=== PATIENT | male | born 1945 | race Caucasian/White ===

== ENCOUNTER 2018-08-27 16:27 | Observation (INO) | payer MEDICARE, OTHER ==
[~2018-08-27] VITALS: Ht 182.9 cm; Wt 107.9 kg
[2018-08-27 17:34] LABS: BASOPHILS ABSOLUTE AUTO 0.03 K/mm3 (0.00-0.23); BASOPHILS PERCENT AUTO 0 % (0-2); EOSINOPHILS ABSOLUTE AUTO 0.03 K/mm3 (0.00-0.68); EOSINOPHILS PERCENT AUTO 0 % (0-6); Hematocrit 44.9 % (37.0-53.0); Hemoglobin 14.4 g/dL (13.5-17.5); IMMATURE GRAN ABSOLUTE AUTO 0.02 K/mm3 (0.00-0.10); IMMATURE GRAN PERCENT AUTO 0 % (0-1); LYMPHOCYTES ABSOLUTE AUTO 1.53 K/mm3 (0.84-5.20); LYMPHOCYTES PERCENT AUTO 21 % (21-46); MONOCYTES ABSOLUTE AUTO 0.43 K/mm3 (0.16-1.47); MONOCYTES PERCENT AUTO 6 % (4-13); Mean Corpuscular HGB 32.7 pg (26.0-34.0); Mean Corpuscular HGB Conc 32.1 g/dL (31.5-36.5); Mean Corpuscular Volume 102 fL (80-100); Mean Platelet Volume 10.7 fL (9.1-12.4); NEUTROPHILS ABSOLUTE AUTO 5.28 K/mm3 (1.96-9.15); NEUTROPHILS PERCENT AUTO 72 % (41-73); Platelet Count 214 K/mm3 (150-400); RDW Coefficient Variation 13.5 % (11.7-14.2); RDW Standard Deviation 51.5 fL (35.1-46.3); White Blood Cell Count 7.32 K/mm3 (4.00-11.30)
[2018-08-27 17:54] LABS: Alanine Aminotransfer (ALT/SGP 28 U/L (12-78); Albumin, Blood 3.3 g/dL (3.4-5.0); Albumin/Globulin Ratio 0.9 (0.8-1.8); Alk Phos 84 U/L (50-136); Anion Gap 6 mmol/L (6-16); Aspartate Aminotrans (AST/SGOT 34 U/L (12-37); Bilirubin, Total 0.5 mg/dL (0.1-1.0); Blood Urea Nitrogen 18 mg/dL (8-24); Bun/Creatinine Ratio 32.4 (12.0-20.0); CO2, Blood 25 mmol/L (21-32); Calcium, Blood 8.2 mg/dL (8.5-10.1); Chloride, Blood 107 mmol/L (98-108); Creatinine, Blood 0.56 mg/dL (0.60-1.20); Globulin, Blood 3.7 g/dL (2.2-4.0); Glomerular Filtration Rate >60 (60-); Glucose, Blood 113 mg/dL (70-99); Potassium, Blood 5.2 mmol/L (3.5-5.5); Sodium, Blood 138 mmol/L (136-145); Troponin I <0.015 ng/mL (0.000-0.040)
[2018-08-27] MEDS ORDERED: TIOT18 INH (19:06)
[2018-08-27] MEDS ORDERED: CILO100 PO (19:07)
[2018-08-27] MEDS ORDERED: NITR.4SL PO (19:07)
[2018-08-27] MEDS ORDERED: TAMS.4ER PO (19:07)
[2018-08-27] MEDS ORDERED: Pacerone100 MG PO ×2 (19:08)
[2018-08-27] MEDS ORDERED: CILO100 (19:08)
[2018-08-27] MEDS ORDERED: METO100ER PO (19:09)
[2018-08-27] MEDS ORDERED: DULO30 PO (19:09)
[2018-08-27] MEDS ORDERED: Isosorbide Dini30 MG (19:10)
[2018-08-27] MEDS ORDERED: ATOM40 (19:10)
[2018-08-28 01:25] LABS: Hematocrit 46.5 % (37.0-53.0); Hemoglobin 14.7 g/dL (13.5-17.5); Mean Corpuscular HGB 32.9 pg (26.0-34.0); Mean Corpuscular HGB Conc 31.6 g/dL (31.5-36.5); Mean Corpuscular Volume 104 fL (80-100); Mean Platelet Volume 10.1 fL (9.1-12.4); Platelet Count 190 K/mm3 (150-400); RDW Coefficient Variation 13.4 % (11.7-14.2); RDW Standard Deviation 51.5 fL (35.1-46.3); Red Blood Cell Count 4.47 M/mm3 (4.30-5.90); White Blood Cell Count 7.35 K/mm3 (4.00-11.30)
[2018-08-28 01:44] LABS: CPK Creatine Kinase 48 U/L (39-308); Troponin I <0.015 ng/mL (0.000-0.040)
[2018-08-28] MEDS ORDERED: Plavix75 MG PO (02:28)
[2018-08-28] MEDS ORDERED: ATOR40TA PO (02:29)
[2018-08-28] MEDS ORDERED: Isosorbide Mono30 MG PO (02:29)
[2018-08-28] MEDS ORDERED: Flonase 0.05% N16 GM (02:31)
[2018-08-28] MEDS ORDERED: Hydrocodone-Ap1 EA20 PO (02:32)
[2018-08-28] MEDS ORDERED: ASPI81CH PO (02:33)
--- NOTE | 2018-08-28 05:33 | NUR ---
T/F AND SUMMARY: REPORT RECIEVED FROM POOJA QUIÑONES, FINANCIAL REPORTING ANALYST AND PT T/F TO ROOM 306 AT 2236 W/ AT BEDSIDE. 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 HE SPECIFIES NEEDS THOUGH AND HAS NO ISSUE REMEMBERING TO CALL FOR ASSIST. PT HAS DENIED CP AND ALL OTHER S/S CARDIAC DISTRESS. TROPS REMAIN (-) AND PT IN NSR W/BBB AT 60'S BPM PER PCU PARKING LOT MANAGER. PT HAS PM/DEFIBRILATOR W/PAPERWORK ON CHART. HE REPORTS RECENT NUMBNESS TO FINGERTIPS AND INTERMITTENT L.ARM PAIN AND CHEST PRESSURE PRIOR TO ADMIT REQUIRING NTG PRN AT HOME. HE HAS AN EXTENSIVE CARDIAC HX W/PM INTERROGATION PERFORMED IN ER PER REPORT. PT ALSO REPORTS FEELING WEAK AND MALAISE LATELY. HE USES L.ARM CRUTCH AT BASELINE D/T HIP AND KNEE REPLACEMENTS. PT WEARS 3L O2 AT ALL TIMES AT BASELINE AND CPAP AT HS, TO BRING IN MACHINE. LASIX WAS PROVIDED PER EMAR W/BNP ELEVATION NOTED AND BLE SWELLING OBSERVED. SCATTERED BRUISES OBSERVED AND PT TAKES PLAVIX AT HOME. MED LIST SHOULD BE REEVALUATED D/T CONFUSING DOSAGES, WILL DISCUSS W/DAY RN. SS CX WAS PLACED D/T PT AND BEING DISPLACED BY [place] FIRE. THEY LIVE IN AT THIS TIME AND ARE IN NEED OF LOCAL PCP, SPECIALISTS ([facility]W WORKDAY DIRECTOR AND NEUROLOGIST IN [place]), HOME O2 AND POSSIBLE ASSIST W/PTSD, ANXIETY. NO ACUTE CHANGES, VSS/AFEBRILE. WILL MONITOR AND REPORT TO DAY RN.
[2018-08-28 09:31] LABS: Alanine Aminotransfer (ALT/SGP 26 U/L (12-78); Albumin, Blood 3.9 g/dL (3.4-5.0); Albumin/Globulin Ratio 1.1 (0.8-1.8); Alk Phos 95 U/L (50-136); Anion Gap 7 mmol/L (6-16); Aspartate Aminotrans (AST/SGOT 14 U/L (12-37); Bilirubin, Total 0.6 mg/dL (0.1-1.0); Blood Urea Nitrogen 16 mg/dL (8-24); Bun/Creatinine Ratio 20.6 (12.0-20.0); CO2, Blood 31 mmol/L (21-32); CPK Creatine Kinase 47 U/L (39-308); Calcium, Blood 8.8 mg/dL (8.5-10.1); Chloride, Blood 105 mmol/L (98-108); Creatinine, Blood 0.78 mg/dL (0.60-1.20); Globulin, Blood 3.7 g/dL (2.2-4.0); Glomerular Filtration Rate >60 (60-); Glucose, Blood 122 mg/dL (70-99); Potassium, Blood 4.1 mmol/L (3.5-5.5); Sodium, Blood 143 mmol/L (136-145); Total Protein, Blood 7.6 g/dL (6.4-8.2); Troponin I <0.015 ng/mL (0.000-0.040)
--- NOTE | 2018-08-28 12:54 | NUR ---
PT REPORTED CHEST PAIN RESOLVED WITH INCREASE OF IMDUR BUT NOW REPORTS A HEADACHE FROM THE MEDICATIONS. PRN ALEVE ORDERED AND GIVEN.
--- NOTE | 2018-08-28 13:33 | NUR ---
ECHOCARDIOGRAM COMPLETE
--- NOTE | 2018-08-28 16:45 | NUR ---
SHIFT SUMMARY- PT A/OX4, UP INDEP WITH COLIN HOOPERUTCH. PT MEDICATED X2 WITH NORCO FOR CHRONIC RIGHT HIP PAIN, PRN ALEVE X1 FOR HEADACHE. PT REPORTED CHEST CRAMPING THIS AM BUT RESOLVED AFTER INCREASE OF IMDUR TO 60MG. PT REPORTS CHRONIC NUMBNESS TO FINGERS. LS DIMINISHED WITH EXP WHEEZES, PT RECEIVING NEBS T/O THE DAY. HOME 02 DEPENDANT AT 3L N/C, SPOUSE BROUGHT IN CPAP FOR TONIGHT AND REFUSED CONT BIOX. HOME 02 EVAL ORDERED PRIOR TO DISHCHARGE TO GET PT SET UP WITH A LOCAL 02 PROVIDER. TELE NSR WITH BBB AT 68. DEPRESSION MEDS ADJUSTED. SOCIAL SERVICE TO ASSIST PT TOMORROW WITH ESTABLISHING A PCP AND MELTER SUPERVISOR. NO OTHER ACUTE CHANGES THIS SHIFT.
--- NOTE | 2018-08-29 05:15 | NUR ---
SHIFT SUMMARY NO CHANGES OVERNIGHT. PT HAS SLEPT MOST OF THE NIGHT, AND HAS NOT HAD ANY NEEDS. INDEPENDENT IN THE ROOM. O2 IN PLACE AT 3L, SOB WITH EXERTION. LUNGS DIMINISHED. ASSESSMENT HAS REMAINED UNCHANGED. HE HAS DENIED CHEST PAIN OR PAIN OF ANYKIND, NO N/V. RESTFUL NIGHT. PLAN IS FOR S/S CONSULT, THEN DC. PT PLESANT AND COOPERATIVE. A/OX4. WILL CONTINUE TO MONITOR AND REPORT TO ONCOMING RN.
--- NOTE | 2018-08-29 12:25 | NUR ---
HOME O2 ORDERED DR. GOMEZ CALLED & NOTIFIED THAT PT DOES NOT HAVE NEEDED EQUIPMENT AT HOME FOR O2 SUPPLIES. NEW HOME O2 EVAL ORDERED. RT AWARE OF ORDER. WILL CONTINUE TO ORDER
--- NOTE | 2018-08-29 14:00 | NUR ---
DEVICE INTERROGATION DONE PER ORDER. PT THOUGH HE GOT SHOCKED A WEEK AGO. NORMAL FUNCTIONING DUAL CHAMBER ICD.ATRIAL LEAD IMPEDANCE 480 OHMS. VENTRICULAR LEAD IMPEDANCE 460 OHMS. P WAVE 4.0mV. R WAVE 11.7mV. ATRIAL CPATURE THRESHOLD .75V@.5ms.VENTRICULAR CAPTURE THRESHOLD .625V@.5 ms. Ap 47%. [place] <1%. NO EPISODES NOTED.
[2018-08-29] MEDS ORDERED: Lopressor 25 mg25 MG PO (14:49)
[2018-08-29] MEDS ORDERED: FURO40 PO (14:51)
[2018-08-29] MEDS ORDERED: LISI5 PO (14:53)
[2018-08-29] MEDS ORDERED: PAXIL40 MG PO (14:54)
[2018-08-29] MEDS ORDERED: PANT40 PO (14:55)
--- NOTE | 2018-08-29 16:43 | NUR ---
PT DISCHARGED PT DISCHARGED AT 1630. PT IN STABLE CONDITION WITH VSS. PT & EDUCATED ON MEDICATION CHANGES & FOLLOW UP APPOINTMENTS. [facility] ORIENTED PT & FAMILY TO HOME O2 USE. PT INSTRUCTED TO CALL [facility] WHEN HOME TO HAVE CONCENTRATOR SET UP. IV REMOVED & INTACT. PT BELONGINGS GATHERED. PT WHEELED OUT BY THIS RN AND DRIVEN HOME BY .
--- NOTE | 2018-08-29 17:10 | NUR ---
Per admit trigger, I attempted to meet with Saul Carlson regarding and Advanced directive for him. He was discharged before I could see him.
== END 2018-08-29 16:26 | disposition home or self-care (01) ==
LOC: ER 16:27 → MEDS 16:28
PROVIDERS: Emergency Medicine; ADMIT Internal Medicine
DX: R07.89 Other chest pain (principal); I11.0 Hypertensive heart disease with heart failure; I50.21 Acute systolic (congestive) heart failure; I25.110 Atherosclerotic heart disease of native coronary artery with unstable angina pectoris; J44.9 Chronic obstructive pulmonary disease, unspecified; I73.9 Peripheral vascular disease, unspecified; F43.10 Post-traumatic stress disorder, unspecified; I25.5 Ischemic cardiomyopathy; I25.2 Old myocardial infarction; E78.5 Hyperlipidemia, unspecified; F43.9 Reaction to severe stress, unspecified; E66.01 Morbid (severe) obesity due to excess calories; Z95.5 Presence of coronary angioplasty implant and graft; Z99.81 Dependence on supplemental oxygen; Z88.5 Allergy status to narcotic agent; Z79.899 Other long term (current) drug therapy; Z79.02 Long term (current) use of antithrombotics/antiplatelets; Z95.810 Presence of automatic (implantable) cardiac defibrillator; Z79.82 Long term (current) use of aspirin; Z68.31 Body mass index [BMI] 31.0-31.9, adult
CPT/HCPCS: 36415; 71046; 80053; 82550; 83880; 84484; 85025; 85027; 93005; 93010; 93283; 93306; 94640; 94664; 94760; 94761; 96372; 96374; 96376; 99285-25; G0378; J1650; J1940

== ENCOUNTER 2018-11-03 09:56 | Emergency (ER) | payer MEDICARE, OTHER ==
[~2018-11-03] VITALS: Ht 182.9 cm; Wt 106.6 kg
[~2018-11-03 09:56] MED LIST changes: -CEPH500 PO; -Hydrocodone-Ap1 EA20 PO; -Nitroglycerin0.4 MG SL; -SPIRIVA RESPIMAT4 GM INH
[2018-11-03 10:26] LABS: BASOPHILS ABSOLUTE AUTO 0.03 K/mm3 (0.00-0.23); BASOPHILS PERCENT AUTO 0 % (0-2); EOSINOPHILS ABSOLUTE AUTO 0.03 K/mm3 (0.00-0.68); EOSINOPHILS PERCENT AUTO 0 % (0-6); Hematocrit 41.6 % (37.0-53.0); IMMATURE GRAN ABSOLUTE AUTO 0.06 K/mm3 (0.00-0.10); IMMATURE GRAN PERCENT AUTO 0 % (0-1); LYMPHOCYTES PERCENT AUTO 8 % (21-46); MONOCYTES ABSOLUTE AUTO 1.11 K/mm3 (0.16-1.47); MONOCYTES PERCENT AUTO 7 % (4-13); Mean Corpuscular HGB 32.2 pg (26.0-34.0); Mean Corpuscular HGB Conc 31.3 g/dL (31.5-36.5); Mean Corpuscular Volume 103 fL (80-100); Mean Platelet Volume 10.5 fL (9.1-12.4); NEUTROPHILS PERCENT AUTO 84 % (41-73); Platelet Count 170 K/mm3 (150-400); RDW Coefficient Variation 13.4 % (11.7-14.2); RDW Standard Deviation 51.5 fL (35.1-46.3); Red Blood Cell Count 4.04 M/mm3 (4.30-5.90); White Blood Cell Count 15.53 K/mm3 (4.00-11.30)
[2018-11-03 10:27] LABS: Source, Urine Clean Catch
[2018-11-03 10:30] LABS: Bilirubin, Urine Neg (Neg); Blood, Urine 4+ (Neg); Glucose Qualitative, Urine Neg (Neg); Ketones, Urine Neg (Neg); Leukocyte Esterase, Urine 3+ (Neg); Nitrite, Urine Neg (Neg); Protein, Urine 2+ (Neg); Specific Gravity, Urine 1.015 (1.003-1.022); Urobilinogen, Urine NORM (Normal)
[2018-11-03 10:41] LABS: Appearance, Urine Hazy (Clear); Color, Urine Yellow (P-Yellow)
[2018-11-03 10:43] LABS: White Blood Cells, Urine 50-100 /hpf (0-5)
[2018-11-03 10:45] LABS: Bacteria Many /hpf; Squamous Epithelial Cells Rare /hpf (Few)
[2018-11-03 10:50] LABS: Alanine Aminotransfer (ALT/SGP 28 U/L (12-78); Albumin, Blood 3.4 g/dL (3.4-5.0); Albumin/Globulin Ratio 1.1 (0.8-1.8); Alk Phos 90 U/L (50-136); Anion Gap 4 mmol/L (6-16); Aspartate Aminotrans (AST/SGOT 10 U/L (12-37); Bilirubin, Total 0.7 mg/dL (0.1-1.0); Blood Urea Nitrogen 18 mg/dL (8-24); Bun/Creatinine Ratio 22.8 (12.0-20.0); CO2, Blood 29 mmol/L (21-32); Calcium, Blood 8.1 mg/dL (8.5-10.1); Chloride, Blood 107 mmol/L (98-108); Creatinine, Blood 0.79 mg/dL (0.60-1.20); Globulin, Blood 3.2 g/dL (2.2-4.0); Glomerular Filtration Rate >60 (60-); Glucose, Blood 107 mg/dL (70-99); Potassium, Blood 4.5 mmol/L (3.5-5.5); Sodium, Blood 140 mmol/L (136-145); Total Protein, Blood 6.6 g/dL (6.4-8.2); Troponin I <0.015 ng/mL (0.000-0.040)
[2018-11-03] MEDS ORDERED: CEPH500 PO (12:43)
[2018-11-03] MEDS ORDERED: SPIRIVA RESPIMAT4 GM INH (19:27)
[2018-11-03] MEDS ORDERED: Nitroglycerin0.4 MG SL (19:48)
[2018-11-03] MEDS ORDERED: Hydrocodone-Ap1 EA20 PO (19:50)
== END 2018-11-03 12:57 | disposition home or self-care (01) ==
LOC: ER 09:56
PROVIDERS: Emergency Medicine
DX: I20.9 Angina pectoris, unspecified (principal); N39.0 Urinary tract infection, site not specified; I10 Essential (primary) hypertension; I25.2 Old myocardial infarction; J44.9 Chronic obstructive pulmonary disease, unspecified; Z79.899 Other long term (current) drug therapy
CPT/HCPCS: 36415; 71045; 80053; 81001; 83880; 84484; 85025; 87077; 87086; 87186; 93005; 93010; 96361; 96365; 96375; 99285-25; J0696; J1170; J7030

== ENCOUNTER 2018-11-03 17:22 | Inpatient (IN) | payer MEDICARE, OTHER ==
[~2018-11-03] VITALS: Ht 180.3 cm; Wt 104.3 kg
[~2018-11-03 17:22] MED LIST changes: +CEPH500 PO
[2018-11-03 18:38] LABS: BASOPHILS ABSOLUTE AUTO 0.02 K/mm3 (0.00-0.23); BASOPHILS PERCENT AUTO 0 % (0-2); EOSINOPHILS PERCENT AUTO 0 % (0-6); Hematocrit 40.6 % (37.0-53.0); IMMATURE GRAN ABSOLUTE AUTO 0.12 K/mm3 (0.00-0.10); IMMATURE GRAN PERCENT AUTO 1 % (0-1); LYMPHOCYTES ABSOLUTE AUTO 0.77 K/mm3 (0.84-5.20); LYMPHOCYTES PERCENT AUTO 4 % (21-46); MONOCYTES ABSOLUTE AUTO 1.43 K/mm3 (0.16-1.47); MONOCYTES PERCENT AUTO 7 % (4-13); Mean Corpuscular HGB 32.7 pg (26.0-34.0); Mean Corpuscular Volume 102 fL (80-100); Mean Platelet Volume 10.6 fL (9.1-12.4); NEUTROPHILS ABSOLUTE AUTO 17.14 K/mm3 (1.96-9.15); NEUTROPHILS PERCENT AUTO 88 % (41-73); Platelet Count 146 K/mm3 (150-400); RDW Coefficient Variation 13.4 % (11.7-14.2); RDW Standard Deviation 51.3 fL (35.1-46.3); Red Blood Cell Count 3.97 M/mm3 (4.30-5.90); White Blood Cell Count 19.48 K/mm3 (4.00-11.30)
[2018-11-03 18:47] LABS: Troponin I <0.015 ng/mL (0.000-0.040)
[2018-11-03 18:48] LABS: Alanine Aminotransfer (ALT/SGP 23 U/L (12-78); Albumin, Blood 3.2 g/dL (3.4-5.0); Alk Phos 82 U/L (50-136); Anion Gap 7 mmol/L (6-16); Aspartate Aminotrans (AST/SGOT 10 U/L (12-37); Blood Urea Nitrogen 17 mg/dL (8-24); Bun/Creatinine Ratio 21.7 (12.0-20.0); CO2, Blood 24 mmol/L (21-32); Chloride, Blood 108 mmol/L (98-108); Creatinine, Blood 0.78 mg/dL (0.60-1.20); Globulin, Blood 3.2 g/dL (2.2-4.0); Glomerular Filtration Rate >60 (60-); Glucose, Blood 147 mg/dL (70-99); Potassium, Blood 4.2 mmol/L (3.5-5.5); Sodium, Blood 139 mmol/L (136-145); Total Protein, Blood 6.4 g/dL (6.4-8.2)
[2018-11-03] MEDS ORDERED: SPIRIVA RESPIMAT4 GM INH (19:27)
[2018-11-03] MEDS ORDERED: Nitroglycerin0.4 MG SL (19:48)
[2018-11-03] MEDS ORDERED: Hydrocodone-Ap1 EA20 PO (19:50)
--- NOTE | 2018-11-04 05:16 | NUR ---
0435 RECEIVED REPORT FROM ED RN AROUND 0420. ARRIVED TO THE MEDICAL FLOOR @ 0435 VIA BED. CHANGED BEDS OUT OF ROOM. ORIENTED TO ROOM AND CALL SYSTEM. TELE PLACED AND VERIFIED. RUNNING NSR WITH BBB AND 1 DEGREE. VSS/AFEBRILE. ON 3L VIA NC WHICH IS HOME DOSE. NO C/O PAIN/DISCOMFORT. WCTM. BED IN LOWEST POSITION. CALL LIGHT WITHIN REACH.
[2018-11-04 06:15] LABS: Hematocrit 38.6 % (37.0-53.0); Hemoglobin 12.1 g/dL (13.5-17.5); Mean Corpuscular HGB 32.5 pg (26.0-34.0); Mean Corpuscular HGB Conc 31.3 g/dL (31.5-36.5); Mean Corpuscular Volume 104 fL (80-100); Mean Platelet Volume 10.1 fL (9.1-12.4); Platelet Count 130 K/mm3 (150-400); RDW Coefficient Variation 13.7 % (11.7-14.2); RDW Standard Deviation 53.1 fL (35.1-46.3); Red Blood Cell Count 3.72 M/mm3 (4.30-5.90); White Blood Cell Count 19.32 K/mm3 (4.00-11.30)
[2018-11-04 06:31] LABS: Anion Gap 7 mmol/L (6-16); Blood Urea Nitrogen 17 mg/dL (8-24); Bun/Creatinine Ratio 23.8 (12.0-20.0); CO2, Blood 25 mmol/L (21-32); Calcium, Blood 7.9 mg/dL (8.5-10.1); Chloride, Blood 109 mmol/L (98-108); Creatinine, Blood 0.72 mg/dL (0.60-1.20); Glomerular Filtration Rate >60 (60-); Glucose, Blood 140 mg/dL (70-99); Potassium, Blood 3.9 mmol/L (3.5-5.5); Sodium, Blood 141 mmol/L (136-145)
--- NOTE | 2018-11-04 07:44 | NUR ---
SHIFT SUMMARY: PT ARRIVED TO ROOM AT 0435 VIA GURNEY. PT AOX3 PLEASANT AND COOPERATIVE. REPORTS HE ARRIVED IN ED YESTERDAY, THEY TOLD HIM HE HAD UTI AND SENT HIM HOME WITH ANTIBOTICS. THEY ARRIVED BACK AT HOME, HE WAS UNABLE TO GET OUT OF THE CAR. ATTEMPTED TO GET HIM OUT WAS UNABLE TO, HAD TO CALL 911 AT WHICH HE RETURNED BACK TO ER, DUE TO INABILITY TO BREATH. HE HAS COPD, WITH LONG HISTORY OF CARDIO PROBLEMS, 8 STENTS, AND BYPASS YEARS AGO. LONG HX OF BULL RIDING THAT CAUSED ALOT OF INJURIES. HE DOES REPORT HX OF DEMENTIA BUT WAS ABLE TO GIVE HISTORY WELL. LUNG SOUNDS ARE VERY TIGHT AND DIMINISHED THROUGHOUT. IS ON 3L O2 AT HOME, AND IS CURRENTLY TAKING NC 3L IN ROOM. SOB NOTED WITH EXERTION OF JUST SITTING UP. COUGH MOIST WITH LITTLE PRODUCTION. REPORTS HE DID VOMIT LARGE AMOUNT OF BRIGHT GREEN PRIOR TO EMT ARRIVING. HAS BEEN FEELING VERY WEAK AND INABILITY TO DO NORMAL ADLS. HR PER CLIENT CARE COORDINATOR WAS 1ST DEGREE BUNDLE BRANCH, WITH PVC AND NORMAL SINUS RYTHEM AVERAGING IN 70'S. CURRENTLY DENIES CP OR DISCOMFORT. DID FEEL LIKE THERE WAS SOMETHING GOING ON WHEN HE WAS UNABLE TO GET OUT OF THE CAR. WBC IS ELVATED PER LABS. ABD SOFT WITH BT X4 REPORTS DIARRHEA LAST FEW DAYS. IV WITH FLUIDS INFUSING WELL. SKIN PWD NO SKIN BREAKDOWN. WEAKNESS NOTED WITH ANTISQUEAK FILLER AND DORSAL FLEXTION. ENCOURAGED PATIENT TO USE CALL SYSTEM TO GET UP. DENIES ANY NAUSEA AT THIS TIME. REPORTS PAIN IN LOWER BACK AND RIGHT HIP. WILL DELEIVER PAIN MEDS. REPORTS WILL BE IN LATER TODAY. NO OTHER CONCERNS TO NOTE.
--- NOTE | 2018-11-04 17:37 | NUR ---
SHIFT SUMMARY PT IS A/O, CALM, AND COOPERATIVE THROUGHOUT THE DAY. PT STOOD AT THE SIDE OF THE BED AND TRIED TO HAVE GIVE HIM A SPONGE BATH. HE BECAME VERY SHORT OF BREATH AND NEEDED HELP TO GET BACK TO BED. RESPIRATORY CAME AND GAVE HIM A TREATMENT. PT HAD A CHEST XRAY POSSIBLE PNEUMONIA. PT C/O PAIN IN BACK AND HIPS AND HE WAS MEDICATED PER EMAR. HAS BEEN IN ROOM WITH PT THROUGHOUT THE DAY.
[2018-11-04 17:47] LABS: Adenovirus Not Detected (NOT DETECT); Bordetella pertussis Not Detected (NOT DETECT); Chlamydophila pneumoniae Not Detected (NOT DETECT); Coronavirus 229E Not Detected (NOT DETECT); Coronavirus HKU1 Not Detected (NOT DETECT); Coronavirus NL63 Not Detected (NOT DETECT); Coronavirus OC43 Not Detected (NOT DETECT); Human Metapneumovirus Not Detected (NOT DETECT); Human Rhinovirus/Enterovirus Not Detected (NOT DETECT); Influenza A Not Detected (NOT DETECT); Influenza A/2009-H1 Not Detected (NOT DETECT); Influenza A/H1 Not Detected (NOT DETECT); Influenza A/H3 Not Detected (NOT DETECT); Influenza B Not Detected (NOT DETECT); Mycoplasma pneumoniae Not Detected (NOT DETECT); Parainfluenza Virus 1 Not Detected (NOT DETECT); Parainfluenza Virus 2 Not Detected (NOT DETECT); Parainfluenza Virus 3 Not Detected (NOT DETECT); Parainfluenza Virus 4 Not Detected (NOT DETECT); Respiratory Syncytial Virus Not Detected (NOT DETECT)
[2018-11-05 01:03] LABS: Adenovirus F 40/41 Not Detected (NOT DETECT); Astrovirus Not Detected (NOT DETECT); Campylobacter Sp Not Detected (NOT DETECT); Cryptosporidium Not Detected (NOT DETECT); Cyclospora Cayetanensis Not Detected (NOT DETECT); E. Coli O157 Not Detected (NOT DETECT); Entamoeba Histolytica Not Detected (NOT DETECT); Enteroaggregative E. coli-EAEC Not Detected (NOT DETECT); Enteropathogenic E. coli-EPEC Not Detected (NOT DETECT); Enterotoxigenic E. coli-ETEC Not Detected (NOT DETECT); Giardia Lamblia Not Detected (NOT DETECT); Norovirus GI/GII Not Detected (NOT DETECT); Plesiomonas Shigelloides Not Detected (NOT DETECT); Rotavirus A Not Detected (NOT DETECT); Salmonella Sp Not Detected (NOT DETECT); Sapovirus Not Detected (NOT DETECT); Shiga Toxin-prod E. coli-STEC Not Detected (NOT DETECT); Shigella/Enteroin E. coli-EIEC Not Detected (NOT DETECT); Vibrio Cholerae Not Detected (NOT DETECT); Vibrio Sp Not Detected (NOT DETECT); Yersinia Enterocolitica Not Detected (NOT DETECT)
--- NOTE | 2018-11-05 03:26 | NUR ---
PHYSICIAN CORRESPONDENCE [id number] CALLED TO LET PHYSICIAN KNOW THAT PATIENT POSITIVE FOR C.DIFFICLE AND THAT HE HAS BEEN ISOLATED.
--- NOTE | 2018-11-05 04:38 | NUR ---
SHIFT SUMMARY A/O, ABLE TO MAKE NEEDS KNOWN. COOPERATIVE WITH CARE. CALLS AND ANSWERS QUESTIONS APPROPRIATELY. AT BEDSIDE. PATIENT WITH INCONTINENT VOID/BOWEL. GI PANEL SENT (SEE PREV GRETTA NOTE). EDUCATION WILL BE GIVEN ON C.DIFF. BECOMES VERY DYSPENIC WHILE TURNING; REQUIRES 2 PER TURN IS VERY WEAK. REMAINS ON 3L WITH CPAP @ HS. WCTM. BED IN LOWEST POSTION. CALL LIGHT AND BELONGINGS WITHIN REACH. REPORT TO ONCOMING RN.
[2018-11-05 06:19] LABS: BASOPHILS ABSOLUTE AUTO 0.02 K/mm3 (0.00-0.23); BASOPHILS PERCENT AUTO 0 % (0-2); EOSINOPHILS ABSOLUTE AUTO 0.02 K/mm3 (0.00-0.68); EOSINOPHILS PERCENT AUTO 0 % (0-6); Hematocrit 38.9 % (37.0-53.0); Hemoglobin 11.9 g/dL (13.5-17.5); IMMATURE GRAN ABSOLUTE AUTO 0.08 K/mm3 (0.00-0.10); IMMATURE GRAN PERCENT AUTO 1 % (0-1); LYMPHOCYTES ABSOLUTE AUTO 1.21 K/mm3 (0.84-5.20); LYMPHOCYTES PERCENT AUTO 8 % (21-46); MONOCYTES ABSOLUTE AUTO 0.83 K/mm3 (0.16-1.47); MONOCYTES PERCENT AUTO 6 % (4-13); Mean Corpuscular HGB 32.4 pg (26.0-34.0); Mean Corpuscular HGB Conc 30.6 g/dL (31.5-36.5); Mean Corpuscular Volume 106 fL (80-100); Mean Platelet Volume 10.6 fL (9.1-12.4); NEUTROPHILS ABSOLUTE AUTO 12.44 K/mm3 (1.96-9.15); NEUTROPHILS PERCENT AUTO 85 % (41-73); Platelet Count 126 K/mm3 (150-400); RDW Coefficient Variation 13.9 % (11.7-14.2); RDW Standard Deviation 54.5 fL (35.1-46.3); Red Blood Cell Count 3.67 M/mm3 (4.30-5.90)
[2018-11-05 06:32] LABS: Anion Gap 4 mmol/L (6-16); Blood Urea Nitrogen 15 mg/dL (8-24); Bun/Creatinine Ratio 19.9 (12.0-20.0); CO2, Blood 29 mmol/L (21-32); Calcium, Blood 8.6 mg/dL (8.5-10.1); Chloride, Blood 107 mmol/L (98-108); Creatinine, Blood 0.75 mg/dL (0.60-1.20); Glomerular Filtration Rate >60 (60-); Glucose, Blood 131 mg/dL (70-99); Phosphorus, Blood 2.6 mg/dL (2.5-4.9); Potassium, Blood 4.3 mmol/L (3.5-5.5); Sodium, Blood 140 mmol/L (136-145)
--- NOTE | 2018-11-05 16:52 | NUR ---
SHIFT SUMMARY PT AXO, PLEASANT AND COOPERATIVE WITH CARE. PT COMPLAINED OF PAIN, MEDICATED PER EMAR WITH GOOD RELIEF. PT SOB WITH EXERTION, DESATING WITH SOME EXERTION WELL. PT UP TO CHAIR WITH PHYSICAL THERAPY, SEE NOTE. PT'S SPOUSE BROUGHT IN HIS HOME C-PAP, RT AWARE. PT HAS ON AT THIS TIME, REPORTS FEELING BETTER. PT 93% AT THIS TIME. PT CONTINUES TO BE INCONTINENT OF BOWEL. PT REPORTS DYSURIA, DR AWARE, NEW ORDERS INITIATED. PT ALSO REQUESTED IMMODIUM FOR DIARRHEA, NURSE EDUCATED PT ON RISKS ASSOCIATED WITH THIS AND C-DIFF. IV PATENT AND SALINE LOCKED. BED IN LOW POSITION, CALL LIGHT WITHIN REACH.
[2018-11-06 05:42] LABS: BASOPHILS ABSOLUTE AUTO 0.01 K/mm3 (0.00-0.23); BASOPHILS PERCENT AUTO 0 % (0-2); EOSINOPHILS ABSOLUTE AUTO 0.02 K/mm3 (0.00-0.68); EOSINOPHILS PERCENT AUTO 0 % (0-6); Hematocrit 35.8 % (37.0-53.0); IMMATURE GRAN ABSOLUTE AUTO 0.03 K/mm3 (0.00-0.10); IMMATURE GRAN PERCENT AUTO 0 % (0-1); LYMPHOCYTES PERCENT AUTO 10 % (21-46); MONOCYTES ABSOLUTE AUTO 0.82 K/mm3 (0.16-1.47); MONOCYTES PERCENT AUTO 9 % (4-13); Mean Corpuscular HGB 31.7 pg (26.0-34.0); Mean Corpuscular HGB Conc 30.7 g/dL (31.5-36.5); Mean Platelet Volume 10.5 fL (9.1-12.4); NEUTROPHILS ABSOLUTE AUTO 6.95 K/mm3 (1.96-9.15); NEUTROPHILS PERCENT AUTO 80 % (41-73); Platelet Count 136 K/mm3 (150-400); RDW Coefficient Variation 13.8 % (11.7-14.2); RDW Standard Deviation 52.6 fL (35.1-46.3); Red Blood Cell Count 3.47 M/mm3 (4.30-5.90); White Blood Cell Count 8.73 K/mm3 (4.00-11.30)
[2018-11-06 05:45] LABS: Mean Corpuscular Volume 103 fL (80-100)
[2018-11-06 06:06] LABS: Albumin, Blood 2.8 g/dL (3.4-5.0); Anion Gap 4 mmol/L (6-16); Blood Urea Nitrogen 14 mg/dL (8-24); Bun/Creatinine Ratio 18.3 (12.0-20.0); CO2, Blood 29 mmol/L (21-32); Calcium, Blood 8.7 mg/dL (8.5-10.1); Chloride, Blood 107 mmol/L (98-108); Creatinine, Blood 0.76 mg/dL (0.60-1.20); Glomerular Filtration Rate >60 (60-); Glucose, Blood 123 mg/dL (70-99); Phosphorus, Blood 2.9 mg/dL (2.5-4.9); Potassium, Blood 4.4 mmol/L (3.5-5.5); Sodium, Blood 140 mmol/L (136-145)
--- NOTE | 2018-11-06 06:45 | NUR ---
shift summary: Pt medicated x 2 with norco last pm for back pain with adequate relief. Cpap on at hs- tolerated well. No chest pain reported last pm. Pt on telemetry
--- NOTE | 2018-11-06 09:05 | NUR ---
WHEN PT WENT TO TAKE PILLS, HE DROPPED (HE THINKS) TWO PILLS. NURSE LOOKED EXTENSIVELY FOR DROPPED PILLS AND COULDNT FIND THEM. NURSE WILL KEEP LOOKING BUT AT THIS POINT ARE UNSURE WHICH WERE DROPPED
--- NOTE | 2018-11-06 19:26 | NUR ---
AT SHIFT CHANGE THIS MORNING PT WAS VERY UPSET, COMPLAINING ABOUT A RUDE ROCKET MOTOR MECHANIC LAST NIGHT. NURSE APPLIED ACTIVE LISTENING AND THERAPEUTIC COMMINICATION TO LISTEN TO PT CONCERNS AND APOLOGIZE. THROUGHOUT THE DAY, PT WAS HAPPY, TALKING WITH NURSE. NURSE AND ROCKET MOTOR MECHANIC PROVIDED EXTRA CARE. JUST PRIOR TO SHIFT CHANGE, PT DEMANDED THAT ROCKET MOTOR MECHANIC REFILL HIS CPAP MACHINE WITH WATER. ROCKET MOTOR MECHANIC STATED THAT SHE DID NOT KNOW HOW TO DO THAT SO SHE COULD NOT. PT GOT UPSET, BEGAN COMPLAINING ABOUT HIS CARE AGAIN, STATING THAT SOME STAFF HAVE BEEN TERRIBLE TO HIM. NURSE AGAIN APOLOGIZED.
--- NOTE | 2018-11-07 04:20 | NUR ---
Shift summary> Pt waking up at times very confused and hard to placate. Around 0300 pt wake up having a hard time breathing and not making much sense. Respiratory called and pt given a breathing treatment which seem to help some. pt up in chair. pt has an easier time breathing when up in chair. Pt has not requested any pain meds tonight. Pt now sleeping in chair.
--- NOTE | 2018-11-07 18:26 | NUR ---
NO ACUTE CHANGES NOTED, PT SPENT A LARGE AMOUNT OF TIME UP TO BEDSIDE CHAIR. NO C/O PAIN, WILL CONTINUE TO MONITOR AND REPORT TO ONCOMING RN
--- NOTE | 2018-11-08 03:51 | NUR ---
sHIFT SUMMARY: pT DOING MUCH BETTER THIS PM. gAVE PT A NORCO AT HS AND PT HAS BEEN ABLE TO SLEEP MOST OF NIGHT. Pt is up sleeping in chair and is able to breath much easier and get his sleep. No resp tx's requested last pm.
[2018-11-08 05:36] LABS: Anion Gap 4 mmol/L (6-16); Blood Urea Nitrogen 16 mg/dL (8-24); Bun/Creatinine Ratio 20.4 (12.0-20.0); CO2, Blood 34 mmol/L (21-32); Calcium, Blood 9.1 mg/dL (8.5-10.1); Chloride, Blood 105 mmol/L (98-108); Creatinine, Blood 0.78 mg/dL (0.60-1.20); Glomerular Filtration Rate >60 (60-); Glucose, Blood 100 mg/dL (70-99); Potassium, Blood 4.2 mmol/L (3.5-5.5); Sodium, Blood 143 mmol/L (136-145)
[2018-11-08] MEDS ORDERED: Florastor250 MG PO (11:27)
[2018-11-08] MEDS ORDERED: CEFP200 PO (11:27)
[2018-11-08] MEDS ORDERED: DULERA 200 MCG/13 GM INH (11:28)
[2018-11-08] MEDS ORDERED: SPIR25 PO (11:28)
[2018-11-08] MEDS ORDERED: ALBU90OI6 INH (11:29)
--- NOTE | 2018-11-08 15:59 | NUR ---
DISCHARGE DISCHARGE INSTRUCTIONS, FOLLOW UP APPOINTMENT AND MEDICATION LIST REVIEWED WITH PT AND HIS SPOUSE. QUESTIONS/CONCERNS ANSWERED. [facility]. HOME HEALTH COORDINATOR INTO TO SEE PT AND WALKER DELIVERED TO ROOM. PT AND SPOUSE VERBALLY INDICATED UNDERSTANDING OF ALL INSTRUCTIONS RECEIVED. ESCORTED OUT VIA W/C.
== END 2018-11-08 15:54 | disposition home health service (06) | DRG 871 ==
LOC: ER 17:22 → MEDS 20:06 → ERHOLD 20:06 → MEDS 11-04 04:33 → ENPENDDIS 11-08 10:27 → MEDS 11-08 15:54
PROVIDERS: Emergency Medicine; Family Medicine; Internal Medicine; Nurse Practitioner Acute Care; ADMIT Hospitalist
DX: A41.9 Sepsis, unspecified organism (principal); J18.9 Pneumonia, unspecified organism; J96.21 Acute and chronic respiratory failure with hypoxia; N39.0 Urinary tract infection, site not specified; I50.42 Chronic combined systolic (congestive) and diastolic (congestive) heart failure; B96.4 Proteus (mirabilis) (morganii) as the cause of diseases classified elsewhere; J44.9 Chronic obstructive pulmonary disease, unspecified; G47.33 Obstructive sleep apnea (adult) (pediatric); D64.9 Anemia, unspecified; D69.6 Thrombocytopenia, unspecified; E66.9 Obesity, unspecified; I25.10 Atherosclerotic heart disease of native coronary artery without angina pectoris; K21.9 Gastro-esophageal reflux disease without esophagitis; N40.1 Benign prostatic hyperplasia with lower urinary tract symptoms; F32.9 Major depressive disorder, single episode, unspecified
CPT/HCPCS: 36415; 71046; 76770; 80048; 80053; 80069; 83605; 83880; 84145; 84484; 85025; 85027; 87040; 87070; 87205; 87324; 87486; 87507; 87581; 87633; 87798; 93005; 93010; 94640; 94660; 94667; 94762; 96361; 96372-59; 96374; 97116; 97162; 97530; 99285-25; A9270-GY; J0456; J0696; J1650; J2405; J7030; J7050

== ENCOUNTER → 2018-11-03 | Outpatient (CLI) | payer MEDICARE, OTHER ==
[~2018-11-03] MED LIST: ASPI81CH PO; ATOM40; ATOR80 PO; Amiodarone HCl200 MG PO; CEPH500 PO; CILO100; CILO100 PO; DULO30 PO; FURO40 PO; Flonase 0.05% N16 GM; Hydrocodone-Ap1 EA20 PO; Isosorbide Dini30 MG; Isosorbide Mono60 MG PO; LISI5 PO; METO100ER PO; METO25ER PO; Nitroglycerin0.4 MG SL; PANT40 PO; PAXIL40 MG PO; Pacerone100 MG PO; Plavix75 MG PO; SPIRIVA RESPIMAT4 GM INH; TAMS.4ER PO
== END ==
LOC: LAB 12:23 → LAB SHORT 12:23
DX: N39.0 Urinary tract infection, site not specified (principal)
CPT/HCPCS: 87077; 87086; 87186

== ENCOUNTER 2019-05-30 07:16 | Observation (INO) | payer MEDICARE, OTHER ==
[~2019-05-30] VITALS: Ht 182.9 cm; Wt 111.9 kg
[~2019-05-30 07:16] MED LIST changes: +ALBU90OI6 INH; -ASPI81CH PO; +Aspirin EC81 MG PO; +CEFP200 PO; +DULERA 200 MCG/13 GM INH; +Florastor250 MG PO; +Hydrocodone-Ap1 EA20 PO; +Nitroglycerin0.4 MG SL; +SPIR25 PO; +SPIRIVA RESPIMAT4 GM INH
[2019-05-30] MEDS ORDERED: Pravachol40 MG PO (08:13)
[2019-05-30 08:19] LABS: BASOPHILS ABSOLUTE AUTO 0.03 K/mm3 (0.00-0.23); BASOPHILS PERCENT AUTO 1 % (0-2); EOSINOPHILS ABSOLUTE AUTO 0.03 K/mm3 (0.00-0.68); EOSINOPHILS PERCENT AUTO 1 % (0-6); Hematocrit 41.4 % (37.0-53.0); IMMATURE GRAN ABSOLUTE AUTO 0.02 K/mm3 (0.00-0.10); IMMATURE GRAN PERCENT AUTO 0 % (0-1); LYMPHOCYTES ABSOLUTE AUTO 1.13 K/mm3 (0.84-5.20); LYMPHOCYTES PERCENT AUTO 18 % (21-46); MONOCYTES ABSOLUTE AUTO 0.49 K/mm3 (0.16-1.47); MONOCYTES PERCENT AUTO 8 % (4-13); Mean Corpuscular HGB 32.7 pg (26.0-34.0); Mean Corpuscular HGB Conc 31.4 g/dL (31.5-36.5); Mean Corpuscular Volume 104 fL (80-100); Mean Platelet Volume 10.1 fL (9.1-12.4); NEUTROPHILS ABSOLUTE AUTO 4.72 K/mm3 (1.96-9.15); NEUTROPHILS PERCENT AUTO 74 % (41-73); Platelet Count 205 K/mm3 (150-400); RDW Coefficient Variation 13.1 % (11.7-14.2); RDW Standard Deviation 50.3 fL (35.1-46.3); Red Blood Cell Count 3.97 M/mm3 (4.30-5.90); White Blood Cell Count 6.42 K/mm3 (4.00-11.30)
[2019-05-30 08:35] LABS: Alanine Aminotransfer (ALT/SGP 24 U/L (12-78); Albumin, Blood 3.4 g/dL (3.4-5.0); Albumin/Globulin Ratio 1.1 (0.8-1.8); Alk Phos 74 U/L (50-136); Anion Gap 6 mmol/L (6-16); Aspartate Aminotrans (AST/SGOT 15 U/L (12-37); Bilirubin, Total 0.4 mg/dL (0.1-1.0); Blood Urea Nitrogen 18 mg/dL (8-24); Bun/Creatinine Ratio 33.1 (12.0-20.0); CO2, Blood 26 mmol/L (21-32); Calcium, Blood 8.7 mg/dL (8.5-10.1); Chloride, Blood 106 mmol/L (98-108); Creatinine, Blood 0.54 mg/dL (0.60-1.20); Globulin, Blood 3.2 g/dL (2.2-4.0); Glomerular Filtration Rate >60 (60-); Glucose, Blood 120 mg/dL (70-99); Potassium, Blood 4.4 mmol/L (3.5-5.5); Sodium, Blood 138 mmol/L (136-145); Total Protein, Blood 6.6 g/dL (6.4-8.2)
[2019-05-30] MEDS ORDERED: ARIPIPRAZOLE5 MG PO (11:51)
[2019-05-30] MEDS ORDERED: PRAZOSIN HCL2 MG PO (11:52)
[2019-05-30] MEDS ORDERED: Paxil20 MG PO (11:52)
[2019-05-30] MEDS ORDERED: SPIRIVA RESPIMAT4 G1 INH (11:53)
[2019-05-30] MEDS ORDERED: PRINIVIL5 MG PO (11:54)
[2019-05-30] MEDS ORDERED: Paxil40 MG PO (11:54)
[2019-05-30] MEDS ORDERED: NEBI5 PO (14:13)
[2019-05-30] MEDS ORDERED: PROAIR DIGIHAL90 MCG INH (14:13)
[2019-05-30] MEDS ORDERED: Hydrocodone-Ap1 EA20 PO (15:08)
[2019-05-30] MEDS ORDERED: NITR.4SL SL (15:12)
[2019-05-30] MEDS ORDERED: folate (15:15)
[2019-05-30] MEDS ORDERED: B 12 (15:16)
[2019-05-30 15:51] LABS: Source, Urine Clean Catch
[2019-05-30 15:59] LABS: Bilirubin, Urine Neg (Neg); Blood, Urine Neg (Neg); Glucose Qualitative, Urine Neg (Neg); Ketones, Urine Neg (Neg); Leukocyte Esterase, Urine Neg (Neg); Nitrite, Urine Neg (Neg); Protein, Urine Neg (Neg); Urobilinogen, Urine NORM (Normal)
[2019-05-30 16:00] LABS: Appearance, Urine Clear (Clear); Color, Urine Yellow (P-Yellow)
[2019-05-30 16:10] LABS: U Amphetamine Screen Not Detected; U Barbituate Screen Not Detected; U Benzodiazapine Screen Not Detected; U Buprenorphine Screen Not Detected; U Cannabinoids Screen Not Detected; U Cocaine Screen Not Detected; U Methadone Screen Not Detected; U Methamphetamine Screen Not Detected; U Opiates Screen DETECTED; U Oxycodone Screen Not Detected; U Phencyclidine Screen Not Detected; U Propoxyphene Screen Not Detected
--- NOTE | 2019-05-30 17:06 | NUR ---
ATTEMPTED TO STAND PATIENT FOR ORTHOSTATIC VS AND PATIENT WAS TOO UNSTEADY AND DIZZY TO GET A STANDING B/P. B/P WENT UP FROM LYING TO SITTING. MECLIZINE GIVEN TO TREAT VERTIGO.
[2019-05-31 05:02] LABS: BASOPHILS ABSOLUTE AUTO 0.03 K/mm3 (0.00-0.23); BASOPHILS PERCENT AUTO 1 % (0-2); EOSINOPHILS ABSOLUTE AUTO 0.04 K/mm3 (0.00-0.68); EOSINOPHILS PERCENT AUTO 1 % (0-6); Hemoglobin 13.8 g/dL (13.5-17.5); IMMATURE GRAN ABSOLUTE AUTO 0.02 K/mm3 (0.00-0.10); IMMATURE GRAN PERCENT AUTO 0 % (0-1); LYMPHOCYTES ABSOLUTE AUTO 1.39 K/mm3 (0.84-5.20); LYMPHOCYTES PERCENT AUTO 24 % (21-46); MONOCYTES ABSOLUTE AUTO 0.44 K/mm3 (0.16-1.47); MONOCYTES PERCENT AUTO 8 % (4-13); Mean Corpuscular HGB 32.9 pg (26.0-34.0); Mean Corpuscular HGB Conc 31.4 g/dL (31.5-36.5); Mean Corpuscular Volume 105 fL (80-100); Mean Platelet Volume 10.1 fL (9.1-12.4); NEUTROPHILS ABSOLUTE AUTO 3.92 K/mm3 (1.96-9.15); NEUTROPHILS PERCENT AUTO 67 % (41-73); Platelet Count 200 K/mm3 (150-400); RDW Coefficient Variation 13.3 % (11.7-14.2); RDW Standard Deviation 51.4 fL (35.1-46.3); White Blood Cell Count 5.84 K/mm3 (4.00-11.30)
[2019-05-31 05:26] LABS: Anion Gap 4 mmol/L (6-16); Blood Urea Nitrogen 13 mg/dL (8-24); CO2, Blood 29 mmol/L (21-32); Calcium, Blood 8.9 mg/dL (8.5-10.1); Chloride, Blood 107 mmol/L (98-108); Creatinine, Blood 0.62 mg/dL (0.60-1.20); Glomerular Filtration Rate >60 (60-); Glucose, Blood 108 mg/dL (70-99); Potassium, Blood 4.3 mmol/L (3.5-5.5); Sodium, Blood 140 mmol/L (136-145)
--- NOTE | 2019-05-31 07:30 | NUR ---
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 PT IS STILL REPORTING DIZZINESS WHEN MOVING OR SITTING UP, THOUGH HE WAS ABLE TO REMAIN SITTING UP ON THE SIDE OF THE BED W/O ASSISTANCE. HE WAS MEDICATED ONCE FOR BACK PAIN THIS AM WITH PRN NORCO. NO COMPLAINTS OF NAUSEA OR SOB. VITAL SIGNS STABLE. PT COMPLETED ONE BAG OF NS AT 125 ML/HR. NO ACUTE CHANGES IN PT CONDITION NOTED. WILL CONTINUE TO MONITOR AND TREAT PER EMAR UNTIL HAND OFF TO DAY SHIFT RN.
[2019-05-31] MEDS ORDERED: CLOP75 PO (15:28)
[2019-05-31] MEDS ORDERED: CYAN500 PO (15:28)
[2019-05-31] MEDS ORDERED: FOLI400 PO (15:29)
[2019-05-31] MEDS ORDERED: MOTION RELIEF25 MG PO (15:40)
--- NOTE | 2019-05-31 16:03 | NUR ---
DISCHARGE NOTE PT DISCHARGED VIA W/C POV WITH SPOUSE TO HOME AND IN NO ACUTE DISTRESS; RX CALLED TO PHARMACY BY TAI Powell RN. ALL BELONGINGS SENT WITH PATIENT. IV DISCONTINUED INTACT. PT VERBALIZED UNDERSTANDING OF MAKING FOLLOW UP APPOINTMENTS AND TAKING MEDICATIONS PRESCRIBED.
--- NOTE | 2019-05-31 18:37 | NUR ---
Spiritual Care inital note: Provided budget counselor and prayer to spouse. Pt slept peacefully throughout visit. No needs or concerns presented. Pt being d/c'd.
== END 2019-05-31 16:15 | disposition home health service (06) ==
LOC: ER 07:16 → MEDS 07:17
PROVIDERS: Emergency Medicine; Nurse Practitioner Acute Care; ADMIT Internal Medicine
DX: R42 Dizziness and giddiness (principal); I11.0 Hypertensive heart disease with heart failure; I50.22 Chronic systolic (congestive) heart failure; E66.9 Obesity, unspecified; J44.9 Chronic obstructive pulmonary disease, unspecified; I73.9 Peripheral vascular disease, unspecified; F32.9 Major depressive disorder, single episode, unspecified; K21.9 Gastro-esophageal reflux disease without esophagitis; I67.2 Cerebral atherosclerosis; I25.10 Atherosclerotic heart disease of native coronary artery without angina pectoris; Z79.82 Long term (current) use of aspirin; Z79.02 Long term (current) use of antithrombotics/antiplatelets; Z79.899 Other long term (current) drug therapy; Z99.81 Dependence on supplemental oxygen; Z99.89 Dependence on other enabling machines and devices; Z95.1 Presence of aortocoronary bypass graft; Z88.5 Allergy status to narcotic agent; Z66 Do not resuscitate; E78.5 Hyperlipidemia, unspecified; Z68.32 Body mass index [BMI] 32.0-32.9, adult
CPT/HCPCS: 36415; 70450; 80048; 80053; 81003; 83735; 85025; 93005; 93010; 94640; 94660; 94762; 96361; 96372; 96374; 97110; 97116; 97162; 97530; 99285-25; A9270-GY; G0378; J1650; J2765; J7030; Q0163

== ENCOUNTER 2019-06-06 17:05 | Emergency (ER) | payer MEDICARE, OTHER ==
[~2019-06-06] VITALS: Ht 185.4 cm; Wt 108.9 kg
[~2019-06-06 17:05] MED LIST changes: +ARIPIPRAZOLE5 MG PO; +B 12; +CLOP75 PO; +CYAN500 PO; +FOLI400 PO; +MOTION RELIEF25 MG PO; +NEBI5 PO; +NITR.4SL SL; +PRAZOSIN HCL2 MG PO; +PRINIVIL5 MG PO; +PROAIR DIGIHAL90 MCG INH; +Paxil20 MG PO; +Paxil40 MG PO; +Pravachol40 MG PO; +SPIRIVA RESPIMAT4 G1 INH; +folate
== END 2019-06-06 19:04 | disposition home or self-care (01) ==
LOC: ER 17:05
DX: S70.01XA Contusion of right hip, initial encounter (principal); I10 Essential (primary) hypertension; I25.10 Atherosclerotic heart disease of native coronary artery without angina pectoris; J44.9 Chronic obstructive pulmonary disease, unspecified; K21.9 Gastro-esophageal reflux disease without esophagitis; F32.9 Major depressive disorder, single episode, unspecified; G47.33 Obstructive sleep apnea (adult) (pediatric); Z99.89 Dependence on other enabling machines and devices; Z99.81 Dependence on supplemental oxygen; Z88.5 Allergy status to narcotic agent; Z79.899 Other long term (current) drug therapy; Z79.82 Long term (current) use of aspirin; Z79.51 Long term (current) use of inhaled steroids; Z79.01 Long term (current) use of anticoagulants; Z96.649 Presence of unspecified artificial hip joint; W19.XXXA Unspecified fall, initial encounter
CPT/HCPCS: 73502; 96372; 99283-25; J1170

== ENCOUNTER 2019-06-09 16:04 | Emergency (ER) | payer MEDICARE, OTHER ==
[~2019-06-09] VITALS: Ht 185.4 cm; Wt 108.9 kg
[2019-06-09 16:37] LABS: BASOPHILS ABSOLUTE AUTO 0.02 K/mm3 (0.00-0.23); BASOPHILS PERCENT AUTO 0 % (0-2); EOSINOPHILS ABSOLUTE AUTO 0.02 K/mm3 (0.00-0.68); EOSINOPHILS PERCENT AUTO 0 % (0-6); Hemoglobin 12.7 g/dL (13.5-17.5); IMMATURE GRAN ABSOLUTE AUTO 0.02 K/mm3 (0.00-0.10); IMMATURE GRAN PERCENT AUTO 0 % (0-1); LYMPHOCYTES ABSOLUTE AUTO 1.25 K/mm3 (0.84-5.20); LYMPHOCYTES PERCENT AUTO 14 % (21-46); MONOCYTES ABSOLUTE AUTO 0.66 K/mm3 (0.16-1.47); MONOCYTES PERCENT AUTO 8 % (4-13); Mean Corpuscular HGB 33.2 pg (26.0-34.0); Mean Corpuscular HGB Conc 31.8 g/dL (31.5-36.5); Mean Corpuscular Volume 104 fL (80-100); NEUTROPHILS ABSOLUTE AUTO 6.71 K/mm3 (1.96-9.15); NEUTROPHILS PERCENT AUTO 77 % (41-73); Platelet Count 204 K/mm3 (150-400); RDW Coefficient Variation 13.1 % (11.7-14.2); RDW Standard Deviation 50.4 fL (35.1-46.3); Red Blood Cell Count 3.83 M/mm3 (4.30-5.90); White Blood Cell Count 8.68 K/mm3 (4.00-11.30)
[2019-06-09 16:57] LABS: Alanine Aminotransfer (ALT/SGP 28 U/L (12-78); Albumin, Blood 3.5 g/dL (3.4-5.0); Albumin/Globulin Ratio 1.1 (0.8-1.8); Alk Phos 71 U/L (50-136); Anion Gap 4 mmol/L (6-16); Aspartate Aminotrans (AST/SGOT 14 U/L (12-37); Bilirubin, Total 0.2 mg/dL (0.1-1.0); Blood Urea Nitrogen 27 mg/dL (8-24); Bun/Creatinine Ratio 37.6 (12.0-20.0); CO2, Blood 26 mmol/L (21-32); Calcium, Blood 8.7 mg/dL (8.5-10.1); Chloride, Blood 109 mmol/L (98-108); Creatinine, Blood 0.72 mg/dL (0.60-1.20); Globulin, Blood 3.3 g/dL (2.2-4.0); Glomerular Filtration Rate >60 (60-); Glucose, Blood 98 mg/dL (70-99); Potassium, Blood 4.4 mmol/L (3.5-5.5); Sodium, Blood 139 mmol/L (136-145); Total Protein, Blood 6.8 g/dL (6.4-8.2)
[2019-06-09 17:15] LABS: Source, Urine Clean Catch
[2019-06-09 17:17] LABS: Bilirubin, Urine Neg (Neg); Blood, Urine Neg (Neg); Glucose Qualitative, Urine Neg (Neg); Ketones, Urine Neg (Neg); Leukocyte Esterase, Urine Neg (Neg); Nitrite, Urine Neg (Neg); Protein, Urine Neg (Neg); Specific Gravity, Urine 1.015 (1.003-1.022); Urobilinogen, Urine NORM (Normal)
[2019-06-09 17:25] LABS: Appearance, Urine Clear (Clear); Color, Urine Yellow (P-Yellow)
[2019-06-09] MEDS ORDERED: CYCL10 PO (19:30)
== END 2019-06-09 19:39 | disposition home or self-care (01) ==
LOC: ER 16:04
PROVIDERS: Emergency Medicine
DX: S70.01XA Contusion of right hip, initial encounter (principal); S40.011A Contusion of right shoulder, initial encounter; I10 Essential (primary) hypertension; I25.2 Old myocardial infarction; J44.9 Chronic obstructive pulmonary disease, unspecified; Z88.5 Allergy status to narcotic agent; Z79.899 Other long term (current) drug therapy; Z79.82 Long term (current) use of aspirin; Z79.01 Long term (current) use of anticoagulants; Z99.81 Dependence on supplemental oxygen; W18.30XA Fall on same level, unspecified, initial encounter
CPT/HCPCS: 72192; 73030; 73502; 80053; 81003; 85025; 93005; 93010; 96374; 99284-25; A9270; J1170

== ENCOUNTER 2019-07-09 15:37 | Emergency (ER) | payer MEDICARE, OTHER ==
[~2019-07-09] VITALS: Ht 182.9 cm; Wt 108.9 kg
[~2019-07-09 15:37] MED LIST changes: +CYCL10 PO
== END 2019-07-09 20:30 | disposition home or self-care (01) ==
LOC: ER 15:37
DX: G89.29 Other chronic pain (principal); M25.551 Pain in right hip; I11.0 Hypertensive heart disease with heart failure; I50.22 Chronic systolic (congestive) heart failure; I25.10 Atherosclerotic heart disease of native coronary artery without angina pectoris; K21.9 Gastro-esophageal reflux disease without esophagitis; J44.9 Chronic obstructive pulmonary disease, unspecified; F32.9 Major depressive disorder, single episode, unspecified; G47.33 Obstructive sleep apnea (adult) (pediatric); Z88.5 Allergy status to narcotic agent; Z79.899 Other long term (current) drug therapy; Z79.82 Long term (current) use of aspirin; Z79.51 Long term (current) use of inhaled steroids; Z79.01 Long term (current) use of anticoagulants
CPT/HCPCS: 73502; 96372; 99283-25; J1170

== ENCOUNTER 2019-12-31 06:12 | Observation (INO) | payer MEDICARE, OTHER ==
[~2019-12-31] VITALS: Ht 182.9 cm; Wt 113.7 kg
[~2019-12-31 06:12] MED LIST changes: +Bisoprolol Fumar5 MG PO; +Imdur60 MG PO; +PAXIL40 M1 PO; +Percocet 10-321 EACH PO
[2019-12-31 06:37] LABS: BASOPHILS ABSOLUTE AUTO 0.02 K/mm3 (0.00-0.23); BASOPHILS PERCENT AUTO 0 % (0-2); EOSINOPHILS ABSOLUTE AUTO 0.04 K/mm3 (0.00-0.68); EOSINOPHILS PERCENT AUTO 1 % (0-6); Hematocrit 41.5 % (37.0-53.0); Hemoglobin 12.5 g/dL (13.5-17.5); IMMATURE GRAN ABSOLUTE AUTO 0.01 K/mm3 (0.00-0.10); IMMATURE GRAN PERCENT AUTO 0 % (0-1); LYMPHOCYTES ABSOLUTE AUTO 1.46 K/mm3 (0.84-5.20); LYMPHOCYTES PERCENT AUTO 24 % (21-46); MONOCYTES ABSOLUTE AUTO 0.42 K/mm3 (0.16-1.47); MONOCYTES PERCENT AUTO 7 % (4-13); Mean Corpuscular HGB 31.3 pg (26.0-34.0); Mean Corpuscular HGB Conc 30.1 g/dL (31.5-36.5); Mean Corpuscular Volume 104 fL (80-100); Mean Platelet Volume 10.8 fL (9.1-12.4); NEUTROPHILS ABSOLUTE AUTO 4.07 K/mm3 (1.96-9.15); NEUTROPHILS PERCENT AUTO 68 % (41-73); Platelet Count 170 K/mm3 (150-400); RDW Coefficient Variation 13.8 % (11.7-14.2); RDW Standard Deviation 52.5 fL (35.1-46.3); White Blood Cell Count 6.02 K/mm3 (4.00-11.30)
[2019-12-31 06:57] LABS: Alanine Aminotransfer (ALT/SGP 21 U/L (12-78); Albumin, Blood 3.3 g/dL (3.4-5.0); Albumin/Globulin Ratio 0.9 (0.8-1.8); Alk Phos 85 U/L (50-136); Anion Gap 5 mmol/L (6-16); Aspartate Aminotrans (AST/SGOT 11 U/L (12-37); Bilirubin, Total 0.4 mg/dL (0.1-1.0); Blood Urea Nitrogen 17 mg/dL (8-24); Bun/Creatinine Ratio 24.8 (12.0-20.0); CO2, Blood 30 mmol/L (21-32); Calcium, Blood 8.7 mg/dL (8.5-10.1); Chloride, Blood 109 mmol/L (98-108); Creatinine, Blood 0.69 mg/dL (0.60-1.20); Globulin, Blood 3.7 g/dL (2.2-4.0); Glomerular Filtration Rate >60 (60-); Glucose, Blood 96 mg/dL (70-99); Potassium, Blood 3.9 mmol/L (3.5-5.5); Sodium, Blood 144 mmol/L (136-145); Troponin I <0.015 ng/mL (0.000-0.040)
[2019-12-31] MEDS ORDERED: MORP30 PO (07:52)
[2019-12-31] MEDS ORDERED: PRAVASTATIN SOD40 MG PO (07:55)
[2019-12-31] MEDS ORDERED: MORPHINE SULFAT15 M1 PO (11:55)
--- NOTE | 2019-12-31 17:02 | NUR ---
pt quite pleasant coop a/o, but occ forgetful on some details. states is noticable with details. pt states has had diarrhea for last 2 days. since wednesday. loose watery. called dr caban. orders for cdiff ruleout. pt is very concerned that has become incont of stool over last 2 days. has been incont urine some time. but is worse. very humiliated. pt reports pending revascularization with dr mojica next week on rt ankle. then radio frequency nerve ablation next month on back. this to help stop pain. bed in low position, call lite in reach, calls approp. bed alarm on for safety
[2020-01-01 04:51] LABS: BASOPHILS ABSOLUTE AUTO 0.01 K/mm3 (0.00-0.23); BASOPHILS PERCENT AUTO 0 % (0-2); EOSINOPHILS PERCENT AUTO 0 % (0-6); Hematocrit 40.3 % (37.0-53.0); Hemoglobin 12.5 g/dL (13.5-17.5); IMMATURE GRAN ABSOLUTE AUTO 0.04 K/mm3 (0.00-0.10); IMMATURE GRAN PERCENT AUTO 0 % (0-1); LYMPHOCYTES ABSOLUTE AUTO 1.01 K/mm3 (0.84-5.20); LYMPHOCYTES PERCENT AUTO 10 % (21-46); MONOCYTES ABSOLUTE AUTO 0.66 K/mm3 (0.16-1.47); MONOCYTES PERCENT AUTO 7 % (4-13); Mean Corpuscular HGB 31.3 pg (26.0-34.0); Mean Corpuscular Volume 101 fL (80-100); Mean Platelet Volume 10.8 fL (9.1-12.4); NEUTROPHILS ABSOLUTE AUTO 8.07 K/mm3 (1.96-9.15); NEUTROPHILS PERCENT AUTO 83 % (41-73); Platelet Count 176 K/mm3 (150-400); RDW Coefficient Variation 13.7 % (11.7-14.2); RDW Standard Deviation 51.1 fL (35.1-46.3); White Blood Cell Count 9.79 K/mm3 (4.00-11.30)
[2020-01-01 05:24] LABS: Alanine Aminotransfer (ALT/SGP 21 U/L (12-78); Albumin, Blood 3.5 g/dL (3.4-5.0); Albumin/Globulin Ratio 0.9 (0.8-1.8); Alk Phos 85 U/L (50-136); Anion Gap 5 mmol/L (6-16); Aspartate Aminotrans (AST/SGOT 8 U/L (12-37); Bilirubin, Total 0.3 mg/dL (0.1-1.0); Blood Urea Nitrogen 18 mg/dL (8-24); Bun/Creatinine Ratio 28.8 (12.0-20.0); CO2, Blood 29 mmol/L (21-32); Calcium, Blood 9.4 mg/dL (8.5-10.1); Chloride, Blood 108 mmol/L (98-108); Creatinine, Blood 0.62 mg/dL (0.60-1.20); Globulin, Blood 3.7 g/dL (2.2-4.0); Glomerular Filtration Rate >60 (60-); Glucose, Blood 130 mg/dL (70-99); Magnesium, Blood 2.1 mg/dL (1.6-2.4); Potassium, Blood 4.1 mmol/L (3.5-5.5); Sodium, Blood 142 mmol/L (136-145); Total Protein, Blood 7.2 g/dL (6.4-8.2)
--- NOTE | 2020-01-01 06:18 | NUR ---
SHIFT SUMMARY PT IS A 74 Y/O MALE, ADMITTED FOR CHF EXACERBATION. HE IS A&O X 3, SBA TO THE [facility] [place]. PT REPORTED THAT HE FEELS "BETTER" THIS AM, AND DENIED ANY SOB OR NAUSEA. PT WAS MEDICATED WITH PRN TYLENOL FOR CHRONIC BACK PAIN AND A WATKINS. VITAL SIGNS STABLE. PT IS ON 3L OF O2 VIA NC WHILE AWAKE, AND WAS ON CPAP DURING THE NIGHT. PT REPORTS THAT HE WAS UNABLE TO SLEEP DURING THE NIGHT. NO OTHER ACUTE CHANGES IN PT CONDITION NOTED DURING THE NIGHT. WILL CONTINUE TO MONITOR AND TREAT PER EMAR UNTIL HAND OFF TO DAY SHIFT RN.
[2020-01-01] MEDS ORDERED: FURO20 PO (12:07)
--- NOTE | 2020-01-01 14:53 | NUR ---
PT SITTING IN CHAIR AT BS DURING SHIFT REPORT. A&O, PLEASANT. DENIED NEEDS AT THAT TIME, EXCEPT WANTING TO GO HOME. HACK IN TO SEE PT; P/T ORDERED TO EVAL PT'S ABILITY TO CLIMB STAIRS AND GET INTO RV. PT ABLE TO WALK HALLS W/O DIFFICULTY WELL CLIMB UP AND DOWN STAIRS WITH P/T. NOTIFIED OF P/T EVAL RESULT. D/C ORDERS PLACED. PT BECAME A LITTLE IMPATIENT WAITING FOR D/C ORDERS, BUT REMAINED CO-OP. IV D/C'D WNL. D/C INSTRUCTIONS DISCUSSED WITH PT. CHEMIST WATER PURIFICATION TOOK PT OUT TO 'S CAR VIA W/C.
[2020-01-08] MEDS ORDERED: FLONASE SENSIM5.9 M1 INH (14:08)
[2020-01-08] MEDS ORDERED: PERCOCET 10-321 EAC1 PO (14:09)
[2020-01-08] MEDS ORDERED: ABILIFY MYCITE5 M2 PO (14:11)
[2020-01-08] MEDS ORDERED: PROAIR DIGIHAL90 MCG INH (14:12)
[2020-01-08] MEDS ORDERED: B-121000 MC7 PO (14:12)
[2020-01-08] MEDS ORDERED: CYCL10 PO (14:14)
== END 2020-01-01 12:29 | disposition home or self-care (01) ==
LOC: ER 06:12 → MEDS 06:13 → ENPENDDIS 01-01 11:38 → MEDS 01-01 12:29
PROVIDERS: Emergency Medicine; Nurse Practitioner Acute Care; ADMIT Family Medicine
DX: I11.0 Hypertensive heart disease with heart failure (principal); I50.9 Heart failure, unspecified; N40.0 Benign prostatic hyperplasia without lower urinary tract symptoms; F32.9 Major depressive disorder, single episode, unspecified; K21.9 Gastro-esophageal reflux disease without esophagitis; I25.10 Atherosclerotic heart disease of native coronary artery without angina pectoris; I50.42 Chronic combined systolic (congestive) and diastolic (congestive) heart failure; Z95.5 Presence of coronary angioplasty implant and graft; Z99.81 Dependence on supplemental oxygen; Z79.899 Other long term (current) drug therapy; Z79.82 Long term (current) use of aspirin; Z79.02 Long term (current) use of antithrombotics/antiplatelets; Z91.14 Patient's other noncompliance with medication regimen; Z88.5 Allergy status to narcotic agent; Z66 Do not resuscitate; J44.1 Chronic obstructive pulmonary disease with (acute) exacerbation; E66.01 Morbid (severe) obesity due to excess calories; Z99.89 Dependence on other enabling machines and devices; D53.9 Nutritional anemia, unspecified; G47.33 Obstructive sleep apnea (adult) (pediatric); Z95.1 Presence of aortocoronary bypass graft; Z68.32 Body mass index [BMI] 32.0-32.9, adult
CPT/HCPCS: 36415; 71045; 80053; 83735; 83880; 84484; 85025; 93005; 93010; 94640; 94644; 94660; 94760; 94762; 96372; 97162; 99285-25; A9270; A9270-GY; G0378; J1650; J1940; J2930

== ENCOUNTER 2020-01-07 07:44 | Emergency (ER) | payer MEDICARE, OTHER ==
[~2020-01-07] VITALS: Ht 182.9 cm; Wt 108.9 kg
[~2020-01-07 07:44] MED LIST changes: +FURO20 PO; +MORP30 PO; +MORPHINE SULFAT15 M1 PO; +PRAVASTATIN SOD40 MG PO
[2020-01-08] MEDS ORDERED: FLONASE SENSIM5.9 M1 INH (14:08)
[2020-01-08] MEDS ORDERED: PERCOCET 10-321 EAC1 PO (14:09)
[2020-01-08] MEDS ORDERED: ABILIFY MYCITE5 M2 PO (14:11)
[2020-01-08] MEDS ORDERED: PROAIR DIGIHAL90 MCG INH (14:12)
[2020-01-08] MEDS ORDERED: B-121000 MC7 PO (14:12)
[2020-01-08] MEDS ORDERED: CYCL10 PO (14:14)
== END 2020-01-07 10:44 | disposition home or self-care (01) ==
LOC: ER 07:44
DX: I73.9 Peripheral vascular disease, unspecified (principal); Z79.82 Long term (current) use of aspirin; Z79.899 Other long term (current) drug therapy; I10 Essential (primary) hypertension; I25.2 Old myocardial infarction; J44.9 Chronic obstructive pulmonary disease, unspecified
CPT/HCPCS: 93926; 99283-25

== ENCOUNTER 2020-01-09 06:17 | Day surgery (SDC) | payer MEDICARE, OTHER ==
[~2020-01-09] VITALS: Ht 175.3 cm; Wt 110.0 kg
[~2020-01-09 06:17] MED LIST changes: +ABILIFY MYCITE5 M2 PO; +B-121000 MC7 PO; +FLONASE SENSIM5.9 M1 INH; +PERCOCET 10-321 EAC1 PO
--- NOTE | 2020-01-09 10:48 | NUR ---
TO RECOVERY ROOM. LEFT GROIN SOFT NONTENDER. NO BLEEDING AT SITE. RIGHT PEDAL ACCESS NO BLEEDING AT SITE.
--- NOTE | 2020-01-09 11:16 | NUR ---
C/0 10+ BACK PAIN. FENTANYL 25 MCG IV GIVEN PER ORDER.
[2020-01-09] MEDS ORDERED: CLOP75 PO (11:40)
--- NOTE | 2020-01-09 11:43 | NUR ---
FENTANYL 25 MCG IV GIVEN FOR 10/10 BACK PAIN.
--- NOTE | 2020-01-09 12:13 | NUR ---
FENTANYL 25 MCG IV GIVEN FOR 10/10 BACK PAIN.
--- NOTE | 2020-01-09 13:21 | NUR ---
PT CONTINUES TO HAVE BACK DISCOMFORT R/T LAYING FLAT 03/23; REPORTS CHRONIC BACK PAIN; ADMINISTERED FENTANYL 25 MCG IV AND RAISED HOB-L GROIN SITE UNCHANGED.
--- NOTE | 2020-01-09 13:25 | NUR ---
UP AT BEDSIDE. SITTING IN CHAIR EATING LUNCH. BACK PAIN MUCH LESS IN CHAIR.
--- NOTE | 2020-01-09 13:47 | NUR ---
DISCHARGE INSTRUCTIONS GIVEN WITH VERBAL AND WRITTEN UNDERSTANDING
--- NOTE | 2020-01-09 14:25 | NUR ---
DR. JAMES HERE TO DISCUSS PROCEDURE. IV REMOVED INTACT, 2X2, COBAN AND MANUAL PRESSURE HELD.
--- NOTE | 2020-01-09 14:35 | NUR ---
DISCHARGED HME VIA WHEELCHAIR. DRIVING.
== END 2020-01-09 14:30 | disposition home or self-care (01) ==
LOC: MHTC 06:17
DX: I70.213 Atherosclerosis of native arteries of extremities with intermittent claudication, bilateral legs (principal); K44.9 Diaphragmatic hernia without obstruction or gangrene; I11.0 Hypertensive heart disease with heart failure; I50.22 Chronic systolic (congestive) heart failure; E66.01 Morbid (severe) obesity due to excess calories; F32.9 Major depressive disorder, single episode, unspecified; K21.9 Gastro-esophageal reflux disease without esophagitis; I25.10 Atherosclerotic heart disease of native coronary artery without angina pectoris; Z95.1 Presence of aortocoronary bypass graft; Z79.82 Long term (current) use of aspirin; Z79.02 Long term (current) use of antithrombotics/antiplatelets; Z79.899 Other long term (current) drug therapy; Z68.35 Body mass index [BMI] 35.0-35.9, adult
CPT/HCPCS: 37220; 37227; 75710; 75716; 75774; 76937; 85347; 99152; 99153; C1714; C1725; C1760; C1769; C1874; C1884; C1887; C1894; C2623; J1644; J2250; J3010; J7030; Q9967

== ENCOUNTER 2020-05-16 07:52 | Day surgery (SDC) | payer MEDICARE, OTHER ==
[~2020-05-16] VITALS: Ht 175.3 cm; Wt 108.0 kg
[~2020-05-16 07:52] MED LIST changes: +ARIP10; +ARYMO ER30 MG; +B-121000 MC6; +FLUT.05NI; +HYDMOR8
[2020-05-16 09:17] LABS: BASOPHILS ABSOLUTE AUTO 0.02 K/mm3 (0.00-0.23); BASOPHILS PERCENT AUTO 0 % (0-2); EOSINOPHILS ABSOLUTE AUTO 0.05 K/mm3 (0.00-0.68); EOSINOPHILS PERCENT AUTO 1 % (0-6); Hematocrit 41.3 % (37.0-53.0); Hemoglobin 12.8 g/dL (13.5-17.5); IMMATURE GRAN ABSOLUTE AUTO 0.03 K/mm3 (0.00-0.10); IMMATURE GRAN PERCENT AUTO 0 % (0-1); LYMPHOCYTES PERCENT AUTO 17 % (21-46); MONOCYTES ABSOLUTE AUTO 0.38 K/mm3 (0.16-1.47); MONOCYTES PERCENT AUTO 5 % (4-13); Mean Corpuscular HGB 31.1 pg (26.0-34.0); Mean Corpuscular Volume 100 fL (80-100); Mean Platelet Volume 10.2 fL (9.1-12.4); NEUTROPHILS ABSOLUTE AUTO 6.04 K/mm3 (1.96-9.15); NEUTROPHILS PERCENT AUTO 77 % (41-73); Platelet Count 179 K/mm3 (150-400); RDW Coefficient Variation 13.5 % (11.7-14.2); RDW Standard Deviation 49.3 fL (35.1-46.3); Red Blood Cell Count 4.12 M/mm3 (4.30-5.90); White Blood Cell Count 7.82 K/mm3 (4.00-11.30)
[2020-05-16 09:30] LABS: Prothrombin Time Results 10.7 Sec (9.7-11.5)
[2020-05-16 09:37] LABS: Anion Gap 2 mmol/L (6-16); Blood Urea Nitrogen 15 mg/dL (8-24); CO2, Blood 30 mmol/L (21-32); Calcium, Blood 8.9 mg/dL (8.5-10.1); Chloride, Blood 109 mmol/L (98-108); Creatinine, Blood 0.65 mg/dL (0.60-1.20); Glomerular Filtration Rate >60 (60-); Glucose, Blood 113 mg/dL (70-99); Potassium, Blood 4.4 mmol/L (3.5-5.5); Sodium, Blood 141 mmol/L (136-145)
--- NOTE | 2020-05-16 14:31 | NUR ---
RIGHT PEDAL SITE SOFT NON-TENDER WITH NO HEMATOMA AND NO PULSATILE BLEEDING AND INTACT DRESSING. LEFT FEMORAL GROIN SITE SOFT NON-TENDER WITH NO HEMATOMA AND NO PULSATILE BLEEDING AND INTACT DRESSING. PT DENIES CHEST PAIN. PT HAS CHORNIC LOWER BACK PAIN. CALL LIGHT IN REACH.
--- NOTE | 2020-05-16 14:49 | NUR ---
PT REPOSITIONED TO LEFT SIDE WHICH IMPROVED CHRONIC BACK PAIN.
--- NOTE | 2020-05-16 15:05 | NUR ---
FULL REPORT PROVIDED JASMINA ANDRE TO ASSUME CARE OF PT.
--- NOTE | 2020-05-16 16:02 | NUR ---
PT DRESSED, IV DC'D INTACT, ON THE WAY FOR RIDE, R PEDAL AND L GROIN SITES STABLE, PT WILL DC BY WC WHEN ARRIVES
== END 2020-05-16 16:15 | disposition home or self-care (01) ==
LOC: MHTC 07:52
PROVIDERS: Radiology Diagnostic Radiology
DX: I70.213 Atherosclerosis of native arteries of extremities with intermittent claudication, bilateral legs (principal); I25.10 Atherosclerotic heart disease of native coronary artery without angina pectoris; I11.0 Hypertensive heart disease with heart failure; I50.22 Chronic systolic (congestive) heart failure; J44.9 Chronic obstructive pulmonary disease, unspecified; N40.0 Benign prostatic hyperplasia without lower urinary tract symptoms; F32.9 Major depressive disorder, single episode, unspecified; K21.9 Gastro-esophageal reflux disease without esophagitis; G47.33 Obstructive sleep apnea (adult) (pediatric); Z95.810 Presence of automatic (implantable) cardiac defibrillator; Z95.1 Presence of aortocoronary bypass graft; Z79.82 Long term (current) use of aspirin; Z79.02 Long term (current) use of antithrombotics/antiplatelets; Z79.899 Other long term (current) drug therapy
CPT/HCPCS: 75625; 75716; 75774; 76937; 80048; 85025; 85347; 85610; 99152; 99153; C1714; C1725; C1757; C1760; C1769; C1874; C1887; C1894; C2623; C9767; J1644; J2250; J3010; J7030; J7050; Q9967

== ENCOUNTER 2020-07-31 06:28 | Day surgery (SDC) | payer MEDICARE, OTHER ==
[~2020-07-31] VITALS: Ht 182.9 cm; Wt 107.0 kg
[~2020-07-31 06:28] MED LIST changes: -ARIP10; +ARIP10 PO; -FOLI400 PO; +FOLIC ACID0.4 MG PO; -HYDMOR8; +HYDMOR8 PO; -Imdur60 MG PO; +PRAZ2 PO; -PRAZOSIN HCL2 MG PO
[2020-07-31] MEDS ORDERED: ANORO ELLIPTA1 EACH INH (07:05)
--- NOTE | 2020-07-31 13:08 | NUR ---
PT GROIN SITE STABLE. DRESSED WITH ASSISTANCE. GROIN SITE REMAINS STABLE AFTER DRESSING. HERE, DISCHARGE GONE OVER WITH AND PT, BOTH VERBALLIZE UNDWERSTANDING OF INSTRUCTIONS. PT TO PRIVATE VEHICLE PER W/C WITH ONE STAFF.
== END 2020-07-31 13:00 | disposition home or self-care (01) ==
LOC: MHTC 06:28
DX: I25.118 Atherosclerotic heart disease of native coronary artery with other forms of angina pectoris (principal); I11.0 Hypertensive heart disease with heart failure; I50.9 Heart failure, unspecified; I27.20 Pulmonary hypertension, unspecified; I25.2 Old myocardial infarction; J44.9 Chronic obstructive pulmonary disease, unspecified; E78.5 Hyperlipidemia, unspecified; E66.01 Morbid (severe) obesity due to excess calories; G47.33 Obstructive sleep apnea (adult) (pediatric); I73.9 Peripheral vascular disease, unspecified; Z68.31 Body mass index [BMI] 31.0-31.9, adult; Z95.810 Presence of automatic (implantable) cardiac defibrillator; Z95.1 Presence of aortocoronary bypass graft; Z99.81 Dependence on supplemental oxygen; Z79.01 Long term (current) use of anticoagulants; Z79.02 Long term (current) use of antithrombotics/antiplatelets; Z79.82 Long term (current) use of aspirin; Z88.5 Allergy status to narcotic agent
CPT/HCPCS: 76937; 93459; 99152; 99153; A9270; C1769; J1644; J2250; J3010; J7030; J7050; Q9967

== ENCOUNTER 2020-08-27 16:25 | Observation (INO) | payer MEDICARE, OTHER ==
[~2020-08-27] VITALS: Ht 182.9 cm; Wt 105.7 kg
[~2020-08-27 16:25] MED LIST changes: +ANORO ELLIPTA1 EACH INH
[2020-08-27 16:58] LABS: BASOPHILS ABSOLUTE AUTO 0.02 K/mm3 (0.00-0.23); BASOPHILS PERCENT AUTO 0 % (0-2); EOSINOPHILS ABSOLUTE AUTO 0.06 K/mm3 (0.00-0.68); EOSINOPHILS PERCENT AUTO 1 % (0-6); Hematocrit 36.4 % (37.0-53.0); Hemoglobin 11.6 g/dL (13.5-17.5); IMMATURE GRAN ABSOLUTE AUTO 0.02 K/mm3 (0.00-0.10); IMMATURE GRAN PERCENT AUTO 0 % (0-1); LYMPHOCYTES ABSOLUTE AUTO 1.07 K/mm3 (0.84-5.20); LYMPHOCYTES PERCENT AUTO 20 % (21-46); MONOCYTES ABSOLUTE AUTO 0.39 K/mm3 (0.16-1.47); MONOCYTES PERCENT AUTO 7 % (4-13); Mean Corpuscular HGB Conc 31.9 g/dL (31.5-36.5); Mean Corpuscular Volume 101 fL (80-100); Mean Platelet Volume 10.6 fL (9.1-12.4); NEUTROPHILS ABSOLUTE AUTO 3.86 K/mm3 (1.96-9.15); NEUTROPHILS PERCENT AUTO 71 % (41-73); Platelet Count 123 K/mm3 (150-400); RDW Coefficient Variation 13.6 % (11.7-14.2); RDW Standard Deviation 49.9 fL (35.1-46.3); Red Blood Cell Count 3.62 M/mm3 (4.30-5.90); White Blood Cell Count 5.42 K/mm3 (4.00-11.30)
[2020-08-27 17:17] LABS: Alanine Aminotransfer (ALT/SGP 20 U/L (12-78); Albumin, Blood 3.3 g/dL (3.4-5.0); Alk Phos 86 U/L (50-136); Anion Gap 4 mmol/L (6-16); Aspartate Aminotrans (AST/SGOT 13 U/L (12-37); Bilirubin, Total 0.4 mg/dL (0.1-1.0); Blood Urea Nitrogen 15 mg/dL (8-24); Bun/Creatinine Ratio 23.3 (12.0-20.0); CO2, Blood 28 mmol/L (21-32); Calcium, Blood 8.9 mg/dL (8.5-10.1); Chloride, Blood 113 mmol/L (98-108); Creatinine, Blood 0.64 mg/dL (0.60-1.20); Globulin, Blood 3.2 g/dL (2.2-4.0); Glomerular Filtration Rate >60 (60-); Glucose, Blood 106 mg/dL (70-99); Sodium, Blood 145 mmol/L (136-145); Total Protein, Blood 6.5 g/dL (6.4-8.2)
[2020-08-27 19:30] LABS: Source, Urine Clean Catch
[2020-08-27 19:33] LABS: Appearance, Urine Clear (Clear); Bilirubin, Urine Neg (Neg); Blood, Urine 4+ (Neg); Color, Urine Amber (P-Yellow); Glucose Qualitative, Urine Neg (Neg); Ketones, Urine Neg (Neg); Leukocyte Esterase, Urine 1+ (Neg); Nitrite, Urine Neg (Neg); Protein, Urine 2+ (Neg); Urobilinogen, Urine NORM (Normal)
[2020-08-27 19:38] LABS: Mucus Mod (0-Heavy); Red Blood Cells, Urine 25-50 /hpf (0-2)
[2020-08-27 19:39] LABS: Bacteria Few /hpf; Squamous Epithelial Cells Few /hpf (Few)
[2020-08-27 22:35] LABS: Influenza A, PCR NEGATIVE (NEGATIVE); Influenza B, PCR NEGATIVE (NEGATIVE); Resp Syncytial Virus, PCR NEGATIVE (NEGATIVE); SARS-Cov-2 (COVID-19) PCR, MMC NEGATIVE (NEGATIVE)
--- NOTE | 2020-08-28 01:29 | NUR ---
DARIUSZ MOHR WAS ADMITTED TO THE FLOOR FROM ER FOR UTI, VERTIGO, WEAKNESS. HE ARRIVED VIA GURNEY, AND TRANSFER WAS WITH SLIDER SHEET. HE IS VERY TIRED DUE TO RECEIVING PAIN MEDS. AOX3, COOPERATIVE. ABLE TO USE CALL LIGHT, FOLLOWS DIRECTION. LUNG SOUNDS ARE CLEAR. HR NORMAL S1 S2 SOUNDS, HISTORY OF CABG, HTN, STENTS, AND DEFIBULATOR. NO CHEST PAIN NOTED. DOES HAVE COPD AND USES 2 LITERS OF O2 AT HOME. HE IS RECEIVING IT HERE. INCONTIENT OF URINE, IS ABLE TO USE URINAL IF HE CAN GET IT IN TIME. REPORTS LOOSE STOOLS X1 WEEK. DID CHANGED ATTENDS WHERE HE HAS SOME LOOSE YELLOW STOOL. SKIN IN THE GROIN UNDER THE PANUS IS VERY MOIST, BROKEN DOWN. CLEANED AND APPLIED POWDER. REPORTS HAS PAIN ALL OVER WHICH IS NORMAL FOR HIM DUE TO HIS BULL FIGHTING AND RIDING. TELE PLACED, IVF STARTED. RESTING IN ROOM NOW, CALL LIGHT IS IN REACH.
--- NOTE | 2020-08-28 04:07 | NUR ---
DARIUSZ WOKE UP COMPLETLY CLEAR MINDED, BUT STATES THERE WERE A FEW THINGS HE DID NOT REMEMBER OF YESTERDAY. STILL HAVING POSITIONAL DIZZINESS WHEN WE ROLL HIM FOR ATTENDS CHANGE. HE DID HAVE A LOOSE YELLOW STOOL LARGE AMOUNT, SMELLED LIKE BABY POOP. HE ALSO REPORTED DIFFICULTY IN BREATHING AND SAID HE USES NEBS AT HOME. CALLED DR. CASTELLANOS AND GOT ORDER FOR RT BD PROTOCOL AND CPAP. HE CURRENTLY IS ON CPAP AND HOLDING ABOVE 90%. DOES HAVE SOME WHEEZES IN THE LUNGS.
[2020-08-28 04:27] LABS: BASOPHILS ABSOLUTE AUTO 0.02 K/mm3 (0.00-0.23); BASOPHILS PERCENT AUTO 0 % (0-2); EOSINOPHILS ABSOLUTE AUTO 0.08 K/mm3 (0.00-0.68); EOSINOPHILS PERCENT AUTO 1 % (0-6); Hematocrit 36.1 % (37.0-53.0); Hemoglobin 11.4 g/dL (13.5-17.5); IMMATURE GRAN ABSOLUTE AUTO 0.01 K/mm3 (0.00-0.10); IMMATURE GRAN PERCENT AUTO 0 % (0-1); LYMPHOCYTES ABSOLUTE AUTO 1.41 K/mm3 (0.84-5.20); LYMPHOCYTES PERCENT AUTO 23 % (21-46); MONOCYTES ABSOLUTE AUTO 0.45 K/mm3 (0.16-1.47); MONOCYTES PERCENT AUTO 7 % (4-13); Mean Corpuscular HGB 31.5 pg (26.0-34.0); Mean Corpuscular HGB Conc 31.6 g/dL (31.5-36.5); Mean Corpuscular Volume 100 fL (80-100); Mean Platelet Volume 10.1 fL (9.1-12.4); NEUTROPHILS PERCENT AUTO 69 % (41-73); Platelet Count 118 K/mm3 (150-400); RDW Coefficient Variation 13.5 % (11.7-14.2); RDW Standard Deviation 49.9 fL (35.1-46.3); Red Blood Cell Count 3.62 M/mm3 (4.30-5.90); White Blood Cell Count 6.27 K/mm3 (4.00-11.30)
[2020-08-28 04:47] LABS: Alanine Aminotransfer (ALT/SGP 19 U/L (12-78); Albumin, Blood 3.1 g/dL (3.4-5.0); Alk Phos 86 U/L (50-136); Anion Gap 5 mmol/L (6-16); Aspartate Aminotrans (AST/SGOT 10 U/L (12-37); Bilirubin, Total 0.5 mg/dL (0.1-1.0); Blood Urea Nitrogen 13 mg/dL (8-24); Bun/Creatinine Ratio 22.2 (12.0-20.0); CO2, Blood 27 mmol/L (21-32); Calcium, Blood 8.6 mg/dL (8.5-10.1); Chloride, Blood 114 mmol/L (98-108); Creatinine, Blood 0.59 mg/dL (0.60-1.20); Glomerular Filtration Rate >60 (60-); Glucose, Blood 99 mg/dL (70-99); Potassium, Blood 3.8 mmol/L (3.5-5.5); Sodium, Blood 146 mmol/L (136-145); Total Protein, Blood 6.1 g/dL (6.4-8.2)
--- NOTE | 2020-08-28 11:22 | NUR ---
PT TO IMAGING.
[2020-08-28 11:37] LABS: Adenovirus F 40/41 Not Detected (NOT DETECT); Astrovirus Not Detected (NOT DETECT); Campylobacter Sp Not Detected (NOT DETECT); Cryptosporidium Not Detected (NOT DETECT); Cyclospora Cayetanensis Not Detected (NOT DETECT); E. Coli O157 Not Detected (NOT DETECT); Entamoeba Histolytica Not Detected (NOT DETECT); Enteroaggregative E. coli-EAEC Not Detected (NOT DETECT); Enteropathogenic E. coli-EPEC Not Detected (NOT DETECT); Enterotoxigenic E. coli-ETEC Not Detected (NOT DETECT); Giardia Lamblia Not Detected (NOT DETECT); Plesiomonas Shigelloides Not Detected (NOT DETECT); Salmonella Sp Not Detected (NOT DETECT); Shiga Toxin-prod E. coli-STEC Not Detected (NOT DETECT); Shigella/Enteroin E. coli-EIEC Not Detected (NOT DETECT); Vibrio Cholerae Not Detected (NOT DETECT); Vibrio Sp Not Detected (NOT DETECT); Yersinia Enterocolitica Not Detected (NOT DETECT)
[2020-08-28 11:38] LABS: Norovirus GI/GII Not Detected (NOT DETECT); Rotavirus A Not Detected (NOT DETECT); Sapovirus Not Detected (NOT DETECT)
[2020-08-28] MEDS ORDERED: Oxybutynin Chlo15 MG PO (15:50)
--- NOTE | 2020-08-28 17:03 | NUR ---
SHIFT SUMMARY- PT A/OX3. PT MEDICATED X1 WITH PO DILAUDID FOR RIGHT HIP AND BACK PAIN. PT UP TO CHAIR/ BATHROOM WITH 1 ASSIST AND FWW. PT REPORTS DIZZINESS MAINLY WHILE LYING IN BED AND MOVING FROM LEFT TO RIGHT BUT REPORTS IT HAS IMPROVED. LS DIMINISHED WITH EXP WHEEZES, PT USING NEBULIZER. ON 2L N/C T/O THE DAY. SOB WITH EXERTION BUT RECOVERS QUICKLY. TELE SR AT 81. PT HAS HAD DIARRHEA T/O THE DAY, GI PANEL SENT AND STARTED ON IMMODIUM. NO OTHER ACUTE CHANGES THIS SHIFT.
--- NOTE | 2020-08-29 04:26 | NUR ---
SHIFT SUMMARY ASSUMED CARE OF PT AT 1900. PT IS A/OX4. HEART SOUNDS REGULAR, TELE SHOWS PACED @ 67. LUNG SOUNDS ARE VERY TIGHT WITH CRACKLES AT THE BASES. RT EXPRESSED CONCERN THAT PT MAY NEED A DOSE OF LASIX IF HIS SOB CONTINUES. I&O INACCURATE DUE TO PT BEING INCONTIENT. PT REFEUSED HIS CPAP. PT REQUESTED TO GET IN HIS CHAIR THIS AM. PT PER AREA IS REDDENED. PT CALLED CONSTANTLY T/O THE NIGHT FOR LITTLE THINGS. PT C/O HEADACHE BUT WHEN MEDICATION WAS FINALLY ORDERED, PT WAS ALSLEEP AND SLEPT MOST OF THE MORNING UNTIL LAB CAME. CALL LIGHT IN REACH, BED IN LOWEST POSITON.
[2020-08-29 04:48] LABS: BASOPHILS ABSOLUTE AUTO 0.03 K/mm3 (0.00-0.23); BASOPHILS PERCENT AUTO 0 % (0-2); EOSINOPHILS ABSOLUTE AUTO 0.09 K/mm3 (0.00-0.68); EOSINOPHILS PERCENT AUTO 1 % (0-6); Hematocrit 36.9 % (37.0-53.0); Hemoglobin 11.8 g/dL (13.5-17.5); IMMATURE GRAN ABSOLUTE AUTO 0.02 K/mm3 (0.00-0.10); IMMATURE GRAN PERCENT AUTO 0 % (0-1); LYMPHOCYTES ABSOLUTE AUTO 1.08 K/mm3 (0.84-5.20); LYMPHOCYTES PERCENT AUTO 16 % (21-46); MONOCYTES ABSOLUTE AUTO 0.52 K/mm3 (0.16-1.47); MONOCYTES PERCENT AUTO 8 % (4-13); Mean Corpuscular HGB 32.3 pg (26.0-34.0); Mean Corpuscular Volume 101 fL (80-100); Mean Platelet Volume 10.7 fL (9.1-12.4); NEUTROPHILS ABSOLUTE AUTO 5.11 K/mm3 (1.96-9.15); NEUTROPHILS PERCENT AUTO 75 % (41-73); Platelet Count 119 K/mm3 (150-400); RDW Coefficient Variation 13.9 % (11.7-14.2); RDW Standard Deviation 51.5 fL (35.1-46.3); Red Blood Cell Count 3.65 M/mm3 (4.30-5.90); White Blood Cell Count 6.85 K/mm3 (4.00-11.30)
[2020-08-29 05:05] LABS: Anion Gap 6 mmol/L (6-16); Blood Urea Nitrogen 13 mg/dL (8-24); Bun/Creatinine Ratio 22.6 (12.0-20.0); CO2, Blood 27 mmol/L (21-32); Calcium, Blood 8.9 mg/dL (8.5-10.1); Chloride, Blood 113 mmol/L (98-108); Creatinine, Blood 0.58 mg/dL (0.60-1.20); Glomerular Filtration Rate >60 (60-); Glucose, Blood 100 mg/dL (70-99); Potassium, Blood 3.7 mmol/L (3.5-5.5); Sodium, Blood 146 mmol/L (136-145)
[2020-08-29] MEDS ORDERED: AIRDUO RESPICL1 EAC4 INH (13:16)
[2020-08-29] MEDS ORDERED: DELTASONE20 MG PO (13:16)
[2020-08-29] MEDS ORDERED: MECL25 PO (14:25)
--- NOTE | 2020-08-29 14:29 | NUR ---
SPOKE WITH DR HOLLINGSWORTH REGARDING MECLIZINE ORDER UPON DISCHARGE, PT HAS BEEN TAKING IT HERE. PER DR HOLLINGSWORTH GO AHEAD AND ORDER MECLIZINE 25MG PO Q12H PRN DIZZINESS #10. THIS WAS CALLED INTO [facility]
--- NOTE | 2020-08-29 15:00 | NUR ---
DISCHARGE SUMMARY- DISCHARGE INSTRUCTIONS REVIEWED WITH PT. IV DC'D INTACT. RX FAXED TO PHARMACY AND MECLIZINE CALLED IN. PT REPORTS MINIMAL DIZZINESS TODAY. PT ABLE TO WORK WITH THERAPY WITH STAIRS PRIOR TO DISCHARGE. PT AWAITING RIDE HOME AT THIS TIME.
--- NOTE | 2020-08-29 15:29 | NUR ---
PT DISCHARGED HOME WITH SPOUSE, ESCORTED OUT VIA W/C AT 1528.
== END 2020-08-29 15:31 | disposition home health service (06) ==
LOC: ER 16:25 → MEDS 16:26
PROVIDERS: Emergency Medicine; Family Medicine; Physician Assistant; ADMIT Internal Medicine
DX: R42 Dizziness and giddiness (principal); R53.1 Weakness; R41.0 Disorientation, unspecified; E86.0 Dehydration; R19.7 Diarrhea, unspecified; J44.9 Chronic obstructive pulmonary disease, unspecified; K21.9 Gastro-esophageal reflux disease without esophagitis; I25.2 Old myocardial infarction; I73.9 Peripheral vascular disease, unspecified; N39.0 Urinary tract infection, site not specified; I11.0 Hypertensive heart disease with heart failure; I50.42 Chronic combined systolic (congestive) and diastolic (congestive) heart failure; G47.30 Sleep apnea, unspecified; N40.0 Benign prostatic hyperplasia without lower urinary tract symptoms; F32.9 Major depressive disorder, single episode, unspecified; Z95.810 Presence of automatic (implantable) cardiac defibrillator; Z95.1 Presence of aortocoronary bypass graft; Z20.822 Contact with and (suspected) exposure to COVID-19; Z79.82 Long term (current) use of aspirin; Z79.02 Long term (current) use of antithrombotics/antiplatelets; Z99.81 Dependence on supplemental oxygen; Z91.81 History of falling
CPT/HCPCS: 0097U; 0241U; 36415; 70450; 70496; 70498; 80048; 80053; 81001; 83880; 85025; 87086; 93005; 93010; 94640; 94660; 94760; 94762; 96360; 96372; 97110; 97116; 97162; 97166; 97530; 97535; 99285-25; A9270; G0378; J1650; J7030; J7512; Q9967

== ENCOUNTER 2020-08-31 23:52 | Inpatient (IN) | payer MEDICARE, OTHER ==
[~2020-08-31] VITALS: Ht 182.9 cm; Wt 108.9 kg
[~2020-08-31 23:52] MED LIST changes: +AIRDUO RESPICL1 EAC4 INH; +DELTASONE20 MG PO; +MECL25 PO; +Oxybutynin Chlo15 MG PO
[2020-09-01 00:13] LABS: PCO2 Arterial 46.2 mmHg (35-45); PO2 Arterial 97.4 mmHg (80-100); pH Blood Arterial 7.38 (7.35-7.45)
[2020-09-01 00:14] LABS: BASOPHILS ABSOLUTE AUTO 0.02 K/mm3 (0.00-0.23); BASOPHILS PERCENT AUTO 0 % (0-2); EOSINOPHILS ABSOLUTE AUTO 0.01 K/mm3 (0.00-0.68); EOSINOPHILS PERCENT AUTO 0 % (0-6); Hematocrit 36.1 % (37.0-53.0); Hemoglobin 11.1 g/dL (13.5-17.5); IMMATURE GRAN ABSOLUTE AUTO 0.02 K/mm3 (0.00-0.10); IMMATURE GRAN PERCENT AUTO 0 % (0-1); LYMPHOCYTES ABSOLUTE AUTO 1.47 K/mm3 (0.84-5.20); LYMPHOCYTES PERCENT AUTO 21 % (21-46); MONOCYTES ABSOLUTE AUTO 0.51 K/mm3 (0.16-1.47); MONOCYTES PERCENT AUTO 7 % (4-13); Mean Corpuscular HGB 31.4 pg (26.0-34.0); Mean Corpuscular HGB Conc 30.7 g/dL (31.5-36.5); Mean Corpuscular Volume 102 fL (80-100); Mean Platelet Volume 10.7 fL (9.1-12.4); NEUTROPHILS ABSOLUTE AUTO 4.88 K/mm3 (1.96-9.15); NEUTROPHILS PERCENT AUTO 71 % (41-73); Platelet Count 147 K/mm3 (150-400); RDW Coefficient Variation 13.8 % (11.7-14.2); RDW Standard Deviation 51.8 fL (35.1-46.3); Red Blood Cell Count 3.53 M/mm3 (4.30-5.90); White Blood Cell Count 6.91 K/mm3 (4.00-11.30)
[2020-09-01 00:34] LABS: Troponin I <0.015 ng/mL (0.000-0.040)
[2020-09-01 00:35] LABS: Alanine Aminotransfer (ALT/SGP 27 U/L (12-78); Albumin, Blood 3.2 g/dL (3.4-5.0); Alk Phos 84 U/L (50-136); Anion Gap 2 mmol/L (6-16); Aspartate Aminotrans (AST/SGOT 15 U/L (12-37); Bilirubin, Total 0.3 mg/dL (0.1-1.0); Blood Urea Nitrogen 15 mg/dL (8-24); Bun/Creatinine Ratio 20.1 (12.0-20.0); CO2, Blood 32 mmol/L (21-32); Calcium, Blood 8.8 mg/dL (8.5-10.1); Chloride, Blood 112 mmol/L (98-108); Creatinine, Blood 0.75 mg/dL (0.60-1.20); Globulin, Blood 3.3 g/dL (2.2-4.0); Glomerular Filtration Rate >60 (60-); Glucose, Blood 96 mg/dL (70-99); Potassium, Blood 3.7 mmol/L (3.5-5.5); Sodium, Blood 146 mmol/L (136-145); Total Protein, Blood 6.5 g/dL (6.4-8.2)
[2020-09-01] MEDS ORDERED: LISI5 PO (01:07)
[2020-09-01] MEDS ORDERED: OXYB5 PO (01:08)
--- NOTE | 2020-09-01 03:15 | NUR ---
RECEIVED REPORT FROM ELIZABETHED RN. PT TRANSPORTED TO MEDICAL FLOOR VIA GURNEY, STAND-PIVOTED TRANSFERRED TO HOSPITAL BED. TOLERATED WELL. VS OBTAINED, ORIENTED TO ROOM/UNIT. IN NO ACUTE DISTRESS. CALL LIGHT, POSSESSIONS IN REACH, WILL CONTINUE TO MONITOR.
[2020-09-01 04:44] LABS: BASOPHILS ABSOLUTE AUTO 0.02 K/mm3 (0.00-0.23); BASOPHILS PERCENT AUTO 0 % (0-2); EOSINOPHILS PERCENT AUTO 0 % (0-6); Hematocrit 38.6 % (37.0-53.0); Hemoglobin 11.9 g/dL (13.5-17.5); IMMATURE GRAN ABSOLUTE AUTO 0.04 K/mm3 (0.00-0.10); IMMATURE GRAN PERCENT AUTO 0 % (0-1); LYMPHOCYTES ABSOLUTE AUTO 0.44 K/mm3 (0.84-5.20); LYMPHOCYTES PERCENT AUTO 4 % (21-46); MONOCYTES ABSOLUTE AUTO 0.17 K/mm3 (0.16-1.47); MONOCYTES PERCENT AUTO 2 % (4-13); Mean Corpuscular HGB 31.2 pg (26.0-34.0); Mean Corpuscular HGB Conc 30.8 g/dL (31.5-36.5); Mean Corpuscular Volume 101 fL (80-100); Mean Platelet Volume 10.8 fL (9.1-12.4); NEUTROPHILS ABSOLUTE AUTO 9.72 K/mm3 (1.96-9.15); NEUTROPHILS PERCENT AUTO 94 % (41-73); Platelet Count 160 K/mm3 (150-400); RDW Coefficient Variation 13.8 % (11.7-14.2); RDW Standard Deviation 50.9 fL (35.1-46.3); Red Blood Cell Count 3.82 M/mm3 (4.30-5.90); White Blood Cell Count 10.39 K/mm3 (4.00-11.30)
[2020-09-01 05:07] LABS: Alanine Aminotransfer (ALT/SGP 29 U/L (12-78); Albumin, Blood 3.6 g/dL (3.4-5.0); Alk Phos 95 U/L (50-136); Anion Gap 8 mmol/L (6-16); Aspartate Aminotrans (AST/SGOT 15 U/L (12-37); Bilirubin, Total 0.5 mg/dL (0.1-1.0); Blood Urea Nitrogen 15 mg/dL (8-24); Bun/Creatinine Ratio 24.1 (12.0-20.0); CO2, Blood 26 mmol/L (21-32); Calcium, Blood 9.1 mg/dL (8.5-10.1); Chloride, Blood 110 mmol/L (98-108); Creatinine, Blood 0.62 mg/dL (0.60-1.20); Globulin, Blood 3.7 g/dL (2.2-4.0); Glomerular Filtration Rate >60 (60-); Glucose, Blood 140 mg/dL (70-99); Potassium, Blood 3.5 mmol/L (3.5-5.5); Sodium, Blood 144 mmol/L (136-145); Total Protein, Blood 7.3 g/dL (6.4-8.2)
--- NOTE | 2020-09-01 05:55 | NUR ---
QA INTERN SUMMARY PT HAS HAD NO ACUTE CHANGES IN CONDITION SINCE ARRIVAL TO MEDICAL FLOOR. VS REVIEWED, WNL. PT HAS BEEN RESTING QUIETLY. O2 SATS STABLE ON 3L, WHICH IS BASELINE FOR PT. PT NPO. CONDOM CATH PLACED TO MONITOR I&Os, DRAINING TO GRAVITY. NO ACUTE DISTRESS NOTED. PT DENIES PAIN OR NEEDS AT THIS TIME. CALL LIGHT AND POSSESSIONS IN REACH. WILL REPORT OFF TO ONCOMING RN.
[2020-09-01 09:07] LABS: CPK Creatine Kinase 54 U/L (39-308)
[2020-09-01 17:18] LABS: CPK Creatine Kinase 55 U/L (39-308)
--- NOTE | 2020-09-01 17:31 | NUR ---
PT RESING IN BED EATING DINNER, O/OX4. PT MAKES NO COMPLAINTS OF SOB OR CHEST PAIN AT THIS TIME. PT IS ON A CARDIAC DIET, HOWEVER HIS DID BRING HIM A FOURTH MEAL ([place] MEAL) THIS SHIFT. PT C/O CONSIPATION AND PRN DOCUASATE WAS ORDERED. NO BOWEL MOVEMENT THIS SHIFT. PT HAS A HARD TIME STANDING FOR MORE THAN A FEW SECONDS AND REMAINS A 2 PERSON ASSIST FOR TRANSFER TO THE BEDSIDE CAMODE. IV SALINE LOCKED AND WNL. STAFF WILL CONT. TO MONITOR.
--- NOTE | 2020-09-01 19:10 | NUR ---
ASSUMED CARE RECEIVED REPORT FROM JASMINA SORTO. PT RESTING IN BED, IN NO ACUTE DISTRESS. RT ADMINISTERING TX. PT REQUESTING SLEEPING MEDICATION, WILL NOTIFY PROVIDER. NO OTHER ACUTE NEEDS ASSESSED AT THIS TIME. CALL LIGHT, POSSESSIONS IN REACH. CONTINUE TO MONITOR.
--- NOTE | 2020-09-01 20:43 | NUR ---
SPOKE TO RYAN MARK REGARDING PT'S REQUEST FOR SLEEPING MEDICATION. ORDERS RECEIVED. CONTINUE TO MONITOR.
--- NOTE | 2020-09-02 04:11 | NUR ---
FORMULA CLERK SUMMARY PT ASLEEP, IN NO ACUTE DISTRESS. VS REVIEWED,WNL; O2 SATS STABLE ON 3L/NC. PT REPORTS BREATHING IS IMPROVED AT REST. NO ACUTE CHANGES TO REPORT THIS SHIFT. HAS BEEN SLEEPING THROUGH THE NIGHT. DENIES PAIN OR NEEDS AT THIS TIME. CALL LIGHT, POSSESSIONS IN REACH, BED IN LOW POSITION. WILL REPORT OFF TO ONCOMING RN.
--- NOTE | 2020-09-02 04:23 | NUR ---
BUILD AND RELEASE MANAGER SUMMARY PT RESTING, IN NO ACUTE DISTRESS. VS REVIEWED, WNL. O2 SATS STABLE ON 5L/NC, UP FROM 3L/NC AT BASELINE. DYSPNEIC WITH ACTIVITY. 2 PERSON TRANSFER TO [facility] [place]. PT WEAK, TREMULOUS. TOLERATES FAIRLY. WORE CPAP FOR PART OF THE NIGHT, TRANSITIONED TO NC. PT APPEARS COMFORTABLE. NO ACUTE NEEDS ASSESSED AT THIS TIME. DENIES PAIN. CALL LIGHT, POSSESSIONS IN REACH, BED IN LOW POSITION WITH ALARMS ON. WILL REPORT OFF TO ONCOMING RN.
[2020-09-02 04:34] LABS: BASOPHILS ABSOLUTE AUTO 0.01 K/mm3 (0.00-0.23); BASOPHILS PERCENT AUTO 0 % (0-2); EOSINOPHILS ABSOLUTE AUTO 0.01 K/mm3 (0.00-0.68); EOSINOPHILS PERCENT AUTO 0 % (0-6); Hematocrit 33.8 % (37.0-53.0); Hemoglobin 10.7 g/dL (13.5-17.5); IMMATURE GRAN ABSOLUTE AUTO 0.02 K/mm3 (0.00-0.10); IMMATURE GRAN PERCENT AUTO 0 % (0-1); LYMPHOCYTES ABSOLUTE AUTO 1.44 K/mm3 (0.84-5.20); LYMPHOCYTES PERCENT AUTO 20 % (21-46); MONOCYTES ABSOLUTE AUTO 0.63 K/mm3 (0.16-1.47); MONOCYTES PERCENT AUTO 9 % (4-13); Mean Corpuscular HGB 31.7 pg (26.0-34.0); Mean Corpuscular HGB Conc 31.7 g/dL (31.5-36.5); Mean Corpuscular Volume 100 fL (80-100); Mean Platelet Volume 10.5 fL (9.1-12.4); NEUTROPHILS ABSOLUTE AUTO 5.09 K/mm3 (1.96-9.15); NEUTROPHILS PERCENT AUTO 71 % (41-73); Platelet Count 148 K/mm3 (150-400); RDW Coefficient Variation 13.8 % (11.7-14.2); RDW Standard Deviation 51.2 fL (35.1-46.3); Red Blood Cell Count 3.38 M/mm3 (4.30-5.90)
[2020-09-02 04:50] LABS: Albumin, Blood 3.1 g/dL (3.4-5.0); Anion Gap 5 mmol/L (6-16); Blood Urea Nitrogen 19 mg/dL (8-24); Bun/Creatinine Ratio 28.2 (12.0-20.0); CO2, Blood 33 mmol/L (21-32); Calcium, Blood 8.8 mg/dL (8.5-10.1); Chloride, Blood 107 mmol/L (98-108); Creatinine, Blood 0.67 mg/dL (0.60-1.20); Glomerular Filtration Rate >60 (60-); Glucose, Blood 100 mg/dL (70-99); Magnesium, Blood 2.1 mg/dL (1.6-2.4); Phosphorus, Blood 3.1 mg/dL (2.5-4.9); Potassium, Blood 3.5 mmol/L (3.5-5.5); Sodium, Blood 145 mmol/L (136-145)
--- NOTE | 2020-09-02 17:04 | NUR ---
PATIENT A/OX4, UP WITH 1 ASSIST AND GAIT BELT TO CHAIR. CONDOM CATH IN PLACE, LARGE AMOUNT OF U/O THIS SHIFT. 3LO2 TO MAINTAIN SATS, WHICH IS BASELINE FOR HIM. HOME CPAP AT NOC. 20G IV TO L AC WNL AND SL. SR ON TELE IN THE 70'S. NOT EXPERIENCES VERTIGO THIS SHIFT, MECLIZINE ORDERED PRN. NO NEW CONCERNS THIS SHIFT. WORKED WITH PT/OT TODAY.
--- NOTE | 2020-09-02 20:03 | NUR ---
CALL TO HOSPITALIST / PT REQUESTING MED FOR INSOMNIA NEW ORDER FROM [facility] FOR MELATONIN 5MG QHS PRN.
--- NOTE | 2020-09-03 05:43 | NUR ---
SHIFT SUMMARY: VSS. AFEB. 02 94-95% ON 3L VIA NC. PT DID NOT WEAR HIS HOME CPAP, STATING IT FITS POORLY. OFFERED PT HOSPITAL CPAP/MASK, PT DECLINED. SLEPT W/ HOB ELEVATED ABOUT 30 DEGREES. EXERTIONAL DYSPNEA WHEN ASSISTING W/ TURNING IN BED. RESPS REG, EVEN, NON-LABORED AT REST. DENIES CHESP PAIN. INCONTINENT OF URINE WHILE SLEEPING. SLEPT WELL. NO ACUTE OVERNIGHT EVENTS. WCTM.
--- NOTE | 2020-09-03 17:46 | NUR ---
SHIFT SUMMARY PT UP IN CHAIR SEVERAL TIMES TODAY. DENIES RESP DISTRESS. DISCUSSED MONITERING HIS FLUID INTAKE AND LIMITING TO 1500ML DAILY TO AID IN CHF EXACERBATIONS. IN TO VISIT THIS AFTERNOON. AMBULATED WITH P.T. DOES REPORT FEELING STRONGER TODAY.
--- NOTE | 2020-09-04 03:38 | NUR ---
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 After he had taken his PO Dilaudid and Melatonin,(early at his request) he became agitative and angry with [employer] because he hadn't fallen asleep by 2129, Request to hospitalist for stronger sleep medication and 10 mg Ambien given. Per hospitalist request, this RN explained to patient that it is inappropriate to speak to any caregivers or other hospital staff in the manner which he had. Patient did apologize, and later stated he was "just sleep deprived" and "didn't mean to be so verbally aggressive." No complaints of pain, sob or pressure since evening medication. 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
[2020-09-04 04:45] LABS: BASOPHILS ABSOLUTE AUTO 0.02 K/mm3 (0.00-0.23); BASOPHILS PERCENT AUTO 0 % (0-2); EOSINOPHILS PERCENT AUTO 1 % (0-6); Hematocrit 38.3 % (37.0-53.0); Hemoglobin 11.9 g/dL (13.5-17.5); IMMATURE GRAN ABSOLUTE AUTO 0.03 K/mm3 (0.00-0.10); IMMATURE GRAN PERCENT AUTO 0 % (0-1); LYMPHOCYTES ABSOLUTE AUTO 1.48 K/mm3 (0.84-5.20); LYMPHOCYTES PERCENT AUTO 21 % (21-46); MONOCYTES ABSOLUTE AUTO 0.51 K/mm3 (0.16-1.47); MONOCYTES PERCENT AUTO 7 % (4-13); Mean Corpuscular HGB 31.2 pg (26.0-34.0); Mean Corpuscular HGB Conc 31.1 g/dL (31.5-36.5); Mean Corpuscular Volume 101 fL (80-100); Mean Platelet Volume 10.2 fL (9.1-12.4); NEUTROPHILS ABSOLUTE AUTO 5.01 K/mm3 (1.96-9.15); NEUTROPHILS PERCENT AUTO 70 % (41-73); Platelet Count 163 K/mm3 (150-400); RDW Coefficient Variation 13.4 % (11.7-14.2); RDW Standard Deviation 49.9 fL (35.1-46.3); Red Blood Cell Count 3.81 M/mm3 (4.30-5.90); White Blood Cell Count 7.15 K/mm3 (4.00-11.30)
[2020-09-04 05:13] LABS: Albumin, Blood 3.1 g/dL (3.4-5.0); Anion Gap 4 mmol/L (6-16); Blood Urea Nitrogen 20 mg/dL (8-24); Bun/Creatinine Ratio 26.1 (12.0-20.0); CO2, Blood 35 mmol/L (21-32); Calcium, Blood 8.6 mg/dL (8.5-10.1); Chloride, Blood 104 mmol/L (98-108); Creatinine, Blood 0.77 mg/dL (0.60-1.20); Glomerular Filtration Rate >60 (60-); Glucose, Blood 103 mg/dL (70-99); Magnesium, Blood 2.2 mg/dL (1.6-2.4); Phosphorus, Blood 3.8 mg/dL (2.5-4.9); Potassium, Blood 3.7 mmol/L (3.5-5.5); Sodium, Blood 143 mmol/L (136-145); Thyroid Stimulating Hormone 0.359 uIU/mL (0.360-4.800)
[2020-09-04] MEDS ORDERED: ACET325 PO (13:56)
[2020-09-04] MEDS ORDERED: DOCU LIQUI50 MG/5 ML PO (13:58)
[2020-09-04] MEDS ORDERED: FURO20 PO (13:58)
[2020-09-04] MEDS ORDERED: LOPE2C PO (13:58)
[2020-09-04] MEDS ORDERED: MECL25 PO (13:59)
[2020-09-04] MEDS ORDERED: MELATONIN5 M1 PO (14:00)
[2020-09-04] MEDS ORDERED: ONDA4ODT MM (14:01)
[2020-09-04] MEDS ORDERED: POTA10T PO (14:02)
--- NOTE | 2020-09-04 15:49 | NUR ---
DISCHARGE INSTRUCTIONS COMPLETED AND DISCUSSED WITH PT EXPRESSING UNDERSTANDING. SCRIPTS FAXED TO PHARMACY OF CHOICE. AT BEDSIDE TO LISTEN TO INSTRUCTIONS. REMINDED PT OF CONVERSATION ABOUT MONITER FLUID INTAKE AND DISCUSSED WEIGHING HIMSELF EVERY MORNING. REPORTED BEING AWARE OF NEED TO WEIGH DAILY BUT PT GENERALLY WOULDN'T COOPERATE. TO CURB VIA W/C.
== END 2020-09-04 15:12 | disposition home health service (06) | DRG 293 ==
LOC: ER 23:52 → MEDS 09-01 01:57
PROVIDERS: Emergency Medicine; Family Medicine; ADMIT Internal Medicine
DX: I11.0 Hypertensive heart disease with heart failure (principal); I50.33 Acute on chronic diastolic (congestive) heart failure; G47.33 Obstructive sleep apnea (adult) (pediatric); R42 Dizziness and giddiness; J44.9 Chronic obstructive pulmonary disease, unspecified; I25.10 Atherosclerotic heart disease of native coronary artery without angina pectoris; I73.9 Peripheral vascular disease, unspecified; N40.0 Benign prostatic hyperplasia without lower urinary tract symptoms; F32.9 Major depressive disorder, single episode, unspecified; K21.9 Gastro-esophageal reflux disease without esophagitis; E66.01 Morbid (severe) obesity due to excess calories; Z68.32 Body mass index [BMI] 32.0-32.9, adult; Z87.891 Personal history of nicotine dependence; Z99.81 Dependence on supplemental oxygen; Z79.82 Long term (current) use of aspirin; Z79.02 Long term (current) use of antithrombotics/antiplatelets; I25.2 Old myocardial infarction; Z95.5 Presence of coronary angioplasty implant and graft
CPT/HCPCS: 36415; 36600; 71045; 80048; 80053; 80069; 82550; 82803; 83735; 83880; 84443; 84484; 85025; 93005; 93010; 94640; 94644; 94760; 94762; 96372; 96374; 97110; 97112; 97116; 97162; 97166; 97530; 97535; 99285-25; A9270; G0378; J1650; J1940; J2930; J7512

== ENCOUNTER 2020-09-29 23:59 | Emergency (ER) | payer MEDICARE, OTHER ==
[~2020-09-29] VITALS: Ht 182.9 cm; Wt 104.3 kg
[~2020-09-29 23:59] MED LIST changes: +ACET325 PO; +DOCU LIQUI50 MG/5 ML PO; +LOPE2C PO; +MELATONIN5 M1 PO; +ONDA4ODT MM; +OXYB5 PO; +POTA10T PO; -PRAZ2 PO; +PRAZOSIN HCL2 MG PO
[2020-09-30 01:20] LABS: BASOPHILS ABSOLUTE AUTO 0.04 K/mm3 (0.00-0.23); BASOPHILS PERCENT AUTO 1 % (0-2); EOSINOPHILS ABSOLUTE AUTO 0.08 K/mm3 (0.00-0.68); EOSINOPHILS PERCENT AUTO 1 % (0-6); Hematocrit 40.3 % (37.0-53.0); Hemoglobin 12.8 g/dL (13.5-17.5); IMMATURE GRAN ABSOLUTE AUTO 0.02 K/mm3 (0.00-0.10); IMMATURE GRAN PERCENT AUTO 0 % (0-1); LYMPHOCYTES ABSOLUTE AUTO 1.51 K/mm3 (0.84-5.20); LYMPHOCYTES PERCENT AUTO 22 % (21-46); MONOCYTES PERCENT AUTO 9 % (4-13); Mean Corpuscular HGB 31.7 pg (26.0-34.0); Mean Corpuscular HGB Conc 31.8 g/dL (31.5-36.5); Mean Corpuscular Volume 100 fL (80-100); Mean Platelet Volume 10.4 fL (9.1-12.4); NEUTROPHILS ABSOLUTE AUTO 4.62 K/mm3 (1.96-9.15); NEUTROPHILS PERCENT AUTO 67 % (41-73); Platelet Count 161 K/mm3 (150-400); RDW Coefficient Variation 13.1 % (11.7-14.2); RDW Standard Deviation 47.9 fL (35.1-46.3); Red Blood Cell Count 4.04 M/mm3 (4.30-5.90); White Blood Cell Count 6.87 K/mm3 (4.00-11.30)
[2020-09-30 01:32] LABS: Alanine Aminotransfer (ALT/SGP 22 U/L (12-78); Albumin, Blood 3.4 g/dL (3.4-5.0); Alk Phos 101 U/L (50-136); Anion Gap 4 mmol/L (6-16); Aspartate Aminotrans (AST/SGOT 13 U/L (12-37); Bilirubin, Total 0.4 mg/dL (0.1-1.0); Blood Urea Nitrogen 18 mg/dL (8-24); Bun/Creatinine Ratio 22.7 (12.0-20.0); CO2, Blood 27 mmol/L (21-32); Calcium, Blood 8.5 mg/dL (8.5-10.1); Chloride, Blood 112 mmol/L (98-108); Creatinine, Blood 0.79 mg/dL (0.60-1.20); Globulin, Blood 3.5 g/dL (2.2-4.0); Glomerular Filtration Rate >60 (60-); Glucose, Blood 107 mg/dL (70-99); Potassium, Blood 4.4 mmol/L (3.5-5.5); Sodium, Blood 143 mmol/L (136-145); Total Protein, Blood 6.9 g/dL (6.4-8.2)
[2020-09-30 02:23] LABS: Adenovirus F 40/41 Not Detected (NOT DETECT); Astrovirus Not Detected (NOT DETECT); Campylobacter Sp Not Detected (NOT DETECT); Cryptosporidium Not Detected (NOT DETECT); Cyclospora Cayetanensis Not Detected (NOT DETECT); E. Coli O157 Not Detected (NOT DETECT); Entamoeba Histolytica Not Detected (NOT DETECT); Enteroaggregative E. coli-EAEC Not Detected (NOT DETECT); Enteropathogenic E. coli-EPEC Not Detected (NOT DETECT); Enterotoxigenic E. coli-ETEC Not Detected (NOT DETECT); Giardia Lamblia Not Detected (NOT DETECT); Norovirus GI/GII Not Detected (NOT DETECT); Plesiomonas Shigelloides Not Detected (NOT DETECT); Rotavirus A Not Detected (NOT DETECT); Salmonella Sp Not Detected (NOT DETECT); Sapovirus Not Detected (NOT DETECT); Shiga Toxin-prod E. coli-STEC Not Detected (NOT DETECT); Shigella/Enteroin E. coli-EIEC Not Detected (NOT DETECT); Vibrio Cholerae Not Detected (NOT DETECT); Vibrio Sp Not Detected (NOT DETECT); Yersinia Enterocolitica Not Detected (NOT DETECT)
[2020-09-30] MEDS ORDERED: PROBIOTIC1 EA13 PO (03:39)
[2020-09-30] MEDS ORDERED: LOPE2C PO (03:39)
== END 2020-09-30 04:05 | disposition home or self-care (01) ==
LOC: ER 23:59
PROVIDERS: Emergency Medicine
DX: R19.7 Diarrhea, unspecified (principal); I10 Essential (primary) hypertension; J44.9 Chronic obstructive pulmonary disease, unspecified; I25.2 Old myocardial infarction; K21.9 Gastro-esophageal reflux disease without esophagitis; Z20.822 Contact with and (suspected) exposure to COVID-19; Z79.82 Long term (current) use of aspirin; Z79.899 Other long term (current) drug therapy
CPT/HCPCS: 0097U; 36415; 80053; 83690; 85025; 99284; J7030

== ENCOUNTER 2020-10-21 18:21 | Emergency (ER) | payer MEDICARE, OTHER ==
[~2020-10-21] VITALS: Ht 182.9 cm; Wt 104.3 kg
[~2020-10-21 18:21] MED LIST changes: +PRAZ2 PO; -PRAZOSIN HCL2 MG PO; +PROBIOTIC1 EA13 PO
[2020-10-21 19:05] LABS: BASOPHILS ABSOLUTE AUTO 0.02 K/mm3 (0.00-0.23); BASOPHILS PERCENT AUTO 0 % (0-2); EOSINOPHILS ABSOLUTE AUTO 0.03 K/mm3 (0.00-0.68); EOSINOPHILS PERCENT AUTO 0 % (0-6); Hematocrit 39.5 % (37.0-53.0); Hemoglobin 12.3 g/dL (13.5-17.5); IMMATURE GRAN ABSOLUTE AUTO 0.04 K/mm3 (0.00-0.10); IMMATURE GRAN PERCENT AUTO 0 % (0-1); LYMPHOCYTES ABSOLUTE AUTO 1.26 K/mm3 (0.84-5.20); LYMPHOCYTES PERCENT AUTO 12 % (21-46); MONOCYTES ABSOLUTE AUTO 0.59 K/mm3 (0.16-1.47); MONOCYTES PERCENT AUTO 6 % (4-13); Mean Corpuscular HGB 31.2 pg (26.0-34.0); Mean Corpuscular HGB Conc 31.1 g/dL (31.5-36.5); Mean Corpuscular Volume 100 fL (80-100); Mean Platelet Volume 10.5 fL (9.1-12.4); NEUTROPHILS ABSOLUTE AUTO 8.27 K/mm3 (1.96-9.15); NEUTROPHILS PERCENT AUTO 81 % (41-73); Platelet Count 165 K/mm3 (150-400); RDW Coefficient Variation 13.7 % (11.7-14.2); RDW Standard Deviation 50.1 fL (35.1-46.3); Red Blood Cell Count 3.94 M/mm3 (4.30-5.90); White Blood Cell Count 10.21 K/mm3 (4.00-11.30)
[2020-10-21 19:42] LABS: Alanine Aminotransfer (ALT/SGP 17 U/L (12-78); Albumin, Blood 3.6 g/dL (3.4-5.0); Alk Phos 93 U/L (50-136); Anion Gap 6 mmol/L (6-16); Aspartate Aminotrans (AST/SGOT 8 U/L (12-37); Bilirubin, Total 0.7 mg/dL (0.1-1.0); Blood Urea Nitrogen 26 mg/dL (8-24); Bun/Creatinine Ratio 28.4 (12.0-20.0); CO2, Blood 26 mmol/L (21-32); Calcium, Blood 9.1 mg/dL (8.5-10.1); Chloride, Blood 109 mmol/L (98-108); Creatinine, Blood 0.92 mg/dL (0.60-1.20); Globulin, Blood 3.6 g/dL (2.2-4.0); Glomerular Filtration Rate >60 (60-); Glucose, Blood 124 mg/dL (70-99); Potassium, Blood 4.6 mmol/L (3.5-5.5); Sodium, Blood 141 mmol/L (136-145); Total Protein, Blood 7.2 g/dL (6.4-8.2)
[2020-10-21] MEDS ORDERED: Zithromax250 MG PO (20:45)
== END 2020-10-21 21:15 | disposition home or self-care (01) ==
LOC: ER 18:21
PROVIDERS: Physician Assistant
DX: J20.9 Acute bronchitis, unspecified (principal); J44.9 Chronic obstructive pulmonary disease, unspecified; R04.2 Hemoptysis; K21.9 Gastro-esophageal reflux disease without esophagitis; I10 Essential (primary) hypertension; Z91.81 History of falling; Z79.01 Long term (current) use of anticoagulants; Z79.82 Long term (current) use of aspirin; Z79.02 Long term (current) use of antithrombotics/antiplatelets; Z79.899 Other long term (current) drug therapy
CPT/HCPCS: 36415; 70450; 71046; 80053; 85025; 93005; 93010; 99284-25; A9270

== ENCOUNTER 2020-11-08 22:47 | Inpatient (IN) | payer MEDICARE, OTHER ==
[~2020-11-08] VITALS: Ht 182.9 cm; Wt 109.6 kg
[~2020-11-08 22:47] MED LIST changes: +Zithromax250 MG PO
[2020-11-08 23:19] LABS: BASOPHILS ABSOLUTE AUTO 0.02 K/mm3 (0.00-0.23); BASOPHILS PERCENT AUTO 0 % (0-2); EOSINOPHILS ABSOLUTE AUTO 0.06 K/mm3 (0.00-0.68); EOSINOPHILS PERCENT AUTO 1 % (0-6); Hematocrit 38.5 % (37.0-53.0); Hemoglobin 11.8 g/dL (13.5-17.5); IMMATURE GRAN ABSOLUTE AUTO 0.03 K/mm3 (0.00-0.10); IMMATURE GRAN PERCENT AUTO 0 % (0-1); LYMPHOCYTES ABSOLUTE AUTO 1.11 K/mm3 (0.84-5.20); LYMPHOCYTES PERCENT AUTO 15 % (21-46); MONOCYTES PERCENT AUTO 7 % (4-13); Mean Corpuscular HGB Conc 30.6 g/dL (31.5-36.5); Mean Corpuscular Volume 101 fL (80-100); Mean Platelet Volume 10.4 fL (9.1-12.4); NEUTROPHILS ABSOLUTE AUTO 5.92 K/mm3 (1.96-9.15); NEUTROPHILS PERCENT AUTO 78 % (41-73); Platelet Count 135 K/mm3 (150-400); RDW Coefficient Variation 14.1 % (11.7-14.2); RDW Standard Deviation 52.6 fL (35.1-46.3); Red Blood Cell Count 3.81 M/mm3 (4.30-5.90); White Blood Cell Count 7.64 K/mm3 (4.00-11.30)
[2020-11-08 23:37] LABS: Base Excess Venous 3.4 mmol/L; PO2 Venous 47.4 mmHg (38-42); pH Blood Venous 7.31 (7.34-7.37)
[2020-11-08] MEDS ORDERED: CARBLEV25 PO (23:38)
[2020-11-08] MEDS ORDERED: MYRBETRIQ50 MG PO (23:40)
[2020-11-08 23:42] LABS: Alanine Aminotransfer (ALT/SGP 22 U/L (12-78); Albumin, Blood 3.4 g/dL (3.4-5.0); Alk Phos 93 U/L (50-136); Anion Gap 3 mmol/L (6-16); Aspartate Aminotrans (AST/SGOT 6 U/L (12-37); Bilirubin, Total 0.3 mg/dL (0.1-1.0); Blood Urea Nitrogen 17 mg/dL (8-24); Bun/Creatinine Ratio 23.9 (12.0-20.0); CO2, Blood 30 mmol/L (21-32); Calcium, Blood 8.6 mg/dL (8.5-10.1); Chloride, Blood 111 mmol/L (98-108); Creatinine, Blood 0.71 mg/dL (0.60-1.20); Globulin, Blood 3.3 g/dL (2.2-4.0); Glomerular Filtration Rate >60 (60-); Glucose, Blood 122 mg/dL (70-99); Potassium, Blood 3.9 mmol/L (3.5-5.5); Sodium, Blood 144 mmol/L (136-145); Total Protein, Blood 6.7 g/dL (6.4-8.2); Troponin I 0.017 ng/mL (0.000-0.040)
--- NOTE | 2020-11-09 06:09 | NUR ---
ADMIT NOTE AND SHIFT SUMMARY PT ARRIVED TO PCU FROM ED VIA ED STRETCHER AT APPROX 0130. PT WAS SLID BY 4 STAFF FROM ED STRETCHER TO PCU BED. PT A&OX3, ANSWERS QUESTIONS APPROPRIATELY, FOLLOWS COMMANDS, BUT A POOR HISTORIAN. PT STATES HANDLES HIS INFO AND SHE WILL BRING IN MEDICATION LIST TO UPDATE HIS MEDICATION RECORD. SP02>94% ON BIPAP, 30% FI02. PT TACHYPENIC, SOME ACCESSORY MUSCLE USE. TELEMETRY READS SR, HR 70'S. PT INCONTINENT OF URINE X4 DURING ADMIT. CONDOM CATHETER PLACED. NOW DRAINING CLEAR YELLOW URINE TO GRAVITY. PT WORE BIPAP T/O NIGHT, SLEPT. PT TRANSITIONED TO 4L NC IN AM TO PERFORM ORAL CARE AND TAKE MORNING ORAL MEDICATION. SP02>92% WHILE ON 4L NC. PT NO LONGER TACHYPENIC. STATES HE CAN BREATHE "MUCH BETTER" BUT FEELS "EXHAUSTED". CALL LIGHT IN REACH. WILL GIVE REPORT TO ONCOMING NURSE.
[2020-11-09 06:21] LABS: Anion Gap 5 mmol/L (6-16); Blood Urea Nitrogen 14 mg/dL (8-24); Bun/Creatinine Ratio 21.6 (12.0-20.0); CO2, Blood 28 mmol/L (21-32); Calcium, Blood 8.9 mg/dL (8.5-10.1); Chloride, Blood 107 mmol/L (98-108); Creatinine, Blood 0.65 mg/dL (0.60-1.20); Glomerular Filtration Rate >60 (60-); Glucose, Blood 186 mg/dL (70-99); Potassium, Blood 3.9 mmol/L (3.5-5.5); Sodium, Blood 140 mmol/L (136-145)
--- NOTE | 2020-11-09 17:28 | NUR ---
SHIFT SUMMARY PATIENT IS USING URINAL/ATTENDS. UNABLE TO KEEP CONDOM CATH IN PLACE. STOOL SPECIMEN SENT FOR C-DIFF DUE TO MANY LOOSE STOOLS. MED RECONCILIATION IS NOT COMPLETED, VISITED BUT DID NOT HAVE A MED LIST WITH HER. PATIENT HAD A 9 BEAT RUN OF V-TACH AT 0836. ASYMPTOMATIC. SPO2 REMAINS ABOVE 92% WHILE EATING AND AMBULATING AT 4L NC. HE REMAINS A&O X 3. HE WAS UP IN HIS RECLINER FOR BREAKFAST, AND STOOD TO USE THE COMMODE THROUGH THE DAY.
[2020-11-09 20:04] LABS: C DIFFICILE DNA NEGATIVE (Negative)
--- NOTE | 2020-11-10 00:37 | NUR ---
PT HAS BEEN OUT OF BED TO RECLINER, AND NOW BACK TO BED. HE IS A MAXIMAL ASSIST WITH TWO STAFF DUE TO GENERALIZED WEAKNESS IN ALL EXTREMITIES AND BASELINE TREMORS. PRESENTLY PT IS SLEEPING WITH C-PAP, AND CONTINUOUS PULSE OXIMETRY, SATING ABOVE 92% ON 4LPM. HE IS CONNECTED TO TELEMETRY - SINUS RHYTHM WITH A BUNDLE BRANCH BLOCK, HR IN THE 60'S TO 70'S. EARLIER TODAY LOOSE STOOLS WERE A CONCERN, BUT PT HAS HAD NO LOOSE STOOLS YET DURING SHIFT. PT SLEEPING, CALL LIGHT WITHIN REACH. RN WILL CONTINUE TO MONITOR.
[2020-11-10 03:56] LABS: Hematocrit 35.2 % (37.0-53.0); Hemoglobin 11.2 g/dL (13.5-17.5); Mean Corpuscular HGB 31.3 pg (26.0-34.0); Mean Corpuscular HGB Conc 31.8 g/dL (31.5-36.5); Mean Corpuscular Volume 98 fL (80-100); Mean Platelet Volume 10.9 fL (9.1-12.4); Platelet Count 143 K/mm3 (150-400); RDW Coefficient Variation 14.2 % (11.7-14.2); RDW Standard Deviation 51.7 fL (35.1-46.3); Red Blood Cell Count 3.58 M/mm3 (4.30-5.90)
--- NOTE | 2020-11-10 04:00 | NUR ---
AT 0330, LIQUEFIED NATURAL GAS PLANT OPERATOR REPORTED TO NURSE THAT THERE ARE TWO AREAS OF REDDENED SKIN IN PT'S GROIN AREA. RN ASSESSED THE AREAS, NOTED RED AREA WITHOUT DRAINAGE, BLISTERING OR OPEN SKIN. CHELLE CARE WAS COMPLETED, AND MOSITURE BARRIER CREAM APPLIED. PHOTOS TAKEN TO UPDATE PT'S CHART FOR DOCUMENTATION. RN WILL REPORT TO THE NEXT DAY SHIFT, WILL CONTINUE TO MONITOR.
[2020-11-10 04:16] LABS: Anion Gap 3 mmol/L (6-16); Blood Urea Nitrogen 20 mg/dL (8-24); Bun/Creatinine Ratio 25.5 (12.0-20.0); CO2, Blood 31 mmol/L (21-32); Calcium, Blood 8.7 mg/dL (8.5-10.1); Chloride, Blood 105 mmol/L (98-108); Creatinine, Blood 0.78 mg/dL (0.60-1.20); Glomerular Filtration Rate >60 (60-); Glucose, Blood 111 mg/dL (70-99); Potassium, Blood 3.5 mmol/L (3.5-5.5); Sodium, Blood 139 mmol/L (136-145)
--- NOTE | 2020-11-10 05:12 | NUR ---
SHIFT SUMMARY PT IS A & O X3, HE CAN BE FORGETFUL AT TIMES AND MAY REQUIRE REPEATED EXPLANATIONS. VSS. SLEPT PART OF THE NIGHT ON C-PAP, AND THEN WAS UP IN A RECLINER ON 4L O2 VIA NC. LUNG SOUNDS ARE DIMINISHED IN THE LOWER LOBES BILAT. TELEMETRY MONITORED AT SINUS WITH A BUNDLE BRANCH BLOCK, IN THE 60'S TO 70'S. MAINTAINING O2 SATURATIONS ABOVE 92%. HE IS A 2 STAFF ASSIST TO THE RECLINER AND THE BSC. NO LOOSE STOOLS THIS SHIFT, WHICH WAS A CONCERN DURING DAY SHIFT YESTERDAY. C-DIFF NEG. PT HAD A RESTLESS NIGHT, HE C/O BACK PAIN 12/21 LOCATED IN THE MID-SCAPULAR REGION AND HIS RIGHT HIP. RIGHT HIP PAIN IS CHRONIC. PT STATES THE BACK PAIN STARTED LAST WEEK AFTER A FALL. HE IS A POOR HISTORIAN, DUE TO FORGETFULNESS. PAIN TREATED WITH ORDERED MEDICATION AND RE-POSITIONING, SEE EMAR. MEDCIATION RECONCILIATION HAS NOT BEEN COMPLETED, PT'S USUALLY MANAGES HIS MEDICAL PAPERWORK AND SHE WAS UNABLE TO BRING IN A LIST OF HOME MEDICATIONS YESTERDAY.
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
--- NOTE | 2020-11-10 18:47 | NUR ---
PT ASSISTED WITH SHOWER; TRANSFER ASSIST X2 WITH WALKER AND GAIT BELT TO AMBULATE TO BATHROOM; DIURETIC RX ADMINISTERED PER MAR AND DEPENDS BRIEFS CHANGED 2/2 ENURESIS; PT SATTING >93% ON 4L HUMIDIFIED NC; PT REPORTS CONSTANT 7/10 BACK PAIN AND RECEIVED ANALGESIC RX 4X PER MAR; PT DENIES ADDITIONAL CONCERNS AT THIS TIME.
[2020-11-11 03:57] LABS: Anion Gap 2 mmol/L (6-16); Blood Urea Nitrogen 31 mg/dL (8-24); Bun/Creatinine Ratio 39.4 (12.0-20.0); CO2, Blood 33 mmol/L (21-32); Calcium, Blood 8.7 mg/dL (8.5-10.1); Chloride, Blood 104 mmol/L (98-108); Creatinine, Blood 0.79 mg/dL (0.60-1.20); Glomerular Filtration Rate >60 (60-); Glucose, Blood 103 mg/dL (70-99); Potassium, Blood 3.9 mmol/L (3.5-5.5); Sodium, Blood 139 mmol/L (136-145)
--- NOTE | 2020-11-11 06:01 | NUR ---
SHIFT SUMMARY PATIENT IS ALERT AND ORIENTED X4, FORGETFUL AT TIMES. INCONTINENT OF BOWEL AND BLADDER, Q2 HOURS TURNS AND BRIEF CHANGES NEEDED. 02 SATS >94% ON 4L VIA NC, SOB WITH ACTIVITY AND TAKES A COUPLE MINUTES TO RECOVER. PT REFUSING CPAP MOST THE NIGHT BUT WORE IS FOR COUPLE HOURS AFTER SOME CONVINCING. PATIENT UP IN RECLINER. VSS, NO ACUTE CHANGES. CALL LIGHT IN REACH
--- NOTE | 2020-11-11 10:48 | NUR ---
PT ALERT AND ORIENTED X4. POOR HISTORIAN. FLAT AND WITHDRAWN AT TIMES. ON TELE SHOWING SINUS WITH HR 70'S. DENIES CHEST PAIN/PRESSURE. ON 4 L O2 SATING 94%. SOB WITH MOVEMENT AND AT TIMES AUDIBLE WHEEZING. LUNGS SOUNDING CLEAR/DIMINISHED. LEFT WRIST IV FLUSHING WELL AND SALINE LOCKED. USING WALKER WITH 2 PERSON AND GAIT BELT FOR TRANSFERS. SOB WITH ACTIVITY. ABDOMINAL FOLDS RED. ATTENDS IN PLACE. INCONTINENT AT TIMES. ABLE TO GET UP TO C WITH ASISSTANCE. BOWEL TONES PRESENT. PERIPHARL PULSES PALPATED AND STRONG. VITAL SIGNS STABLE. WILL CONTINUE TO MONITOR. CALL LIGHT IN REACH. MEDICAL STATUS WITH TELE.
--- NOTE | 2020-11-11 12:10 | NUR ---
TRANSFER: REPORT GIVEN TO TRANSFER RN. WILL TRANSFER PT IN BED WITH BELONGINGS. NO ACUTE CHANGES. VITAL SIGNS STABLE.
--- NOTE | 2020-11-11 17:56 | NUR ---
SHIFT SUMMARY PATIENT TO THE FLOOR FROM PCU AROUND MID SHIFT. PATIENT ALERT, ORIENTED, FORGETFUL THIS SHIFT. PATIENT REMAINS ON 4L O2/MIN, STATES THIS IS HIS HOME USAGE. PATIENT SITTING UP IN BED WATCHING TELEVISION THIS SHIFT. PATIENT'S SPOUSE IN THE ROOM VISITING THIS AFTERNOON. PATIENT DENIES DIFFICULTY BREATHING THIS SHIFT. PATIENT CURRENTLY SITTING UP IN BED EATING DINNER.
--- NOTE | 2020-11-12 02:17 | NUR ---
75 year old MAle with multiple medical problems including Parkinsons disease & CAD PVD CHF HX [place] with pacemaker & per PT report AICD continues on Tele monitor with SR BBB paced at 65. COPD with VINNIE on baseline 4 l NC & CPAP. Chronic back & hip pain on dilaudid 8 mg oral q 6 hrs prn didnt request rx until around midnight for pain of 9/10. Resting comfortably after dilaudid given. UP with 2 max FWW gait belt per report, PT was up to BS chair at shift change. PT is & he says is caregiver. Was a PCU transfer yesterday for acute CHF. HX of falls calls appropriate. Fall precautions in place. Forgetful reported early dementia, said he missed dinner but 70% charted.
[2020-11-12 06:03] LABS: Anion Gap 2 mmol/L (6-16); Blood Urea Nitrogen 28 mg/dL (8-24); Bun/Creatinine Ratio 35.1 (12.0-20.0); CO2, Blood 35 mmol/L (21-32); Calcium, Blood 8.6 mg/dL (8.5-10.1); Chloride, Blood 102 mmol/L (98-108); Glomerular Filtration Rate >60 (60-); Glucose, Blood 126 mg/dL (70-99); Magnesium, Blood 2.1 mg/dL (1.6-2.4); Potassium, Blood 3.9 mmol/L (3.5-5.5); Sodium, Blood 139 mmol/L (136-145)
--- NOTE | 2020-11-12 10:41 | NUR ---
PATIENT HAD A 12-BEAT RUN OF VTACH THIS MORNING AT APPROX 0830. I INFORMED DR MANSFIELD OF THIS WHILE HE WAS ROUNDING ON THE PATIENT; HE DID NOT SHOW CONCERN D/T PATIENTS LABS THIS AM BEING STABLE.
[2020-11-12] MEDS ORDERED: FURO40 PO (12:09)
--- NOTE | 2020-11-12 13:59 | NUR ---
PATIENT PREPPED FOR DISCHARGED. IV AND TELE REMOVED. TELE TUBED BACK TO AUDITOR INTERNAL. STILL AWAITING RT FOR HOME O2 EVAL. JOIN PATIENT AT BEDSIDE.
--- NOTE | 2020-11-12 14:15 | NUR ---
DISCHARGE INSTRUCTIONS REVIEWED WITH PATIENT AND HIS . ALL QUESTIONS ANSWERED. PATIENT JUST WAITING ON RT FOR HOME O2 EVAL AT THIS TIME FOR DISCHARGE. I DID CALL TO ATTEMPT TO SCHEDULE AN APPOINTMENT WITH DR BRAUN, PATIENTS PRODUCT DEVELOPMENT COORDINATOR, HOWEVER THE OFFICE SAID THEY WOULD REACH OUT TO THE PATIENT TO SCHEDULE THE APPOINTMENT.
--- NOTE | 2020-11-12 15:05 | NUR ---
PATIENT DISCHARGED HOME AT 1451. PATIENT WAS ESCORTED OUT IN W/C BY RN. TOOK PATIENT HOME IN AUTOMOBILE.
== END 2020-11-12 14:49 | disposition home health service (06) | DRG 291 ==
LOC: ER 22:47 → PCU 11-09 00:16 → MEDS 11-11 12:23
PROVIDERS: Emergency Medicine; Internal Medicine; ADMIT Internal Medicine
PROC: 5A09357 Assistance with Respiratory Ventilation, Less than 24 Consecutive Hours, Continuous Positive Airway Pressure (ICD-10-PCS; principal; 2020-11-09)
DX: I11.0 Hypertensive heart disease with heart failure (principal); I50.21 Acute systolic (congestive) heart failure; J96.92 Respiratory failure, unspecified with hypercapnia; J96.91 Respiratory failure, unspecified with hypoxia; E87.2 Acidosis; I50.33 Acute on chronic diastolic (congestive) heart failure; G20 Parkinson's disease; R19.7 Diarrhea, unspecified; J44.9 Chronic obstructive pulmonary disease, unspecified; G47.33 Obstructive sleep apnea (adult) (pediatric); G89.4 Chronic pain syndrome; I73.9 Peripheral vascular disease, unspecified; K21.9 Gastro-esophageal reflux disease without esophagitis; F32.9 Major depressive disorder, single episode, unspecified; N40.0 Benign prostatic hyperplasia without lower urinary tract symptoms; I25.10 Atherosclerotic heart disease of native coronary artery without angina pectoris; Z74.09 Other reduced mobility; I25.2 Old myocardial infarction; Z95.1 Presence of aortocoronary bypass graft; Z95.5 Presence of coronary angioplasty implant and graft; Z95.810 Presence of automatic (implantable) cardiac defibrillator; Z79.899 Other long term (current) drug therapy; Z79.02 Long term (current) use of antithrombotics/antiplatelets; Z79.82 Long term (current) use of aspirin
CPT/HCPCS: 36415; 71045; 80048; 80053; 82803; 83735; 83880; 84484; 85025; 85027; 87493; 93005; 93010; 93306; 93308; 93321; 94640; 94660; 94761; 94762; 96374; 97110; 97112; 97116; 97162; 97530; 99285-25; A9270; J1650; J1940; J2930

== ENCOUNTER 2020-12-03 23:55 | Emergency (ER) | payer MEDICARE, OTHER ==
[~2020-12-03] VITALS: Ht 182.9 cm; Wt 108.9 kg
[~2020-12-03 23:55] MED LIST changes: +CARBLEV25 PO; +MYRBETRIQ50 MG PO
[2020-12-04 01:05] LABS: BASOPHILS ABSOLUTE AUTO 0.03 K/mm3 (0.00-0.23); BASOPHILS PERCENT AUTO 0 % (0-2); EOSINOPHILS ABSOLUTE AUTO 0.06 K/mm3 (0.00-0.68); EOSINOPHILS PERCENT AUTO 1 % (0-6); Hematocrit 38.6 % (37.0-53.0); Hemoglobin 12.2 g/dL (13.5-17.5); IMMATURE GRAN ABSOLUTE AUTO 0.03 K/mm3 (0.00-0.10); IMMATURE GRAN PERCENT AUTO 0 % (0-1); LYMPHOCYTES ABSOLUTE AUTO 1.64 K/mm3 (0.84-5.20); LYMPHOCYTES PERCENT AUTO 25 % (21-46); MONOCYTES ABSOLUTE AUTO 0.48 K/mm3 (0.16-1.47); MONOCYTES PERCENT AUTO 7 % (4-13); Mean Corpuscular HGB 31.5 pg (26.0-34.0); Mean Corpuscular HGB Conc 31.6 g/dL (31.5-36.5); Mean Corpuscular Volume 100 fL (80-100); Mean Platelet Volume 11.7 fL (9.1-12.4); NEUTROPHILS ABSOLUTE AUTO 4.43 K/mm3 (1.96-9.15); NEUTROPHILS PERCENT AUTO 67 % (41-73); Platelet Count 170 K/mm3 (150-400); RDW Coefficient Variation 14.1 % (11.7-14.2); RDW Standard Deviation 51.8 fL (35.1-46.3); Red Blood Cell Count 3.87 M/mm3 (4.30-5.90); White Blood Cell Count 6.67 K/mm3 (4.00-11.30)
[2020-12-04 01:21] LABS: Troponin I <0.015 ng/mL (0.000-0.040)
[2020-12-04 01:23] LABS: Alanine Aminotransfer (ALT/SGP 22 U/L (12-78); Albumin, Blood 3.2 g/dL (3.4-5.0); Albumin/Globulin Ratio 0.8 (0.8-1.8); Alk Phos 104 U/L (50-136); Anion Gap 3 mmol/L (6-16); Aspartate Aminotrans (AST/SGOT 41 U/L (12-37); Bilirubin, Total 0.4 mg/dL (0.1-1.0); Blood Urea Nitrogen 20 mg/dL (8-24); Bun/Creatinine Ratio 33.6 (12.0-20.0); CO2, Blood 28 mmol/L (21-32); Calcium, Blood 8.9 mg/dL (8.5-10.1); Chloride, Blood 108 mmol/L (98-108); Globulin, Blood 3.9 g/dL (2.2-4.0); Glomerular Filtration Rate >60 (60-); Glucose, Blood 124 mg/dL (70-99); Potassium, Blood 5.5 mmol/L (3.5-5.5); Sodium, Blood 139 mmol/L (136-145); Total Protein, Blood 7.1 g/dL (6.4-8.2)
== END 2020-12-04 05:11 | disposition home or self-care (01) ==
LOC: ER 23:55
PROVIDERS: Emergency Medicine
DX: I11.0 Hypertensive heart disease with heart failure (principal); I50.9 Heart failure, unspecified; J44.9 Chronic obstructive pulmonary disease, unspecified; I25.2 Old myocardial infarction
CPT/HCPCS: 71045; 80053; 83880; 84484; 85025; 93005; 93010; 96374; 99284-25; A9270

== ENCOUNTER → 2020-12-27 | Outpatient (CLI) | payer MEDICARE, OTHER | END | disposition home or self-care (01) | LOC: LAB SHORT 13:06 | DX: T17 Foreign body in respiratory tract (principal) | CPT/HCPCS: 87070; 87205 ==

== ENCOUNTER 2021-04-04 03:55 | Emergency (ER) | payer MEDICARE, OTHER ==
[~2021-04-04] VITALS: Ht 182.9 cm; Wt 108.9 kg
[~2021-04-04 03:55] MED LIST changes: +PRED20 PO
[2021-04-04 04:10] LABS: Base Excess Venous 6.2 mmol/L; Bicarbonate Venous 28.5 mmol/L (24.0-30.0); PO2 Venous 49.1 mmHg (38-42); pH Blood Venous 7.37 (7.34-7.37)
[2021-04-04 04:15] LABS: BASOPHILS ABSOLUTE AUTO 0.01 K/mm3 (0.00-0.23); BASOPHILS PERCENT AUTO 0 % (0-2); EOSINOPHILS PERCENT AUTO 0 % (0-6); Hematocrit 38.6 % (37.0-53.0); Hemoglobin 12.1 g/dL (13.5-17.5); IMMATURE GRAN ABSOLUTE AUTO 0.03 K/mm3 (0.00-0.10); IMMATURE GRAN PERCENT AUTO 0 % (0-1); LYMPHOCYTES ABSOLUTE AUTO 1.69 K/mm3 (0.84-5.20); LYMPHOCYTES PERCENT AUTO 22 % (21-46); MONOCYTES ABSOLUTE AUTO 0.52 K/mm3 (0.16-1.47); MONOCYTES PERCENT AUTO 7 % (4-13); Mean Corpuscular HGB 31.8 pg (26.0-34.0); Mean Corpuscular HGB Conc 31.3 g/dL (31.5-36.5); Mean Corpuscular Volume 102 fL (80-100); NEUTROPHILS ABSOLUTE AUTO 5.55 K/mm3 (1.96-9.15); NEUTROPHILS PERCENT AUTO 71 % (41-73); Platelet Count 143 K/mm3 (150-400); RDW Coefficient Variation 14.3 % (11.7-14.2); RDW Standard Deviation 53.8 fL (35.1-46.3)
[2021-04-04 04:34] LABS: Anion Gap 2 mmol/L (6-16); Blood Urea Nitrogen 27 mg/dL (8-24); Bun/Creatinine Ratio 38.6 (12.0-20.0); CO2, Blood 32 mmol/L (21-32); Calcium, Blood 8.9 mg/dL (8.5-10.1); Chloride, Blood 108 mmol/L (98-108); Glomerular Filtration Rate >60 (60-); Glucose, Blood 105 mg/dL (70-99); Magnesium, Blood 2.4 mg/dL (1.6-2.4); Potassium, Blood 3.8 mmol/L (3.5-5.5); Sodium, Blood 142 mmol/L (136-145)
[2021-04-04 05:04] LABS: SARS-Cov-2 (COVID-19) PCR, MMC NEGATIVE (NEGATIVE)
[2021-04-04] MEDS ORDERED: TORSE20 PO (06:16)
== END 2021-04-04 07:03 | disposition home or self-care (01) ==
LOC: ER 03:55
PROVIDERS: Student in an Organized Health Care Education/Training Program
DX: I11.0 Hypertensive heart disease with heart failure (principal); I50.30 Unspecified diastolic (congestive) heart failure; J44.1 Chronic obstructive pulmonary disease with (acute) exacerbation; J81.1 Chronic pulmonary edema; I25.10 Atherosclerotic heart disease of native coronary artery without angina pectoris; I25.2 Old myocardial infarction; N40.0 Benign prostatic hyperplasia without lower urinary tract symptoms; K21.9 Gastro-esophageal reflux disease without esophagitis; Z79.899 Other long term (current) drug therapy; Z79.82 Long term (current) use of aspirin; Z99.81 Dependence on supplemental oxygen; Z20.822 Contact with and (suspected) exposure to COVID-19
CPT/HCPCS: 71045; 80048; 82803; 83735; 83880; 85025; 93005; 93010; 94644; 96374; 96375; 99285-25; A9270; J1940; J2930; U0004

== ENCOUNTER 2021-10-21 01:11 | Emergency (ER) | payer MEDICARE, OTHER ==
[~2021-10-21] VITALS: Ht 182.9 cm; Wt 104.3 kg
[~2021-10-21 01:11] MED LIST changes: +Norco 5-325 Ta1 EACH PO; +TORSE20 PO
[2021-10-21 01:32] LABS: BASOPHILS ABSOLUTE AUTO 0.05 K/mm3 (0.00-0.23); BASOPHILS PERCENT AUTO 0 % (0-2); EOSINOPHILS ABSOLUTE AUTO 0.04 K/mm3 (0.00-0.68); EOSINOPHILS PERCENT AUTO 0 % (0-6); Hematocrit 45.1 % (37.0-53.0); IMMATURE GRAN ABSOLUTE AUTO 0.04 K/mm3 (0.00-0.10); IMMATURE GRAN PERCENT AUTO 0 % (0-1); LYMPHOCYTES ABSOLUTE AUTO 2.06 K/mm3 (0.84-5.20); LYMPHOCYTES PERCENT AUTO 17 % (21-46); MONOCYTES ABSOLUTE AUTO 0.54 K/mm3 (0.16-1.47); MONOCYTES PERCENT AUTO 4 % (4-13); Mean Corpuscular HGB 31.1 pg (26.0-34.0); Mean Corpuscular Volume 100 fL (80-100); Mean Platelet Volume 10.1 fL (9.1-12.4); NEUTROPHILS ABSOLUTE AUTO 9.78 K/mm3 (1.96-9.15); NEUTROPHILS PERCENT AUTO 78 % (41-73); Platelet Count 165 K/mm3 (150-400); RDW Coefficient Variation 13.8 % (11.7-14.2); RDW Standard Deviation 50.8 fL (35.1-46.3); White Blood Cell Count 12.51 K/mm3 (4.00-11.30)
[2021-10-21 01:42] LABS: Alanine Aminotransfer (ALT/SGP 10 U/L (12-78); Albumin, Blood 3.3 g/dL (3.4-5.0); Albumin/Globulin Ratio 0.9 (0.8-1.8); Alk Phos 98 U/L (50-136); Anion Gap 4 mmol/L (6-16); Aspartate Aminotrans (AST/SGOT 10 U/L (12-37); Bilirubin, Total 0.6 mg/dL (0.1-1.0); Blood Urea Nitrogen 12 mg/dL (8-24); Bun/Creatinine Ratio 21.9 (12.0-20.0); CO2, Blood 30 mmol/L (21-32); Calcium, Blood 9.8 mg/dL (8.5-10.1); Chloride, Blood 106 mmol/L (98-108); Creatinine, Blood 0.55 mg/dL (0.60-1.20); Globulin, Blood 3.7 g/dL (2.2-4.0); Glomerular Filtration Rate >60 (60-); Glucose, Blood 122 mg/dL (70-99); Potassium, Blood 4.3 mmol/L (3.5-5.5); Sodium, Blood 140 mmol/L (136-145)
[2021-10-21] MEDS ORDERED: LEVO750 PO (04:42)
== END 2021-10-21 05:25 | disposition home or self-care (01) ==
LOC: ER 01:11
PROVIDERS: Student in an Organized Health Care Education/Training Program
DX: J18.9 Pneumonia, unspecified organism (principal); D72.829 Elevated white blood cell count, unspecified; I11.0 Hypertensive heart disease with heart failure; I50.32 Chronic diastolic (congestive) heart failure; J44.9 Chronic obstructive pulmonary disease, unspecified; K21.9 Gastro-esophageal reflux disease without esophagitis; G20 Parkinson's disease; I25.10 Atherosclerotic heart disease of native coronary artery without angina pectoris; Z99.81 Dependence on supplemental oxygen; Z79.82 Long term (current) use of aspirin; Z79.899 Other long term (current) drug therapy
CPT/HCPCS: 71045; 80053; 83880; 84484; 85025; 93005; 93010; A9270; J1170; J1956

== ENCOUNTER 2022-01-05 06:18 | Day surgery (SDC) | payer MEDICARE, OTHER ==
[~2022-01-05] VITALS: Ht 182.9 cm; Wt 107.7 kg
[~2022-01-05 06:18] MED LIST changes: +ALBU2.5V5 INH; +Aspir 8181 MG PO; +Bisoprolol Fuma10 MG PO; +CARBIDOPA-LEVO1 EA15 PO; +DOCU100 PO; +FLONASE ALLERG9.9 M2; +FOLI1 PO; +ISOSORBIDE MONO60 MG PO; +LEVO750 PO; +Prinivil10 MG PO; +TRELEGY ELLIPT1 EACH INH; +Tylenol325 MG PO
--- NOTE | 2022-01-05 07:10 | NUR ---
01/05/[address] NOTIFIED PT TOOK NITRO YESTERDAY FOR CHEST PAIN. NO CHEST PAIN AT THIS TIME. NO ORDERS GIVEN.
[2022-01-13] MEDS ORDERED: ABILIFY MYCITE5 M2 PO (14:45)
[2022-01-13] MEDS ORDERED: BENADRYL25 MG PO (14:47)
== END 2022-01-05 08:25 | disposition home or self-care (01) ==
LOC: ORSCSDS 06:18
PROVIDERS: Orthopaedic Surgery
PROC: 01N50ZZ Release Median Nerve, Open Approach (ICD-10-PCS; principal; 2022-01-05 07:30)
DX: G56.01 Carpal tunnel syndrome, right upper limb (principal); I10 Essential (primary) hypertension; G47.33 Obstructive sleep apnea (adult) (pediatric); Z99.81 Dependence on supplemental oxygen; I25.10 Atherosclerotic heart disease of native coronary artery without angina pectoris; I50.9 Heart failure, unspecified; E66.9 Obesity, unspecified; Z68.32 Body mass index [BMI] 32.0-32.9, adult; J44.9 Chronic obstructive pulmonary disease, unspecified; Z79.02 Long term (current) use of antithrombotics/antiplatelets; Z79.899 Other long term (current) drug therapy; F41.8 Other specified anxiety disorders
CPT/HCPCS: J0171; J0690; J1100; J2250; J2405; J2704; J3010; J7120

== ENCOUNTER 2022-03-04 19:43 | Inpatient (IN) | payer MEDICARE, OTHER ==
[~2022-03-04] VITALS: Ht 182.9 cm; Wt 108.0 kg
[~2022-03-04 19:43] MED LIST changes: +BENADRYL25 MG PO; +HYDMOR2 PO
[2022-03-04 20:36] LABS: BASOPHILS ABSOLUTE AUTO 0.03 K/mm3 (0.00-0.23); BASOPHILS PERCENT AUTO 0 % (0-2); EOSINOPHILS ABSOLUTE AUTO 0.04 K/mm3 (0.00-0.68); EOSINOPHILS PERCENT AUTO 0 % (0-6); Hematocrit 38.9 % (37.0-53.0); Hemoglobin 12.8 g/dL (13.5-17.5); IMMATURE GRAN ABSOLUTE AUTO 0.02 K/mm3 (0.00-0.10); IMMATURE GRAN PERCENT AUTO 0 % (0-1); LYMPHOCYTES ABSOLUTE AUTO 1.86 K/mm3 (0.84-5.20); LYMPHOCYTES PERCENT AUTO 20 % (21-46); MONOCYTES ABSOLUTE AUTO 0.53 K/mm3 (0.16-1.47); MONOCYTES PERCENT AUTO 6 % (4-13); Mean Corpuscular HGB 32.2 pg (26.0-34.0); Mean Corpuscular HGB Conc 32.9 g/dL (31.5-36.5); Mean Corpuscular Volume 98 fL (80-100); Mean Platelet Volume 10.1 fL (9.1-12.4); NEUTROPHILS ABSOLUTE AUTO 6.79 K/mm3 (1.96-9.15); NEUTROPHILS PERCENT AUTO 73 % (41-73); Platelet Count 157 K/mm3 (150-400); RDW Coefficient Variation 15.4 % (11.7-14.2); RDW Standard Deviation 55.7 fL (35.1-46.3); Red Blood Cell Count 3.97 M/mm3 (4.30-5.90); White Blood Cell Count 9.27 K/mm3 (4.00-11.30)
[2022-03-04 20:51] LABS: Albumin, Blood 3.1 g/dL (3.4-5.0); Albumin/Globulin Ratio 0.9 (0.8-1.8); Bilirubin, Total 0.3 mg/dL (0.1-1.0); Bun/Creatinine Ratio 29.5 (12.0-20.0); Calcium, Blood 9.7 mg/dL (8.5-10.1); Creatinine, Blood 0.78 mg/dL (0.60-1.20); Globulin, Blood 3.3 g/dL (2.2-4.0); Potassium, Blood 4.6 mmol/L (3.5-5.5); Total Protein, Blood 6.4 g/dL (6.4-8.2)
[2022-03-04 21:54] LABS: Influenza A, PCR NEGATIVE (NEGATIVE); Influenza B, PCR NEGATIVE (NEGATIVE); Resp Syncytial Virus, PCR NEGATIVE (NEGATIVE); SARS-Cov-2 (COVID-19) PCR, MMC NEGATIVE (NEGATIVE)
[2022-03-05 01:42] LABS: Source, Urine Foley catheter
[2022-03-05 01:46] LABS: Bilirubin, Urine Neg (Neg); Blood, Urine Neg (Neg); Glucose Qualitative, Urine Neg (Neg); Ketones, Urine Neg (Neg); Leukocyte Esterase, Urine Neg (Neg); Nitrite, Urine Neg (Neg); Protein, Urine Neg (Neg); Urobilinogen, Urine NORM (Normal)
[2022-03-05 01:50] LABS: Appearance, Urine Clear (Clear); Color, Urine Pale Yellow (P-Yellow)
--- NOTE | 2022-03-05 05:51 | NUR ---
SHIFT SUMMARY: AFTER ARRIVING TO THE UNIT, THE PATIENT WAS ABLE TO REST COMFORTABLY. BLEVINS REMAINS IN PLACE AND IS PATENT AND DRAINING LIGHT YELLOW URINE AT THIS TIME. 3L 02 VIA NC REMAINS IN PLACE. PT DENIES ANY PAIN. BREATHING W/O DISTRESS. CURRENTLY BEDREST. CALL LIGHT IN REACH.
[2022-03-05 07:34] LABS: Calcium, Blood 9.7 mg/dL (8.5-10.1); Creatinine, Blood 0.77 mg/dL (0.60-1.20); Potassium, Blood 4.5 mmol/L (3.5-5.5)
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
--- NOTE | 2022-03-05 17:30 | NUR ---
SHIFT SUMMARY NO ACUTE CHANGES DURING SHIFT. PT ALERT AND ORIENTED FOLLOWS COMMANDS. BLEVINS IN PLACE, DRAINING TO GRAVITY. PT ON 3L NC, SPO2 > 92%. IV LASIX AND STEROIDS CONTINUED. PT UP TO CHAIR FOR MEALS, X 1 ASSIST WITH GAIT BELT. WILL CONTINUE TO MONITOR. CALL SHIPLEY WITHIN REACH.
[2022-03-06 05:05] LABS: Albumin, Blood 3.3 g/dL (3.4-5.0); Anion Gap 7 mmol/L (6-16); Blood Urea Nitrogen 30 mg/dL (8-24); Bun/Creatinine Ratio 37.6 (12.0-20.0); CO2, Blood 30 mmol/L (21-32); Calcium, Blood 9.7 mg/dL (8.5-10.1); Chloride, Blood 101 mmol/L (98-108); Glomerular Filtration Rate 91 (60-); Glucose, Blood 195 mg/dL (70-99); Phosphorus, Blood 2.9 mg/dL (2.5-4.9); Potassium, Blood 4.8 mmol/L (3.5-5.5); Sodium, Blood 138 mmol/L (136-145)
--- NOTE | 2022-03-06 07:27 | NUR ---
Rn summary: Patient had a good night. Tele shows sinus rhythm in the 90's. Lung sounds are diminished, shallow breaths during assessment. Patient is on 3 liters O2 which is his baseline. Norman present due to retention. Redish to groin area, nystatin powder to groin. Binh feet with contractures. Assisted to change position as pt allowed. Pt did play on his phone until 2 am, but slept after. call light in reach, stable.
--- NOTE | 2022-03-06 10:26 | NUR ---
RN NOTE PT SAID HE FEELS MORE SHAKEY THAN USUAL WITH PARKINSONS TREMORS. HE SAID HE NORMALLY TAKES HIS SINAMET SUBLINGUAL AND THIS AM HE SWALLOWED IT. HE REQUESTED AN EXTRA DOSE. DR GOMEZ CALLED AND TELEPHONE ORDER FOR ONE TIME EXTRA DOSE ENTERED INTO [employer]
--- NOTE | 2022-03-06 17:55 | NUR ---
SHIFT SUMMARY MR PEREZ IS ALERT AND ORIENTATED, APPROPRIATE ANSWERS TO QUESTIONS. HE TOLD ME THAT HE IS SOMETIMES A BIT FORGETFUL AND THAT HE HAS BEEN TOLD HE HAS EARLY STAGE DEMENTIA. PT SAID HIS PARKINSONS TREMORS ARE AT BASELINE LEVEL THIS AFTERNOON. ON TELEMETRY AND CONTINUOUS PULSE OXIMENTER. SR IN THE S BBB, PULSE OX IN THE 90S ON 3L O2 NC. C/O MILD CHEST TIGHTNESS THAT HE SAID IS HIS BASELINE THAT HE "ALWAYS HAS". HE DENIED ANY HIP PAIN THIS AFTERNOON/EVENING, NO PAIN MEDICATIONS GIVEN THIS SHIFT. HE STILL HAS BLEVINS CATHETER IN PLACE TO BEDSIDE DRAINAGE. ASSISTED UP TO CHAIR WITH 2 PERSON ASSIST TO TRANSFER THIS MORNING FOR BREAKFAST AND HE DID NOT WANT TO GET UP OUT OF BED AGAIN FOR SUPPER. BED LOW, CALL LIGHT IN REACH.
--- NOTE | 2022-03-07 03:15 | NUR ---
PATIENT COMPLAINING OF CHEST PAIN PT REPORTING CHEST PRESSURE. PERFORMED EKG; RESULTS NORMAL SINUS, 84BPM, W/LEFT BUNDLE BRANCH BLOCK. GAVE PT ONE TAB OF NITRO AND CP RESOLEVED. DR ORDERED TROPONIN LEVEL NOW AND IN THREE HOURS. FIRST TOPONIN NEG. WILL CONT TO MONITOR.
[2022-03-07 03:54] LABS: Albumin, Blood 3.1 g/dL (3.4-5.0); Anion Gap 7 mmol/L (6-16); Blood Urea Nitrogen 38 mg/dL (8-24); Bun/Creatinine Ratio 49.4 (12.0-20.0); CO2, Blood 30 mmol/L (21-32); Calcium, Blood 9.5 mg/dL (8.5-10.1); Chloride, Blood 101 mmol/L (98-108); Creatinine, Blood 0.77 mg/dL (0.60-1.20); Glomerular Filtration Rate 92 (60-); Glucose, Blood 179 mg/dL (70-99); Phosphorus, Blood 2.5 mg/dL (2.5-4.9); Potassium, Blood 4.9 mmol/L (3.5-5.5); Sodium, Blood 138 mmol/L (136-145)
--- NOTE | 2022-03-07 04:32 | NUR ---
LEADING FIREFIGHTER SUMMARY PT A/OX 4; NOTED SOME SLOWNESS TO RESPOND/RECALL. PT COMPLAINED OF INTENSE PAIN IN BACK/HIPS; PT WAS MOANING IN PAIN; MED P/EMAR. ONE EPISODE OF PATIENT COMPLAINING OF CHEST PAIN--SEE PATIENT NOTE. CONTINUED TO MONITOR T/O THE NIGHT; PT DENIED ANY FURTHER CHEST PAIN/TIGHTNESS. TWO TROPONIN LABS DRAWN AND BOTH WNL. RT PLACED CPAP ON PATIENT; HE DID NOT TOLERATE AND REMOVED FOR MOST OF THE NIGHT. PATIENT IS W/C BOUND AT BASE LINE; 2PA FOR TRANSFERS. CALL LIGHT IN REACH.
--- NOTE | 2022-03-07 11:26 | NUR ---
RN NOTE MR PEREZ IS A&O, OCCASIONALLY FORGETFUL OR ASKS REPEAT QUESTIONS. NO CHEST PAIN TODAY. SOME SOB ON EXERTION ON 3L NC, ON CONTINUOUS PULSE OX IN THE 90S. UP TO CHAIR WITH 2 PERSON FULL ASSISTANCE. HE CAN WEIGHT BEAR WITH GAIT BELT AND WALKER AND 2 PERSON SUPPORT. BLEVINS REMOVED AT 0945. HE SAID HE IS INCONTINENT OF URINE AT BASELINE. ATTEMPTS TO PUT CONDOM CATHETER ON UNSUCCESSFUL. CXR DONE. VISITED WITH HIM THIS AM.
--- NOTE | 2022-03-08 05:04 | NUR ---
PT COMPLAINING OF CHEST PAIN PT REPORTING CP/PRESSURE AND LEFT ARM PAIN. PERFORMED EKG. RESULTS SINUS RHYTHM W/ OCC PVC AND LEFT BBB. ADMINISTERED 1 DOSE OF SL NITRO AND PATIENT REPORTED PAIN RESOLVED W/IN FIVE MINUTES. CONTACTED DR MANSFIELD; HE SAID NO ADDITIONAL INTERVENTIONS NEEDED. TWO TROPONINS DRAWN YESTERDAY WERE WNL. WILL CONTINUE TO MONITOR.
[2022-03-08 05:12] LABS: Albumin, Blood 3.1 g/dL (3.4-5.0); Anion Gap 6 mmol/L (6-16); Blood Urea Nitrogen 41 mg/dL (8-24); Bun/Creatinine Ratio 56.6 (12.0-20.0); CO2, Blood 33 mmol/L (21-32); Calcium, Blood 9.6 mg/dL (8.5-10.1); Chloride, Blood 99 mmol/L (98-108); Creatinine, Blood 0.73 mg/dL (0.60-1.20); Glomerular Filtration Rate 93 (60-); Glucose, Blood 137 mg/dL (70-99); Phosphorus, Blood 3.1 mg/dL (2.5-4.9); Potassium, Blood 4.6 mmol/L (3.5-5.5); Sodium, Blood 138 mmol/L (136-145)
--- NOTE | 2022-03-08 06:09 | NUR ---
LINE DECORATOR SUMMARY PT A/OX4 W/SOME CONFUSION AND FORGETFULLNESS. EPISODE OF CHEST PAIN--SEE NURSE NOTE. PT IS ON 3L O2 NC. LUNG SOUNDS COARSE ON EXPIRATION THROUGH OUT. ON CONT PULSE OX; SAT CONSISTANTLY >90%. PT IS VOIDING AND INCONTENENT OF URINE. REDNESS IN GROIN AREA; BARRIER CREAM APPLIED. PT IS CONTINUTING TO HAVE CHRONIC BACK PAIN; MED P/EMAR. PT ON TELE; NORMAL SINUS W/OCC PVC AND LEFT BBB. CALL LIGHT IN REACH.
[2022-03-08] MEDS ORDERED: Bisoprolol Fumar5 MG PO (10:08)
[2022-03-08] MEDS ORDERED: ISOMON20 PO (10:10)
[2022-03-08] MEDS ORDERED: Aspir 8181 MG PO (10:11)
[2022-03-08] MEDS ORDERED: SOAANZ20 M1 PO (10:11)
[2022-03-08] MEDS ORDERED: DIPATR PO (10:12)
[2022-03-08] MEDS ORDERED: Flonase 0.05% N16 GM (10:13)
[2022-03-08] MEDS ORDERED: ALBU90OI INH (10:14)
--- NOTE | 2022-03-08 11:06 | NUR ---
RN NOTE MR PEREZ C/O FEELING LIKE HE COULDN'T CATCH HIS BREATH THIS AM. SAID HE FEELS LIKE HE NEEDS TO COUGH UP SPUTUM AND CAN'T GET IT UP. NO CHEST PAIN, NO HIP OR BACK PAIN PER PT AT REST, BUT HE DID LOOK UNCOMFORTABLE WHEN HELPED UP OUT OF BED TO CHAIR AND GETTING REPOSITIONED. RT TO BEDSIDE FOR TREATMENT. DR GOMEZ SAW PT. MEDICATION ORDERS ENTERED INTO [place] FROM TELEPHONE ORDER, D/C COREG. RONOLAZINE 500MG PO BID. METOPROLOL SUCCINATE 100MG PO BID. IMDUR 240MG PO. MUCINEX 60MG PO BID. PT RESTING AND LOOKS MORE COMFORTABLE AFTER TREATMENT.
--- NOTE | 2022-03-08 17:19 | NUR ---
SHIFT SUMMARY PLEASE SEE PRIOR RN NOTE. MR PEREZ HAS HAD LESS FEELINGS OF BEING SOB THIS AFTERNOON. HE DID HAVE A LOT OF BACK AND HIP PAIN ON MOVEMENT, HELPED WITH DILAUDID. UP A SECOND TIME TO THE CHAIR WITH 2 PERSON ASSISTANCE TO STAND AND PIVOT WITH GAIT BELT AND WALKER. HE SLEPT THIS AFTERNOON AND SAID HE FELT BETTER AFTER WAKING UP. NO EPISODES OF CHEST PAIN THIS SHIFT. PLAN FOR NUCLEAR MED STRESS TEST ?03/09 WITH 4 HRS NPO PRIOR TO TEST. 3LNC, CONTINUOUS PULSE OX IN THE 90S. NO CALLS FROM MATERIALS BUYER. IN CHAIR. CALL LIGHT IN REACH.
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
[2022-03-09 05:49] LABS: Albumin, Blood 3.1 g/dL (3.4-5.0); Anion Gap 7 mmol/L (6-16); Blood Urea Nitrogen 32 mg/dL (8-24); Bun/Creatinine Ratio 46.9 (12.0-20.0); CO2, Blood 32 mmol/L (21-32); Chloride, Blood 99 mmol/L (98-108); Creatinine, Blood 0.68 mg/dL (0.60-1.20); Glomerular Filtration Rate 95 (60-); Glucose, Blood 111 mg/dL (70-99); Phosphorus, Blood 2.8 mg/dL (2.5-4.9); Potassium, Blood 4.1 mmol/L (3.5-5.5); Sodium, Blood 138 mmol/L (136-145)
--- NOTE | 2022-03-09 18:20 | NUR ---
SHIFT SUMMARY: PT A&O X4, PLEASANT AND COOPERATIVE. PT NPO FRM 03/08/22, PT HAS A STRESS TEST SCHEDULED. PT HAS BEEN INCONTIENT OF BLADDER AND BOWEL. PT HAS REDDNESS IN THE GROIN AND BUTTOCK AREA. PT HAD CREAM AND POWDER APPLIED TO THE AREA PT IS 2 PERSON ASSIST WITH BED MOBILITY. PT IS ABLE TO STAD AT BEDSIDE WITH 2 PERSON ASSIST. PT HAS HX OF PARKINSONS AND DIFFICULTY WITH WALKING. DR. GOMEZ SEEN BY THE PT WITH NO NEW ORDERS. PT IN BED AND EATING A MEAL. CALL LIGHT WITHIN REACH.
--- NOTE | 2022-03-09 18:37 | NUR ---
THIS GUARDIAN FAMILY MEMBER HAS REVIEWED ALL NOTES AND ASSESSMENTS BY JASMINA SILVERMAN AND AGREES WITH THEM.
--- NOTE | 2022-03-10 05:20 | NUR ---
SHIFT SUMMARY PATIENT DENIES PAIN, NAUSEA, AND SHORTNESS OF BREATH. PATIENT IS A 2P FOR TRANSFERS. PATIENT SLEPT MOST OF SHIFT. PATIENT DID TAKE MULTIPLE FINGER MONITORS OFF FOR CONTINUOUS BIOX. EDUCATED PATIENT ON IMPORTANCE OF OXYGEN MONITORING. PATIENT REFUSED CPAP TONIGHT. PATIENT EDUCATED ON IMPORTANCE OF CPAP. PATIENT IS PLEASANT AND COOPERATIVE WITH CARE.
[2022-03-10 07:07] LABS: Albumin, Blood 3.1 g/dL (3.4-5.0); Anion Gap 6 mmol/L (6-16); Blood Urea Nitrogen 47 mg/dL (8-24); Bun/Creatinine Ratio 58.2 (12.0-20.0); CO2, Blood 33 mmol/L (21-32); Calcium, Blood 8.8 mg/dL (8.5-10.1); Chloride, Blood 100 mmol/L (98-108); Creatinine, Blood 0.81 mg/dL (0.60-1.20); Glomerular Filtration Rate 90 (60-); Glucose, Blood 137 mg/dL (70-99); Phosphorus, Blood 2.9 mg/dL (2.5-4.9); Potassium, Blood 3.7 mmol/L (3.5-5.5); Sodium, Blood 139 mmol/L (136-145)
[2022-03-10] MEDS ORDERED: Isosorbide Mono30 MG PO (12:52)
[2022-03-10] MEDS ORDERED: PRED20 PO (13:05)
[2022-03-10] MEDS ORDERED: RANO500T PO (13:06)
--- NOTE | 2022-03-10 15:07 | NUR ---
DISCHARGE NOTE: PT A&O AND PLEASANT. PT EDUCATED ON MEDICATION MANAGEMENT AND SIGNS AND SYMPTOMS OF HYPOXIA. PT TELE AND IV REMOVED BY BIRD LOPEZ. PT BELOGINGS PACKED BY SOCRATES LOPEZ AND AMAN. PT WAS ESCORTED VIA WHEELCHAIR BY ODETTE FREEDMAN WITH . PT DISCHARGED AT 1355.
--- NOTE | 2022-03-10 16:29 | NUR ---
THIS GLUE WHEEL OPERATOR HAS REVIEWED ALL NOTES AND ASSESSMENTS BY JASMINA SILVERMAN AND AGREES WITH THEM.
--- NOTE | 2022-03-12 21:44 | NUR ---
REVIEWED INFORMATION FOR CURRENT ADMISSION
== END 2022-03-10 13:40 | disposition home health service (06) | DRG 291 ==
LOC: ER 19:43 → MEDS 03-05 01:21
PROVIDERS: Family Medicine; Student in an Organized Health Care Education/Training Program; ADMIT Internal Medicine
PROC: 5A09357 Assistance with Respiratory Ventilation, Less than 24 Consecutive Hours, Continuous Positive Airway Pressure (ICD-10-PCS; principal; 2022-03-05)
DX: I11.0 Hypertensive heart disease with heart failure (principal); I50.43 Acute on chronic combined systolic (congestive) and diastolic (congestive) heart failure; J96.21 Acute and chronic respiratory failure with hypoxia; J44.1 Chronic obstructive pulmonary disease with (acute) exacerbation; I47.1 Supraventricular tachycardia; I25.10 Atherosclerotic heart disease of native coronary artery without angina pectoris; G20 Parkinson's disease; I73.9 Peripheral vascular disease, unspecified; N40.0 Benign prostatic hyperplasia without lower urinary tract symptoms; Z96.652 Presence of left artificial knee joint; F32.A Depression, unspecified; K21.9 Gastro-esophageal reflux disease without esophagitis; Z96.641 Presence of right artificial hip joint; E88.09 Other disorders of plasma-protein metabolism, not elsewhere classified; Z88.6 Allergy status to analgesic agent; Z88.5 Allergy status to narcotic agent; Z88.8 Allergy status to other drugs, medicaments and biological substances; Z79.899 Other long term (current) drug therapy; Z79.82 Long term (current) use of aspirin; Z79.02 Long term (current) use of antithrombotics/antiplatelets; I25.2 Old myocardial infarction; Z99.81 Dependence on supplemental oxygen; Z95.810 Presence of automatic (implantable) cardiac defibrillator; Z98.890 Other specified postprocedural states
CPT/HCPCS: 0241U; 36415; 51702; 71045; 71046; 78452; 80048; 80053; 80069; 81003; 83735; 83880; 84484; 85025; 93005; 93010; 93017; 94640; 94660; 94664; 94760; 94762; 96374; 96375; 96376; 97161; 97166; 97530; 99285-25; A9270; A9500; C8929; J0706; J1650; J1940; J2785; J2930; J7512; Q9957

== ENCOUNTER 2022-03-12 15:44 | Observation (INO) | payer MEDICARE, OTHER ==
[~2022-03-12] VITALS: Ht 190.5 cm; Wt 108.9 kg
[~2022-03-12 15:44] MED LIST changes: +ALBU90OI INH; +DIPATR PO; +ISOMON20 PO; +Isosorbide Mono30 MG PO; +RANO500T PO; +SOAANZ20 M1 PO
[2022-03-12 16:29] LABS: BASOPHILS ABSOLUTE AUTO 0.04 K/mm3 (0.00-0.23); BASOPHILS PERCENT AUTO 0 % (0-2); EOSINOPHILS ABSOLUTE AUTO 0.04 K/mm3 (0.00-0.68); EOSINOPHILS PERCENT AUTO 0 % (0-6); Hematocrit 44.4 % (37.0-53.0); Hemoglobin 14.4 g/dL (13.5-17.5); IMMATURE GRAN ABSOLUTE AUTO 0.24 K/mm3 (0.00-0.10); IMMATURE GRAN PERCENT AUTO 1 % (0-1); LYMPHOCYTES ABSOLUTE AUTO 1.12 K/mm3 (0.84-5.20); LYMPHOCYTES PERCENT AUTO 6 % (21-46); MONOCYTES ABSOLUTE AUTO 0.94 K/mm3 (0.16-1.47); MONOCYTES PERCENT AUTO 5 % (4-13); Mean Corpuscular HGB 31.5 pg (26.0-34.0); Mean Corpuscular HGB Conc 32.4 g/dL (31.5-36.5); Mean Corpuscular Volume 97 fL (80-100); Mean Platelet Volume 10.4 fL (9.1-12.4); NEUTROPHILS ABSOLUTE AUTO 14.99 K/mm3 (1.96-9.15); NEUTROPHILS PERCENT AUTO 86 % (41-73); Platelet Count 191 K/mm3 (150-400); RDW Coefficient Variation 15.2 % (11.7-14.2); RDW Standard Deviation 55.2 fL (35.1-46.3); Red Blood Cell Count 4.57 M/mm3 (4.30-5.90); White Blood Cell Count 17.37 K/mm3 (4.00-11.30)
[2022-03-12 16:38] LABS: Base Excess Venous 6.6 mmol/L; Bicarbonate Venous 28.2 mmol/L (24.0-30.0); PCO2 Venous 60.7 mmHg (38-42); pH Blood Venous 7.34 (7.34-7.37)
[2022-03-12 16:44] LABS: Albumin, Blood 3.4 g/dL (3.4-5.0); Albumin/Globulin Ratio 1.1 (0.8-1.8); Bilirubin, Total 0.6 mg/dL (0.1-1.0); Bun/Creatinine Ratio 35.4 (12.0-20.0); Calcium, Blood 9.3 mg/dL (8.5-10.1); Creatinine, Blood 1.27 mg/dL (0.60-1.20); Globulin, Blood 3.2 g/dL (2.2-4.0); Magnesium, Blood 2.1 mg/dL (1.6-2.4); Total Protein, Blood 6.6 g/dL (6.4-8.2)
[2022-03-12 18:14] LABS: Influenza A, PCR NEGATIVE (NEGATIVE); Influenza B, PCR NEGATIVE (NEGATIVE); Resp Syncytial Virus, PCR NEGATIVE (NEGATIVE)
[2022-03-12 19:39] LABS: SARS-Cov-2 (COVID-19) PCR, MMC POSITIVE (NEGATIVE)
[2022-03-12 23:20] LABS: Source, Urine Straight Cath
[2022-03-12 23:23] LABS: Bilirubin, Urine Neg (Neg); Blood, Urine Neg (Neg); Glucose Qualitative, Urine Neg (Neg); Ketones, Urine Neg (Neg); Leukocyte Esterase, Urine Neg (Neg); Nitrite, Urine Neg (Neg); Protein, Urine Neg (Neg); Urobilinogen, Urine NORM (Normal)
[2022-03-12 23:30] LABS: Appearance, Urine Clear (Clear); Color, Urine Yellow (P-Yellow)
--- NOTE | 2022-03-13 05:04 | NUR ---
SHIFT SUMMARY: PT IS ALERT AND ORIENTED. PT IS CALM AND COOPERATIVE WITH CARE. PT IS W/C BOUND AT BASELINE DUE TO PARKISON'S, NOT OUT OF BED OVERNIGHT. PT IS SOB ON ADMISSION, ON 4L 02, 3 L AT BASELINE, SATS MAINTAINING > 90%. PT DENIES PAIN, NAUSEA, AND VOMITING. PT SLEPT MUCH OF THE NIGHT AFTER ADMISSION. NO COMPLICATIONS OVERNIGHT. BED IN LOW POSITION, CALL LIGHT WITHIN REACH. WILL CONTINUE TO MONITOR.
[2022-03-13 05:07] LABS: Hemoglobin 13.7 g/dL (13.5-17.5); Mean Corpuscular HGB 31.6 pg (26.0-34.0); Mean Corpuscular HGB Conc 31.9 g/dL (31.5-36.5); Mean Corpuscular Volume 99 fL (80-100); Mean Platelet Volume 10.8 fL (9.1-12.4); Platelet Count 177 K/mm3 (150-400); RDW Coefficient Variation 15.5 % (11.7-14.2); RDW Standard Deviation 56.5 fL (35.1-46.3); Red Blood Cell Count 4.33 M/mm3 (4.30-5.90); White Blood Cell Count 15.46 K/mm3 (4.00-11.30)
[2022-03-13 05:38] LABS: Bun/Creatinine Ratio 47.3 (12.0-20.0); Calcium, Blood 8.8 mg/dL (8.5-10.1); Creatinine, Blood 0.87 mg/dL (0.60-1.20); Potassium, Blood 5.2 mmol/L (3.5-5.5)
--- NOTE | 2022-03-13 18:13 | NUR ---
SHIFT SUMMARY NO ACUTE CHANGES. PT ALERT AND PLEASANT. USES CALL LIGHT APPROPRIATELY. PT INCONTINET R/T TO PARKINSONS. PT HAD AN ELEVATED CO2 VALUE. ENCOURAGED TO USE CPAP AT HOME DURING NIGHT AND WILLING TO USE RESPIRATROY THERAPY CPAP TONIGHT. VSS. NO C/O PAIN OR SOB. BED IN LOWEST POSITION AND CALL LIGHT IN REACH.
--- NOTE | 2022-03-14 05:13 | NUR ---
PT REMAINS ALERT AND ORIENTED. PT CONTINUES TO BE PLEASANT AND COOPERATIVE WITH CARE. RT SETUP PT WITH CPAP, TOLERATED ONLY FOR A SHORT TIME BEFORE REQUESTING REMOVAL. PT CONTINUES TO USE BASELINE O2 OF 3L. PT DID NOT SLEEP MUCH OVERNIGHT. NO ACUTE CHANGES OR COMPLICATIONS. POSSIBLE DC HOME TODAY. WILL CONTINUE TO MONITOR.
[2022-03-14] MEDS ORDERED: DECADRON6 M1 PO (12:28)
--- NOTE | 2022-03-14 15:02 | NUR ---
REVIEWED DISCHARGE WITH PT AND SPOUSE. VERBALIZED UNDERSTANDING MEDS AND INST. IV PULLED INTACT. TELE REMOVED AND RETURNED. PT TO CHANGE AND DRESS WITH HELP OF AIDE AND HEAT REGULATOR.
== END 2022-03-14 14:03 | disposition home health service (06) ==
LOC: ER 15:44 → MEDS 15:45
PROVIDERS: Emergency Medicine; ADMIT Internal Medicine
DX: U07.1 COVID-19 (principal); J96.21 Acute and chronic respiratory failure with hypoxia; J96.22 Acute and chronic respiratory failure with hypercapnia; I25.10 Atherosclerotic heart disease of native coronary artery without angina pectoris; I50.32 Chronic diastolic (congestive) heart failure; J44.1 Chronic obstructive pulmonary disease with (acute) exacerbation; K21.9 Gastro-esophageal reflux disease without esophagitis; N40.0 Benign prostatic hyperplasia without lower urinary tract symptoms; I11.0 Hypertensive heart disease with heart failure; G47.33 Obstructive sleep apnea (adult) (pediatric); I73.9 Peripheral vascular disease, unspecified; R65.10 Systemic inflammatory response syndrome (SIRS) of non-infectious origin without acute organ dysfunction; G92.8 Other toxic encephalopathy; I25.2 Old myocardial infarction; G20 Parkinson's disease; Z96.641 Presence of right artificial hip joint; Z95.5 Presence of coronary angioplasty implant and graft; Z96.652 Presence of left artificial knee joint; Z79.82 Long term (current) use of aspirin; Z88.5 Allergy status to narcotic agent; Z88.1 Allergy status to other antibiotic agents; F32.A Depression, unspecified
CPT/HCPCS: 0241U; 36415; 51701; 71045; 80048; 80053; 81003; 82803; 82947; 83605; 83690; 83735; 83880; 84145; 84484; 85025; 85027; 93005; 93010; 94640; 94664; 94762; 96372; 96374; 96375; 96376; 99285-25; A9270; G0378; J1100; J1170; J1644; J1956; J7030; J7050

== ENCOUNTER 2022-04-07 10:56 | Observation (INO) | payer MEDICARE, OTHER ==
[~2022-04-07] VITALS: Ht 182.9 cm; Wt 111.5 kg
[~2022-04-07 10:56] MED LIST changes: +ABILIFY MYCITE10 M2 PO; -CARBIDOPA-LEVO1 EA15 PO; +CARBIDOPA-LEVO1 EA19 SL; +DECADRON6 M1 PO; -HYDMOR2 PO; -Isosorbide Mono30 MG PO
[2022-04-07 13:06] LABS: BASOPHILS ABSOLUTE AUTO 0.04 K/mm3 (0.00-0.23); BASOPHILS PERCENT AUTO 1 % (0-2); EOSINOPHILS ABSOLUTE AUTO 0.04 K/mm3 (0.00-0.68); EOSINOPHILS PERCENT AUTO 1 % (0-6); Hematocrit 39.2 % (37.0-53.0); IMMATURE GRAN ABSOLUTE AUTO 0.13 K/mm3 (0.00-0.10); IMMATURE GRAN PERCENT AUTO 2 % (0-1); LYMPHOCYTES ABSOLUTE AUTO 1.34 K/mm3 (0.84-5.20); LYMPHOCYTES PERCENT AUTO 15 % (21-46); MONOCYTES ABSOLUTE AUTO 0.77 K/mm3 (0.16-1.47); MONOCYTES PERCENT AUTO 9 % (4-13); Mean Corpuscular HGB 31.4 pg (26.0-34.0); Mean Corpuscular HGB Conc 30.6 g/dL (31.5-36.5); Mean Corpuscular Volume 103 fL (80-100); Mean Platelet Volume 10.3 fL (9.1-12.4); NEUTROPHILS ABSOLUTE AUTO 6.44 K/mm3 (1.96-9.15); NEUTROPHILS PERCENT AUTO 73 % (41-73); Platelet Count 158 K/mm3 (150-400); RDW Coefficient Variation 14.6 % (11.7-14.2); RDW Standard Deviation 55.1 fL (35.1-46.3); Red Blood Cell Count 3.82 M/mm3 (4.30-5.90); White Blood Cell Count 8.76 K/mm3 (4.00-11.30)
[2022-04-07 13:27] LABS: Albumin, Blood 2.9 g/dL (3.4-5.0); Albumin/Globulin Ratio 0.8 (0.8-1.8); Bilirubin, Total 0.7 mg/dL (0.1-1.0); Bun/Creatinine Ratio 24.1 (12.0-20.0); Calcium, Blood 9.8 mg/dL (8.5-10.1); Creatinine, Blood 0.79 mg/dL (0.60-1.20); Globulin, Blood 3.6 g/dL (2.2-4.0); Potassium, Blood 4.8 mmol/L (3.5-5.5); Total Protein, Blood 6.5 g/dL (6.4-8.2)
[2022-04-07 15:48] LABS: Base Excess Venous 5.7 mmol/L; Bicarbonate Venous 27.8 mmol/L (24.0-30.0); PCO2 Venous 62.4 mmHg (38-42); pH Blood Venous 7.32 (7.34-7.37)
--- NOTE | 2022-04-07 15:48 | NUR ---
Received call from ED RN Shruthi James and discussed case. Pt has multiple ED and hospital admits this past year. Pt may benefit from PC Consult. Pt resting on gurney upon arrival. Pt is known to this auto service writer from previous hospital admits. Made supportive visit and engaged in therapeutic conversation regarding code status wishes. X-Ray in to perform images. Pt requests for this RN to F/U when he is admitted to the floor to discuss wishes further. Palliative Care will F/U for Advanced Care Planning and code status discussion.
--- NOTE | 2022-04-07 19:20 | NUR ---
Received report from JASMINA Gordon. Patient up to room and settled into bed. Possessions within reach. 2L O2. Patient states "my legs are paralyzed." Report given to JASMINA Rob.
[2022-04-07 21:27] LABS: SARS-Cov-2 (COVID-19) PCR, MMC NEGATIVE (NEGATIVE)
--- NOTE | 2022-04-08 03:56 | NUR ---
SHIFT SUMMARY PT BROUGHT TO ROOM FROM ED AT 1900 SHIFT CHANGE. PT RECEIVED BY MYSELF AND PILI, OFFGOING RN. PT HERE FOR EXACERBATION OF PARKINSON'S. PT ALSO HAS LONG CARDIAC HX. 2L O2 HERE AND AT BASELINE. PT ALSO USES CPAP AT NIGHT WITH 2L O2 BLEED IN. PT HAS BEEN HAVING DIFFICULTY WITH HIS PARKINSON'S AND HAS BEEN UNABLE TO WALK RECENTLY. THIS AM PT WAS HAVING SOME FOOT/HEEL PAIN. PT MEDICATED PER EMAR WITH DILAUDID AND A PILLOW WAS PLACED UNDERNEATH THE PT'S FEET. PT STS THAT FEELS BETTER. PT CURRENTLY HAS NO COMPLAINTS AND HAS CALL LIGHT WITHIN HIS REACH.
[2022-04-08 06:33] LABS: Calcium, Blood 9.6 mg/dL (8.5-10.1); Creatinine, Blood 0.87 mg/dL (0.60-1.20); Potassium, Blood 4.3 mmol/L (3.5-5.5)
--- NOTE | 2022-04-08 17:00 | NUR ---
Pt resting in bed upon arrival. Joint visit with this RN and PC RN Savita. Engaged in therapeutic conversation regarding code status. Educated on life sustaining treatments including risk factors and implications of CPR. Pt reports wishes for DNR. Assisted Pt with completing POLST per his request. Gentle education on disease process including trajectory. Offered supportive listening and answered questions. Continued supportive listening as Pt reminences about his Bull riding days. Ended visit to allow Pt to rest. Spoke with Dr Bradley and discussed case. Changed Pt's code status to DNR per V/O from Dr Bradley. Palliative Care will obtain copy of POLST for medical records upon physician signature.
--- NOTE | 2022-04-08 17:43 | NUR ---
Shift Summary A/O, pleasant. Medicated for back pain per EMAR with good effect. 2p roll due to obesity. Patient is wanting to remove diuretics from med list. Also requesting stool softner and suppository. Has bm right at rectum. Discussed with Dr. Bradley, she will put in orders. Worked with PT. Code status changed to DNR, purple band verified with JASMINA Miller. Good appetite. 2L NC, this is baseline.
[2022-04-08] MEDS ORDERED: PRAZ2 PO (19:51)
--- NOTE | 2022-04-09 12:56 | NUR ---
Pt resting in bed upon arrival. Pt reports no concerns at this time. Dr Bradley has signed POLST. Obtained copy of POLST and will deliver to medical records. Placed original POLST on white board and instructed Pt to hang POLST on refridgerator at home.
--- NOTE | 2022-04-09 17:29 | NUR ---
SHIFT SUMMARY: PATIENT A&OX4. PLEASANT AND COOPERATIVE WITH CARE. USES CALL LIGHT APPROPRIATELY AND ABLE TO ADVOCATES FOR HIS NEEDS. PATIENT USES O2 2L VIA NC. WITH SPO2 ABOVE 92%. LUNGS CLEAR, DIMINISHED T/O. DENIES SOB. DENIES CP/CHEST DISCOMFORT. PATIENT HAS BEEN INCONTINENCE FOR BOWEL AND BLADDER T/O SHIFT. RECEIVED BEDBATH AND LINEN CHANGED TODAY AND TOLERATED WELL. PATIENT WAS ABLE TO PARTICIPATE WITH PT AND PERFORMED SOME AROM IN BED. PATIENT RECEIVED ALL SCHEDULED MEDS THIS SHIFT. PATIENT HAS GREAT APPETITE ATE 100% ALL MEALS. VITAL SIGNS REVIEWED. BED IN LOWEST POSITIONED, LOCKED, AND ALARM ON FOR SAFETY. CALL LIGHT, TELEPHONE AND ICE WATER WITHIN PATIENT REACH.
[2022-04-10 02:16] LABS: Hematocrit 39.7 % (37.0-53.0); Hemoglobin 12.7 g/dL (13.5-17.5); Mean Corpuscular HGB 31.8 pg (26.0-34.0); Mean Corpuscular Volume 99 fL (80-100); Mean Platelet Volume 10.3 fL (9.1-12.4); Platelet Count 169 K/mm3 (150-400); RDW Coefficient Variation 14.2 % (11.7-14.2); RDW Standard Deviation 50.9 fL (35.1-46.3); White Blood Cell Count 7.11 K/mm3 (4.00-11.30)
[2022-04-10 02:33] LABS: Albumin, Blood 2.7 g/dL (3.4-5.0); Albumin/Globulin Ratio 0.7 (0.8-1.8); Bilirubin, Total 0.7 mg/dL (0.1-1.0); Bun/Creatinine Ratio 24.5 (12.0-20.0); Calcium, Blood 9.4 mg/dL (8.5-10.1); Creatinine, Blood 0.74 mg/dL (0.60-1.20); Globulin, Blood 3.7 g/dL (2.2-4.0); Potassium, Blood 3.7 mmol/L (3.5-5.5); Total Protein, Blood 6.4 g/dL (6.4-8.2)
[2022-04-10 03:11] LABS: BAND PERCENT MAN 2 % (0-8); BASOPHILS ABSOLUTE MAN 0.07 K/mm3 (0.00-0.23); BASOPHILS PERCENT MAN 1 % (0-2); EOSINOPHILS ABSOLUTE MAN 0.07 K/mm3 (0.00-0.68); EOSINOPHILS PERCENT MAN 1 % (0-6); LYMPHOCYTES ABSOLUTE MAN 1.06 K/mm3 (0.84-5.20); LYMPHOCYTES PERCENT MAN 15 % (21-46); METAMYELOCYTE ABSOLUTE MAN 0.07 K/mm3 (0.00-0.00); METAMYELOCYTE PERCENT MAN 1 % (0-0); MONOCYTES ABSOLUTE MAN 0.85 K/mm3 (0.16-1.47); MONOCYTES PERCENT MAN 12 % (4-13); MYELOCYTE ABSOLUTE MAN 0.07 K/mm3 (0.00-0.00); MYELOCYTE PERCENT MAN 1 % (0-0); SEG NEUTROPHILS PERCENT MAN 67 % (41-73); TOTAL CELLS COUNTED 100
--- NOTE | 2022-04-10 03:35 | NUR ---
SHIFT SUMMARY 0130 PT CALLED RN INTO ROOM REPORTING 10/10 CHEST PAIN THAT IS RADIATING TO LEFT ARM. NEW ONSET OF CP. RAPID RESPONSE CALLED. ONCE TEAM ARRIVED CHEST PAIN NOW 6/10, CRAMPING, AND NOW EPIGASTRIC PAIN. EKG NEGATIVE. TROPS NEGATIVE THIS FAR. NEW ORDER FOR MAALOX. AFTERWARD, PT STATES CHEST PAIN HAS RESOLVED. TELE PLACED ON PT, NSR WITH BBB. PT BEDBOUND CURRENTLY, NO CHANGE IN STRENGTH, INCONTINENENT. PT ABLE TO USE CALL LIGHT, ABLE TO MAKE NEEDS KNOWN. WILL CONTINUE TO MONITOR.
--- NOTE | 2022-04-10 17:19 | NUR ---
SHIFT SUMMARY: PATIENT A&OX4. PLEASANT AND COOPERATIVE WITH CARE. USES CALL LIGHT APPROPRIATELY AND ABLE TO ADVOCATE FOR HIS NEEDS. PATIENT DENIED CP/CHEST DISCOMFORT THIS SHIFT. PATIENT MOBILITY SEEMS TO BE IMPROVING; ABLE TO SIT UP ON THE EOB AND PARTICIPATE IN PT SESSION THIS PM. PT RECOMMENDED SNF AND AWAITING PLACEMENT. PATIENT CONTINUES TO HAVE INCONTININCE VOID ATTENDS CHANGED T/O SHIFT. VITAL SIGNS REVIEWED. IV TO R AC, SALINE LOCKED. BED IN LOWEST POSITIONED, LOCKED AND CALL LIGHT IN REACH.
--- NOTE | 2022-04-11 03:41 | NUR ---
SHIFT SUMMARY NO OVERNIGHT EVENTS, NO CHANGE IN PT CONDITION. PT DENIES ANY CP/SOB/N/V. PT REPORTS BACK PAIN, ADMINISTERED PRN ORAL DILAUDID. PT REMAINS ON BASELINE 2L02. PT ABLE TO USE CALL LIGHT. WILL CONTINUE TO MONITOR.
--- NOTE | 2022-04-11 06:43 | NUR ---
PT HAD 12 BEATS VTACH. ASYMPOMATIC. 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
[2022-04-11 07:19] LABS: Albumin, Blood 2.8 g/dL (3.4-5.0); Anion Gap 5 mmol/L (6-16); Blood Urea Nitrogen 19 mg/dL (8-24); CO2, Blood 35 mmol/L (21-32); Calcium, Blood 9.9 mg/dL (8.5-10.1); Chloride, Blood 100 mmol/L (98-108); Glomerular Filtration Rate 94 (60-); Glucose, Blood 147 mg/dL (70-99); Magnesium, Blood 1.8 mg/dL (1.6-2.4); Phosphorus, Blood 2.8 mg/dL (2.5-4.9); Potassium, Blood 3.6 mmol/L (3.5-5.5); Sodium, Blood 140 mmol/L (136-145)
--- NOTE | 2022-04-11 18:12 | NUR ---
SHIFT SUMMARY PT A&O X 4. VSS. NO CHANGES NOTED. MEDICATED ONCE PER EMAR FOR C/O CHRONIC BACK PAIN WITH GOOD RESULTS. PLAN IS FOR SNF PLACEMENT, HAS BEEN ACCEPTED TO [facility] ONCE BED IS AVAILABLE.
--- NOTE | 2022-04-12 05:40 | NUR ---
NIGHTSHIFT SUMMARY No acute changes to patient status during the night. Bilateral LE weakness, patient able to slightly move LE, but unable to lift legs. Patient requires dependent care for repositioning. Patient requested to get OOB to recliner, transfered patient via hailey to chair. Vitals stable. Will continue plan of care, awaiting discharge planning.
--- NOTE | 2022-04-12 18:47 | NUR ---
SHIFT SUMMARY PT A&O X 4. VSS. PT UP TO CHAIR THIS AM. BACK TO BED AFTER BFAST FOR BM AND CLEAN UP. PT BACK TO CHAIR AFTER LUNCH. PT REMAINED UP IN CHAIR TIL AFTER DINNER. PLACED BACK IN BED AND CLEANED UP. PT IS INCONTINENT OF URINE AND STOOL. NO CLINICAL CHANGES THIS SHIFT. PLAN IS FOR SNF PLACEMENT UPON DC.
--- NOTE | 2022-04-13 04:46 | NUR ---
NIGHTSHIFT SUMMARY Patient requested PO Dilaudid for hip pain, PRN effective. Patient resting comfortably in bed all night. Tele notified RN patient had 1 run of VTACH/6 beats. Patient denies cardiac s/sx, resting comfortably in bed. Vitals stable. No acute changes to patient status, awaiting placement.
[2022-04-13 13:30] LABS: SARS-Cov-2 (COVID-19) PCR, MMC NEGATIVE (NEGATIVE)
[2022-04-13] MEDS ORDERED: MELA3 PO (16:29)
[2022-04-13] MEDS ORDERED: DOCUZEN 8.6-501 EACH PO (16:29)
--- NOTE | 2022-04-13 16:50 | NUR ---
DC TO SNF PT TO [facility]IA [facility] VIA W/C. PIV DC'D WITH CATH TIP INTACT, NO REDNESS OR SWELLING NOTED. 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 HARD COPY SCRIPT FOR PAIN MEDICATION INCLUDED IN PKT. COPY MADE. REPORT CALLED TO RECEIVING [facility] FREEDMAN.
== END 2022-04-13 17:02 ==
LOC: ER 10:56 → ERHOLD 10:57 → MEDS 19:01
PROVIDERS: Emergency Medicine; Family Medicine; Nurse Practitioner Acute Care; ADMIT Hospitalist
DX: G20 Parkinson's disease (principal); M54.9 Dorsalgia, unspecified; G89.29 Other chronic pain; I73.9 Peripheral vascular disease, unspecified; G47.33 Obstructive sleep apnea (adult) (pediatric); F32.A Depression, unspecified; N40.0 Benign prostatic hyperplasia without lower urinary tract symptoms; I50.32 Chronic diastolic (congestive) heart failure; I25.10 Atherosclerotic heart disease of native coronary artery without angina pectoris; J44.9 Chronic obstructive pulmonary disease, unspecified; G24.9 Dystonia, unspecified; I11.0 Hypertensive heart disease with heart failure; K21.9 Gastro-esophageal reflux disease without esophagitis; Z66 Do not resuscitate; J96.10 Chronic respiratory failure, unspecified whether with hypoxia or hypercapnia
CPT/HCPCS: 36415; 70450; 71045; 80048; 80053; 80069; 82803; 83690; 83735; 83880; 84484; 85007; 85025; 85027; 93005; 93010; 94640; 94660; 94664; 94760; 94762; 96372; 96374; 97110; 97110-CQ; 97112; 97162; 97530; 97530-CQ; 99285-25; A9270; G0378; J1650; U0004

== ENCOUNTER 2022-08-12 00:33 | Emergency (ER) | payer MEDICARE, OTHER ==
[~2022-08-12] VITALS: Ht 182.9 cm; Wt 108.9 kg
[~2022-08-12 00:33] MED LIST changes: +DOCUZEN 8.6-501 EACH PO; +MELA3 PO
[2022-08-12 02:22] LABS: Influenza A, PCR NEGATIVE (NEGATIVE); Influenza B, PCR NEGATIVE (NEGATIVE); Resp Syncytial Virus, PCR NEGATIVE (NEGATIVE); SARS-Cov-2 (COVID-19) PCR, MMC NEGATIVE (NEGATIVE)
[2022-08-12] MEDS ORDERED: ATROVENT HFA12.9 GM INH (02:52)
[2022-08-12] MEDS ORDERED: Ventolin5 MG/1 ML INH (02:52)
[2022-08-12] MEDS ORDERED: PRED20 PO (02:52)
== END 2022-08-12 03:50 | disposition home or self-care (01) ==
LOC: ER 00:33
PROVIDERS: Student in an Organized Health Care Education/Training Program
DX: J44.1 Chronic obstructive pulmonary disease with (acute) exacerbation (principal); Z99.81 Dependence on supplemental oxygen; I11.0 Hypertensive heart disease with heart failure; I50.32 Chronic diastolic (congestive) heart failure; I25.10 Atherosclerotic heart disease of native coronary artery without angina pectoris; G20 Parkinson's disease; K21.9 Gastro-esophageal reflux disease without esophagitis; Z87.891 Personal history of nicotine dependence; Z20.822 Contact with and (suspected) exposure to COVID-19; Z88.5 Allergy status to narcotic agent; Z79.899 Other long term (current) drug therapy; Z79.82 Long term (current) use of aspirin
CPT/HCPCS: 0241U; 71045; 93005; 93010; 94644; 94645; 94664; 99284-25; A9270; J7512